=== PATIENT | female | born 1935 | race Caucasian/White ===

== ENCOUNTER → 2021-05-04 09:02 | Outpatient (BNVA) | payer MEDICARE, SELFPAY | PROVIDERS: PCP Family Medicine; Visit Provider Internal Medicine | DX: M47.817 Spondylosis without myelopathy or radiculopathy, lumbosacral region (principal); M47.812 Spondylosis without myelopathy or radiculopathy, cervical region; M81.0 Age-related osteoporosis without current pathological fracture; R51.9 Headache, unspecified; I10 Essential (primary) hypertension; Z88.8 Allergy status to other drugs, medicaments and biological substances; Z91.040 Latex allergy status; Z79.899 Other long term (current) drug therapy | CPT/HCPCS: 99202; Q3014 ==

== ENCOUNTER 2021-05-27 06:17 | Outpatient (REF) | payer MEDICARE, SELFPAY ==
--- NOTE | ~2021-05-27 | FL_ITS ---
EXAMINATION: XR FLUOROSCOPY WITH IMAGES CLINICAL INFORMATION: M47.812 - Spondylosis without myelopathy or radiculopathy COMPARISON: None. TECHNIQUE: Fluoroscopy performed by Dr. Dudley. Fluoroscopy time: 1.5 minutes DAP: 5.42 Gycm2 Images: 10 FINDINGS: The lateral views show spinal needles overlying the cervical neural foramen C2 through C5. There are also some spinal needles overlying upper cervical facets. There is some contrast seen in the paraspinal soft tissues, possibly nerve sheaths. No visible vascular communication. FL/FL guidance in treatment room IMPRESSION: Fluoroscopy for pain management procedures.
== END 2021-05-27 06:18 | disposition home or self-care (01) ==
LOC: HO.RADIR 06:17
PROVIDERS: Visit Provider Internal Medicine
DX: M47.812 Spondylosis without myelopathy or radiculopathy, cervical region (principal)
CPT/HCPCS: Q9967

== ENCOUNTER → 2021-05-27 08:22 | Outpatient (BNVA) | payer MEDICARE, SELFPAY | PROVIDERS: PCP Family Medicine; Visit Provider Internal Medicine | DX: M47.812 Spondylosis without myelopathy or radiculopathy, cervical region (principal); R51.9 Headache, unspecified; I10 Essential (primary) hypertension; Z88.8 Allergy status to other drugs, medicaments and biological substances; Z91.040 Latex allergy status | CPT/HCPCS: 64490; 64491; 64492; Q9967 ==

== ENCOUNTER → 2021-06-01 08:12 | Outpatient (BNVA) | payer MEDICARE, SELFPAY | PROVIDERS: PCP Family Medicine; Visit Provider Internal Medicine | DX: M47.812 Spondylosis without myelopathy or radiculopathy, cervical region (principal); R51.9 Headache, unspecified | CPT/HCPCS: 99212 ==

== ENCOUNTER 2021-07-01 05:44 | Outpatient (REF) | payer MEDICARE, SELFPAY ==
--- NOTE | ~2021-07-01 | FL_ITS ---
EXAMINATION: XR FLUOROSCOPY WITH IMAGES CLINICAL INFORMATION: Spondylosis without myelopathy or radiculopathy. COMPARISON: Previous exam May 2021. TECHNIQUE: Fluoroscopy performed by Aye Simmons NP. Fluoroscopy time: 1.2 minutes DAP: 2.3 Gy-cm2 Images: 6 FINDINGS: Images demonstrate needle placement and contrast injection adjacent to the bilateral C2-C3, C3-C4, and C4-C5 neural foramen/facet joints FL/FL guidance in treatment room IMPRESSION: Fluoroscopy guidance for cervical spine pain management procedure.
== END 2021-07-01 05:45 | disposition home or self-care (01) ==
LOC: HO.RADIR 05:44
PROVIDERS: Visit Provider Internal Medicine
DX: M47.812 Spondylosis without myelopathy or radiculopathy, cervical region (principal); R51.9 Headache, unspecified
CPT/HCPCS: 64490; 64491; 64492; J1100; Q9967

== ENCOUNTER → 2021-07-31 09:05 | Outpatient (BNVA) | payer MEDICARE, SELFPAY | PROVIDERS: PCP Family Medicine; Visit Provider Internal Medicine | DX: M47.812 Spondylosis without myelopathy or radiculopathy, cervical region (principal); R51.9 Headache, unspecified | CPT/HCPCS: 99212 ==

== ENCOUNTER 2021-09-02 06:07 | Outpatient (REF) | payer MEDICARE, SELFPAY ==
--- NOTE | ~2021-09-02 | FL_ITS ---
EXAMINATION: XR FLUOROSCOPY WITH IMAGES CLINICAL INFORMATION: Spondylosis without myelopathy or radiculopathy. COMPARISON: None. TECHNIQUE: Fluoroscopy performed by Aye Simmons NP. Fluoroscopy time: 0.8 minutes DAP: 2.40 Gy-cm2 Images: 4 FINDINGS: There are 4 digital images obtained with 2 needles positioned adjacent to the right C3 and C4 transverse processes for pain management. FL/FL guidance in treatment room IMPRESSION: Fluoroscopy was provided to Aye Simmons for pain management.
== END 2021-09-02 06:08 | disposition home or self-care (01) ==
LOC: HO.RADIR 06:07
PROVIDERS: Visit Provider Internal Medicine
DX: M47.812 Spondylosis without myelopathy or radiculopathy, cervical region (principal)
CPT/HCPCS: 64633; 64634

== ENCOUNTER → 2021-10-05 08:05 | Outpatient (BNVA) | payer MEDICARE, SELFPAY | PROVIDERS: PCP Family Medicine; Visit Provider Internal Medicine | DX: M47.812 Spondylosis without myelopathy or radiculopathy, cervical region (principal); M25.512 Pain in left shoulder | CPT/HCPCS: 99212 ==

== ENCOUNTER 2021-11-18 05:56 | Outpatient (REF) | payer MEDICARE, SELFPAY ==
--- NOTE | ~2021-11-18 | FL_ITS ---
EXAMINATION: XR FLUOROSCOPY WITH IMAGES CLINICAL INFORMATION: Left shoulder pain COMPARISON: Chest radiographs 07/08/2016 TECHNIQUE: Fluoroscopy performed by Dr. Ankur Dudley. Fluoroscopy time: under 1 minute. DAP: 0.102 Gycm2 Images: 1 FINDINGS: There is spinal needle overlying the superior medial aspect left humeral head. There is mild degenerative spurring at inferomedial humeral head. FL/FL guidance in treatment room IMPRESSION: Fluoroscopy for pain management procedure.
--- NOTE | ~2021-11-18 | FL_ITS ---
EXAMINATION: XR FLUOROSCOPY WITH IMAGES CLINICAL INFORMATION: M47.812 - Spondylosis without myelopathy or radiculopathy COMPARISON: Fluoroscopy with spot views 09/02/2021 TECHNIQUE: Fluoroscopy performed by Dr. Ankur Dudley. Fluoroscopy time: 0.7 minutes DAP: 1.37 Gycm2 Images: 5 FINDINGS: There are spinal needles overlying the right lateral masses cervical spine at 3 levels, approximately C2, C3, C4 on the lateral projection. FL/FL guidance in treatment room IMPRESSION: Fluoroscopy for pain management procedure.
== END 2021-11-18 05:57 | disposition home or self-care (01) ==
LOC: HO.RADIR 05:56
PROVIDERS: Visit Provider Internal Medicine
DX: M47.812 Spondylosis without myelopathy or radiculopathy, cervical region (principal); M25.512 Pain in left shoulder
CPT/HCPCS: 20610; 20611; 64491; 64633; 64634; J3300

== ENCOUNTER → 2021-12-18 08:55 | Outpatient (BNVA) | payer MEDICARE, SELFPAY | PROVIDERS: PCP Family Medicine; Visit Provider Internal Medicine | DX: Z13.89 Encounter for screening for other disorder (principal) | CPT/HCPCS: Q3014 ==

== ENCOUNTER 2024-04-26 11:49 | Outpatient (REF) | payer MEDICARE, SELFPAY ==
--- NOTE | ~2024-04-26 | XR_ITS ---
EXAMINATION: XR HIP, RIGHT, WITH AP PELVIS CLINICAL INFORMATION: Right leg, groin pain. COMPARISON: CT imaging from 12/07/2013 TECHNIQUE: Two views of the right hip. Pelvis, AP view. FINDINGS: The osseous pelvic ring is intact. Alignment is normal the pubic symphysis, hips and sacroiliac joints. Chronic severe hypertrophic facet arthropathy at L5-S1. Sacrum and sacroiliac joints are unremarkable. The old opacities at the inferior pelvis require clinical information since they could be from prior injection of a urethral bulking agent. The tibia is identified. The femoral head is well-positioned within the acetabulum. Small marginal osteophytes are noted. No femoral fracture or osteonecrosis. Atherosclerotic calcification of iliac and femoral arteries. XR/XR hip RT w PEL1V IMPRESSION: * Chronic hypertrophic facet arthropathy at L4-5 and L5-S1. * Mild osteoarthrosis of the right hip. * No acute process. No fracture or malalignment.
== END 2024-04-26 11:50 | disposition home or self-care (01) ==
LOC: HO.XRAY 11:49
PROVIDERS: PCP Family Medicine; Visit Provider Family Medicine
DX: M79.604 Pain in right leg (principal); R10.30 Lower abdominal pain, unspecified
CPT/HCPCS: 73502

== ENCOUNTER 2024-12-06 06:28 | Day surgery (SDC) | payer MEDICARE, SELFPAY ==
[2024-12-04 11:42] VITALS: BMI 31.5
--- NOTE | 2024-12-05 10:04 | P.CONAN_ITS ---
Documented by User: Lisa Marsh NP 12/05/24 10:11 HPI - Anesthesia Eval Consult details Narrative: 89yo F for Colonoscopy Afib - xarelto Follow [facility]. Optimized to proceed. Notes nml pharm nuc stress 11/2024 and echo 11/2024 showing mild to mod aortic stenosis (unchanged from 2021) PMFSH Active Problems Active Problems: All Active Problems Cervical spondylosis (Acute) Left shoulder pain (Acute) Headache, cervicogenic (Acute) Osteoporosis (Acute) Lumbar and sacral spondyloarthritis (Acute) Cervical spondyloarthritis (Acute) Osteoarthritis (Acute) Sciatica (Acute) COPD (chronic obstructive pulmonary disease) (Acute) Leg cramps (Acute) Insomnia (Acute) Sinusitis (Acute) GERD (gastroesophageal reflux disease) (Acute) Hypertension (Acute) Past Medical History Medical History Hammer toe Hx of lipoma Atrial fibrillation Asthma Hiatal hernia Left shoulder pain Headache, cervicogenic Osteoporosis 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 Osteoarthritis Sciatica Pneumonia Venous insufficiency Diverticulitis COPD (chronic obstructive pulmonary disease) Leg cramps Insomnia Sinusitis GERD (gastroesophageal reflux disease) Hypertension Surgical History Surgical History History of surgery on arm History of surgery on wrist History of bilateral cataract extraction Hx of shoulder surgery History of left knee replacement History of carpal tunnel release History of lobectomy of lung Hx of foot surgery Hx of section History of esophagogastroduodenoscopy (EGD) H/O colonoscopy Status post revision of total knee replacement History of total knee replacement (TKR) H/O total hysterectomy H/O vein stripping Social History Social History Are you a primary care provider to a significant other at home: No Do you presently have visiting nurse or other home services: No Alcohol intake: never Patient Tobacco Use Status: Never used Tobacco Use of substances other than those prescribed or required for medical reasons: No Have you been hit, kicked, punched, or otherwise hurt by someone within the past year? If so, by whom?: No Advance Directives: No Advance Directives Information Provided: Yes Recently lost weight without trying: No Nutrition Risks: No Nutritional Risk Meds Allergies Allergy/AdvReac Type Severity Reaction Status Date / Time prednisone AdvReac Severe mouth sores Verified 12/06/24 06:54 benzoin AdvReac Intermediate rash Verified 12/06/24 06:54 latex Allergy Intermediate Itching Uncoded 12/18/21 08:55 Home Medications ?Medication ?Instructions ?Recorded ?Confirmed ?Last Taken ?Type cholecalciferol (vitamin D3) 25 25 mcg PO BID 05/04/21 12/04/24 Unknown History mcg (1,000 unit) capsule gabapentin 300 mg capsule 300 mg PO BID 05/04/21 12/04/24 Unknown History magnesium 250 mg tablet 250 mg PO DAILY 05/04/21 12/04/24 Unknown History montelukast 10 mg tablet 10 mg PO BEDTIME 05/04/21 12/04/24 Unknown History tramadol 50 mg tablet 50 mg PO DAILY PRN Pain 05/04/21 12/04/24 Unknown History spironolactone 25 mg tablet 25 mg PO DAILY 07/31/21 12/06/24 12/03/24 History albuterol sulfate 90 mcg/actuation 1 puff inhalation QID PRN 12/04/24 12/04/24 Unknown History aerosol inhaler Shortness Of Breath Or Wheezing betamethasone dipropionate 0.05 % 1 appl topical BID PRN Skin 12/04/24 12/04/24 Unknown History topical ointment Irritation budesonide-formoterol HFA 160 inhalation BID 12/04/24 Unknown History mcg-4.5 mcg/actuation aerosol inhaler (Breyna) calcium carbonate (Calcium 600) 600 mg PO BIDAC 12/04/24 12/04/24 Unknown History fluticasone 250 mcg-salmeterol 50 1 inh inhalation BID 12/04/24 12/04/24 Unknown History mcg/dose blistr powdr for inhalation (Advair Diskus) furosemide 20 mg tablet 20 mg PO DAILY 12/04/24 12/04/24 Unknown History multivitamin with minerals-folic 1 tab PO DAILY 12/04/24 12/04/24 Unknown History acid 80 mcg chewable tablet (Centrum Adult 50 Plus) rivaroxaban 20 mg tablet (Xarelto) 20 mg DAILY 12/04/24 12/06/24 12/03/24 History losartan 100 mg tablet 100 mg DAILY 12/06/24 12/06/2412/06/25 History terazosin 5 mg capsule 5 mg BEDTIME 12/06/24 12/06/24 12/06/24 History Exam Height,Weight and Vital Signs: Height 4 ft 11 in Weight 70.76 kg Narrative Narrative: EKG 10/2024 NSR ?LAE ECHO 11/2023 LV function and size nml. Borderline LVH. EF in range of 60%. Moderate DD. RV size and function nml LA moderately dilated. RA nml. 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 Ascending aorta was measured at 3.5 and is now 3.8cm in diameter Pharm Nuc Stress 11/2024 Nml without chest pain or ischemic ECG changes Perfusion imaging revealed no areas of ischemia or infarct LVEF 68% Assessment and Plan Assessment Anesthesia Assessment: Chart Reviewed Documented by User: Neetu Hardy MD 12/06/24 08:01 [facility] Active Problems Active Problems: All Active Problems Cervical spondylosis (Acute) Left shoulder pain (Acute) Headache, cervicogenic (Acute) Osteoporosis (Acute) Lumbar and sacral spondyloarthritis (Acute) Cervical spondyloarthritis (Acute) Osteoarthritis (Acute) Sciatica (Acute) COPD (chronic obstructive pulmonary disease) (Acute) Leg cramps (Acute) Insomnia (Acute) Sinusitis (Acute) GERD (gastroesophageal reflux disease) (Acute) Hypertension (Acute) Paroxysmal afib Past Medical History Medical History Hammer toe Hx of lipoma Atrial fibrillation Asthma Hiatal hernia Left shoulder pain Headache, cervicogenic Osteoporosis 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 Osteoarthritis Sciatica Pneumonia Venous insufficiency Diverticulitis COPD (chronic obstructive pulmonary disease) Leg cramps Insomnia Sinusitis GERD (gastroesophageal reflux disease) Hypertension Family History Family history of problems with anesthesia: No Surgical History Surgical History History of surgery on arm History of surgery on wrist History of bilateral cataract extraction Hx of shoulder surgery History of left knee replacement History of carpal tunnel release History of lobectomy of lung Hx of foot surgery Hx of section History of esophagogastroduodenoscopy (EGD) H/O colonoscopy Status post revision of total knee replacement History of total knee replacement (TKR) H/O total hysterectomy H/O vein stripping History of Problems with Anesthesia: No Social History Social History Are you a primary care provider to a significant other at home: No Do you presently have visiting nurse or other home services: No Alcohol intake: never Patient Tobacco Use Status: Never used Tobacco Use of substances other than those prescribed or required for medical reasons: No Have you been hit, kicked, punched, or otherwise hurt by someone within the past year? If so, by whom?: No Advance Directives: No Advance Directives Information Provided: Yes Recently lost weight without trying: No Nutrition Risks: No Nutritional Risk Meds Allergies Allergy/AdvReac Type Severity Reaction Status Date / Time prednisone AdvReac Severe mouth sores Verified 12/06/24 06:54 benzoin AdvReac Intermediate rash Verified 12/06/24 06:54 latex Allergy Intermediate Itching Uncoded 12/18/21 08:55 Home Medications ?Medication ?Instructions ?Recorded ?Confirmed ?Last Taken ?Type cholecalciferol (vitamin D3) 25 25 mcg PO BID 05/04/21 12/04/24 Unknown History mcg (1,000 unit) capsule gabapentin 300 mg capsule 300 mg PO BID 05/04/21 12/04/24 Unknown History magnesium 250 mg tablet 250 mg PO DAILY 05/04/21 12/04/24 Unknown History montelukast 10 mg tablet 10 mg PO BEDTIME 05/04/21 12/04/24 Unknown History tramadol 50 mg tablet 50 mg PO DAILY PRN Pain 05/04/21 12/04/24 Unknown History spironolactone 25 mg tablet 25 mg PO DAILY 07/31/21 12/06/24 12/03/24 History albuterol sulfate 90 mcg/actuation 1 puff inhalation QID PRN 12/04/24 12/04/24 Unknown History aerosol inhaler Shortness Of Breath Or Wheezing betamethasone dipropionate 0.05 % 1 appl topical BID PRN Skin 12/04/24 12/04/24 Unknown History topical ointment Irritation budesonide-formoterol HFA 160 inhalation BID 12/04/24 Unknown History mcg-4.5 mcg/actuation aerosol inhaler (Breyna) calcium carbonate (Calcium 600) 600 mg PO BIDAC 12/04/24 12/04/24 Unknown History fluticasone 250 mcg-salmeterol 50 1 inh inhalation BID 12/04/24 12/04/24 Unknown History mcg/dose blistr powdr for inhalation (Advair Diskus) furosemide 20 mg tablet 20 mg PO DAILY 12/04/24 12/04/24 Unknown History multivitamin with minerals-folic 1 tab PO DAILY 12/04/24 12/04/24 Unknown History acid 80 mcg chewable tablet (Centrum Adult 50 Plus) rivaroxaban 20 mg tablet (Xarelto) 20 mg DAILY 12/04/24 12/06/24 12/03/24 History losartan 100 mg tablet 100 mg DAILY 12/06/24 12/06/24 12/06/24 History terazosin 5 mg capsule 5 mg BEDTIME 12/06/24 12/06/24 12/06/24 History Exam Height,Weight and Vital Signs: Height 4 ft 11 in Weight 70.76 kg Vital Signs Temp Pulse Resp BP Pulse Ox O2 Del Method 12/06/24 07:08 98.7 F 72 14 117/48 L 95 Room Air Airway Mallampati Class: II TM Dist: >3cm Neck ROM: Full Denture: Upper and Lower Loose/Missing/Broken Teeth: Yes Heart: RRR Lungs: CTAB Assessment and Plan Assessment Anesthesia Assessment: Anesthesia Plan Discussed and Chart Reviewed Final Anesthetic Review Family History of Problems with Anesthesia: No History of Problems with Anesthesia: No NPO: Yes ASA Class: III Final Preanesthetic Review: No Changes in Pt Med Stat, Meds/Allgs Chart Reviewed, Consent Obtained/Reviewed and Anes Risks/Benef Reviewed Patient Risk: Intermediate Procedure Risk: Low Assessment/Block/Sedation in SS: Assess/Block/Sedation-SS Anesthetic Plan Anesthetic Plan: TIVA Disposition: Standard PACU
[2024-12-06 07:08] VITALS: BP 117/48; PULSE 72; RESP 14; TEMP 37.1; O2SAT 95; BMI 31.2
[2024-12-06] MEDS: Lactated Ringers 1,000 ML 50 ML IVCONT (07:16)
[2024-12-06 08:32] VITALS: BP 99/39; PULSE 69; RESP 16; TEMP 36.8; O2SAT 98
[2024-12-06 08:39] VITALS: BP 93/42; PULSE 67; RESP 16; O2SAT 97
--- NOTE | 2024-12-06 08:40 | PM.OP ---
Brief Operative Note Date of Service: 12/06/24 Pre-op diagnosis: Rectal bleeding Post-op diagnosis: other (Distal rectal mass, Diverticulosis) Procedure: Colonoscopy to the cecum with biopsies Surgeon: Duke Whitley MD Anesthesia: MAC Was an Wet Crown Blocking Operator used for this Procedure?: No Estimated blood loss (mL): 2.0 Pathology: other (A. Distal rectal mass) Condition: stable Disposition: PACU
[2024-12-06 08:47] VITALS: BP 129/45; PULSE 70; RESP 16; O2SAT 97
[2024-12-06 08:48] VITALS: BP 126/43; PULSE 67; RESP 16; O2SAT 96
[2024-12-06 08:54] VITALS: BP 122/53; PULSE 70; RESP 16; TEMP 37.2; O2SAT 95
--- NOTE | 2024-12-06 09:52 | OP_ITS ---
DATE OF SERVICE: 12/06/2024 SURGEON: Duke Whitley MD INDICATIONS: Patient presents for evaluation of intermittent hematochezia and fecal soiling. Full consent has been obtained from her for this, including risks of bleeding and perforation. PREOPERATIVE DIAGNOSIS: POSTOPERATIVE DIAGNOSIS: PROCEDURE PERFORMED: Colonoscopy to cecum with biopsies. ESTIMATED BLOOD LOSS: COMPLICATIONS: ANESTHESIA: Medication used, monitored anesthesia care. ASSISTANTS: SPECIMENS: PREOPERATIVE DIAGNOSES: Hematochezia and fecal soiling. POSTOPERATIVE DIAGNOSES: Hematochezia and fecal soiling. Distal rectal mass, internal hemorrhoids, diverticulosis. DESCRIPTION OF PROCEDURE: Patient was placed in left lateral decubitus position. The digital rectal exam revealed some external hemorrhoidal tissue. The Olympus video pediatric colonoscope was entered into the rectum and advanced easily to the cecum. Once in the cecum, I did identify normal-appearing cecal pouch with appendiceal orifice and a normal-appearing ileocecal valve. The entire cecum and ileocecal valve appeared normal. Scope was slowly withdrawn assessing all mucosal surfaces carefully. Preparation was excellent. I did not visualize any sign of colitis nor angiodysplasia. There was a moderate amount of sigmoid diverticulosis. I did not visualize any polyps in the colon. Once in the rectum, I did retroflex and there was a mass seen in the distal most portion of the rectum abutting the dentate line in the area of some hemorrhoids. The lesion encompassed approximately 50% of the circumference of the lower rectum. It was not particularly ulcerated nor friable, but clearly was abnormal tissue and consistent with at least adenomatous or villous adenomatous tissue. It was quite flat with one edge that was particularly large and lobulated and then the remaining tissue was quite flat along the surface of the distal rectum. Multiple biopsies were obtained from it. I did not attempt to remove it given its location and appearance. The scope was straightened and withdrawn from the patient. She tolerated the procedure well and was returned to the recovery area in stable condition. IMPRESSION: 1. Distal rectal mass, status post biopsy. 2. Diverticulosis. PLAN: Results of the biopsies will be checked and then further plans regarding potential treatment options will be discussed with her. I did review the findings with her and her in detail today. If there is cancer in the biopsies, then she would need an Oncology and Surgical referral with consideration for something such as radiation treatment. On the other hand, if the biopsies all show only adenomatous or villous adenomatous tissue without malignancy, then another option could be attempted transanal endoscopic removal. However, its proximity to the dentate line and hemorrhoids could prove to make it difficult to remove in its entirety. I did advise her to resume her Xarelto on December 09. She was advised to stay off all aspirin and NSAIDs long-term. Again, this has all been reviewed with the patient and her and I shall follow up with them once we have the biopsy results. MD KEENA Rodas/KEIKO / [id number] MTDD
== END 2024-12-06 09:46 | disposition home or self-care (01) ==
PROVIDERS: PCP Family Medicine; Visit Provider Internal Medicine
PROC: 0DJD8ZZ Inspection of Lower Intestinal Tract, Via Natural or Artificial Opening Endoscopic (ICD-10-PCS; CPT 45378; principal; 2024-12-06 07:30)
DX: K62.5 Hemorrhage of anus and rectum (principal); R15.1 Fecal smearing; Z86.0101 Personal history of adenomatous and serrated colon polyps; D12.8 Benign neoplasm of rectum; K57.30 Diverticulosis of large intestine without perforation or abscess without bleeding; Z87.19 Personal history of other diseases of the digestive system; K64.8 Other hemorrhoids; K64.4 Residual hemorrhoidal skin tags; K21.9 Gastro-esophageal reflux disease without esophagitis; I10 Essential (primary) hypertension; I48.91 Unspecified atrial fibrillation; J45.909 Unspecified asthma, uncomplicated; M81.0 Age-related osteoporosis without current pathological fracture; Z79.01 Long term (current) use of anticoagulants; Z79.51 Long term (current) use of inhaled steroids; Z79.899 Other long term (current) drug therapy; Z91.040 Latex allergy status; Z88.8 Allergy status to other drugs, medicaments and biological substances; Z98.890 Other specified postprocedural states
CPT/HCPCS: 45380; 88305; J2003; J2704

== ENCOUNTER 2024-12-26 11:23 | Outpatient (AMB) | payer MEDICARE, SELFPAY ==
--- NOTE | 2024-12-26 11:22 | MHC.OFFVIS ---
Vital Signs 12/26/24 11:35 Height 4 ft 11 in Weight 162 lb 6 oz BMI 32.8 BP 157/69 H Blood Pressure Location Lt brachial Position Sitting Pulse 69 Intake Visit Reasons: hematochezia Intake Note: Patient is seen in office for evaluation of hematochezia. Pt c/o: onset few weeks, blood in toilet paper and bowl, denies n/v/d/c, no abdominal pain, or prior concerns with bowels [employer] Required: No Accompanied by: Daughter Allergies prednisone Adverse Reaction (Severe, Verified 12/26/24 11:30) mouth sores benzoin Adverse Reaction (Intermediate, Verified 12/26/24 11:30) rash latex Allergy (Intermediate, Uncoded 12/26/24 11:30) Itching HPI HPI hematochezia: Details: 89-year-old female referred for rectal lesion. She had undergone a colonoscopy with Dr. Whitley last 12/04/2024 because of this is of blood per rectum. She was noted to have what appeared to be an adenomatous looking lesion in the very distal rectum near the dentate line. Biopsy. This showed a tubulovillous adenoma. This was not resectable endoscopically because of the size. She was therefore referred to me. She describes occasional bleeding. She says that this started around November of 2024. She says that this would be bright blood per rectum. She still sees this occasionally. She is on Eliquis and has been on this for many years because of atrial fibrillation. She also has a history of a DVT and a PE more than 50 years ago. 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 Osteoarthritis Sciatica Pneumonia Venous insufficiency Diverticulitis COPD (chronic obstructive pulmonary disease) Leg cramps Insomnia Sinusitis GERD (gastroesophageal reflux disease) Hypertension Surgical History History of surgery on arm History of surgery on wrist History of bilateral cataract extraction Hx of shoulder surgery History of left knee replacement History of carpal tunnel release History of lobectomy of lung Hx of foot surgery Hx of section History of esophagogastroduodenoscopy (EGD) H/O colonoscopy Status post revision of total knee replacement History of total knee replacement (TKR) H/O total hysterectomy H/O vein stripping Social History Are you a primary career law clerk to a significant other at home: No Do you presently have visiting nurse or other home services: No Alcohol intake: never Patient Tobacco Use Status: Never used Tobacco Review of Systems Const Denies chills and Denies fever(s) Card Denies chest pain, Reports dyspnea (She has asthma) and Reports dyspnea on exertion Resp Denies cough, Reports dyspnea (She has asthma) and Reports dyspnea on exertion GI Reports hematochezia and Denies change in bowel habits Denies hematuria Musc Denies back pain, Reports arthralgias and Denies limited range of motion Neuro Denies focal weakness and Denies convulsions Psych Denies depression and Denies mood swings Physical Exam Vital Signs: Last Vital Signs Pulse 69 12/26/24 11:35 BP 157/69 H 12/26/24 11:35 BMI result Body Mass Index 32.8 Const General: comfortable and no acute distress Orientation/consciousness: patient oriented x3 Neck Neck: Yes no lymphadenopathy Resp Auscultation: clear to auscultation bilaterally Cardio Rhythm: regular rhythm GI Palpation (GI): Soft to palpation, nontender and no guarding Neuro General: patient oriented x3 Assessment & Plan Assessment & Plan (1) Rectal mass: Code(s): K62.89 - Other specified diseases of anus and rectum Category: Medical Plan: She has this flat, wide lesion in the rectum at the level of the dentate line. Photographic documentation has been reviewed. I explained to her the technique of exam under anesthesia, and excision of the rectal lesion under anesthesia. I reviewed the risks including but not limited to bleeding, infections, poor healing, postop pain, as well as benefits and alternatives. She understands that anesthesia itself has perioperative risks. I explained to her what to expect postoperatively. She wants to proceed. She is on Eliquis and this will be held for 3 days preoperatively. Coding Level of Care Code New Pt Level 3 (21757) Diagnoses Rectal mass K62.89
[2024-12-26 11:35] VITALS: BP 157/69; PULSE 69; BMI 32.8
== END 2024-12-26 11:42 | disposition home or self-care (01) ==
LOC: HO.HGS 11:23
PROVIDERS: PCP Family Medicine; Visit Provider Surgery
DX: K62.89 Other specified diseases of anus and rectum (principal)
CPT/HCPCS: 99203

== ENCOUNTER → 2024-12-26 11:23 | Outpatient (BNVA) | payer MEDICARE, SELFPAY | PROVIDERS: PCP Family Medicine; Visit Provider Surgery | DX: K62.89 Other specified diseases of anus and rectum (principal); Z79.01 Long term (current) use of anticoagulants | CPT/HCPCS: 99202 ==

== ENCOUNTER 2025-01-29 09:52 | Day surgery (SDC) | payer MEDICARE, SELFPAY ==
[2025-01-25 13:56] VITALS: BMI 31.7
--- NOTE | 2025-01-28 08:58 | P.CONAN_ITS ---
Documented by User: Lisa Marsh NP 01/28/25 12:32 HPI - Anesthesia Eval Consult details Narrative: 89yo F for Excision Rectal Lesion Follows [facility] for PAF (xarelto), htn, heart failure, aortic stenosis - optimized per 01/2025 office visit [facility] Active Problems Active Problems: All Active Problems Cervical spondylosis (Acute) Rectal mass (Acute) Left shoulder pain (Acute) Headache, cervicogenic (Acute) Osteoporosis (Acute) Lumbar and sacral spondyloarthritis (Acute) Cervical spondyloarthritis (Acute) Osteoarthritis (Acute) Sciatica (Acute) COPD (chronic obstructive pulmonary disease) (Acute) Leg cramps (Acute) Insomnia (Acute) Sinusitis (Acute) GERD (gastroesophageal reflux disease) (Acute) Hypertension (Acute) Past Medical History Medical History (Updated 01/25/25 @ 13:56 by Ingrid Daniels RN) Atrial septal aneurysm Chest pain Absence of lobe of lung Secondary hypercoagulable state Nonrheumatic aortic (valve) stenosis Dyspnea on exertion Diastolic heart failure Rectal mass Hammer toe Hx of lipoma Atrial fibrillation Asthma Hiatal hernia Left shoulder pain Headache, cervicogenic Osteoporosis 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 Osteoarthritis Sciatica Pneumonia Venous insufficiency Diverticulitis COPD (chronic obstructive pulmonary disease) Leg cramps Insomnia Sinusitis GERD (gastroesophageal reflux disease) Hypertension Family History Family history of problems with anesthesia: No Surgical History Surgical History (Updated 01/29/25 @ 10:42 by Veronika Mitchell RN) History of surgery on arm History of surgery on wrist History of bilateral cataract extraction Hx of shoulder surgery History of left knee replacement History of carpal tunnel release History of lobectomy of lung Hx of foot surgery Hx of section History of esophagogastroduodenoscopy (EGD) H/O colonoscopy Status post revision of total knee replacement History of total knee replacement (TKR) H/O total hysterectomy H/O vein stripping History of Problems with Anesthesia: No Social History Social History Are you a primary healthcare social worker to a significant other at home: No Do you presently have visiting nurse or other home services: No Alcohol intake: never Patient Tobacco Use Status: Never used Tobacco Use of substances other than those prescribed or required for medical reasons: No Are you DNR?: No Advance Directives: No Advance Directives Information Provided: Yes Patient : No : No Poor oral hygiene: No Meds Allergies Allergy/AdvReac Type Severity Reaction Status Date / Time prednisone AdvReac Severe mouth sores Verified 12/26/24 11:30 benzoin AdvReac Intermediate rash Verified 12/26/24 11:30 latex Allergy Intermediate Itching Uncoded 12/26/24 11:30 Home Medications ?Medication ?Instructions ?Recorded ?Confirmed ?Last Taken ?Type cholecalciferol (vitamin D3) 25 25 mcg PO BID 05/04/21 12/04/24 Unknown History mcg (1,000 unit) capsule gabapentin 300 mg capsule 300 mg PO BID 05/04/21 12/04/24 Unknown History magnesium 250 mg tablet 250 mg PO DAILY 05/04/21 12/04/24 Unknown History montelukast 10 mg tablet 10 mg PO BEDTIME 05/04/21 12/04/24 Unknown History tramadol 50 mg tablet 50 mg PO DAILY PRN Pain 05/04/21 12/04/24 Unknown History spironolactone 25 mg tablet 25 mg PO DAILY 07/31/21 12/06/24 12/03/24 History albuterol sulfate 90 mcg/actuation 1 puff inhalation QID PRN 12/04/24 12/04/24 01/29/25 08:00 History aerosol inhaler Shortness Of Breath Or Wheezing betamethasone dipropionate 0.05 % 1 appl topical BID PRN Skin 12/04/24 12/04/24 Unknown History topical ointment Irritation budesonide-formoterol HFA 160 inhalation BID 12/04/24 01/29/25 08:00 History mcg-4.5 mcg/actuation aerosol inhaler (Breyna) calcium carbonate (Calcium 600) 600 mg PO BIDAC 12/04/24 12/04/24 Unknown History fluticasone 250 mcg-salmeterol 50 1 inh inhalation BID 12/04/24 12/04/24 Unknown History mcg/dose blistr powdr for inhalation (Advair Diskus) furosemide 20 mg tablet 20 mg PO DAILY 12/04/24 12/04/24 Unknown History multivitamin with minerals-folic 1 tab PO DAILY 12/04/24 12/04/24 Unknown History acid 80 mcg chewable tablet (Centrum Adult 50 Plus) rivaroxaban 20 mg tablet (Xarelto) 20 mg DAILY 12/04/24 12/06/24 01/25/25 History losartan 100 mg tablet 100 mg DAILY 12/06/24 12/06/24 12/06/24 History terazosin 5 mg capsule 5 mg BEDTIME 12/06/24 12/06/24 12/06/24 History Exam Height,Weight and Vital Signs: Height 4 ft 11 in Weight 71.214 kg Narrative Narrative: EKG 10/2024 NSR @ 67, ? LAE Nuc stress 11/2024 nml, no areas of ischemia or infarction noted ECHO 11/2024 nml LV chamber size with mild concentric LVH EF 60-65% Grade 2 DD No regional WMA Moderately dilated LA with an atrial septal aneurysm that is highly mobile nml RA Nml RV size and function Mild aortic valve regurg with a centrally directed jet Mild to moderate with mean gradient 17-18 Moderate TR without stenosis, molderately elevated RV sys pressure. Ascending aorta just above upper limits of nml at 3.8cm No significant change from 09/2022 Assessment and Plan Assessment Anesthesia Assessment: Chart Reviewed Final Anesthetic Review Family History of Problems with Anesthesia: No History of Problems with Anesthesia: No Documented by User: Stephany Mendoza MD 01/29/25 10:59 [facility] Past Medical History Medical History (Updated 01/25/25 @ 13:56 by Ingrid Daniels RN) Atrial septal aneurysm Chest pain Absence of lobe of lung Secondary hypercoagulable state Nonrheumatic aortic (valve) stenosis Dyspnea on exertion Diastolic heart failure Rectal mass Hammer toe Hx of lipoma Atrial fibrillation Asthma Hiatal hernia Left shoulder pain Headache, cervicogenic Osteoporosis 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 Osteoarthritis Sciatica Pneumonia Venous insufficiency Diverticulitis COPD (chronic obstructive pulmonary disease) Leg cramps Insomnia Sinusitis GERD (gastroesophageal reflux disease) Hypertension Surgical History Surgical History (Updated 01/29/25 @ 10:42 by Veronika Mitchell RN) History of surgery on arm History of surgery on wrist History of bilateral cataract extraction Hx of shoulder surgery History of left knee replacement History of carpal tunnel release History of lobectomy of lung Hx of foot surgery Hx of section History of esophagogastroduodenoscopy (EGD) H/O colonoscopy Status post revision of total knee replacement History of total knee replacement (TKR) H/O total hysterectomy H/O vein stripping Social History Social History Are you a primary healthcare social worker to a significant other at home: No Do you presently have visiting nurse or other home services: No Alcohol intake: never Patient Tobacco Use Status: Never used Tobacco Use of substances other than those prescribed or required for medical reasons: No Are you DNR?: No Advance Directives: No Advance Directives Information Provided: Yes Patient : No : No Poor oral hygiene: No Meds Allergies Allergy/AdvReac Type Severity Reaction Status Date / Time prednisone AdvReac Severe mouth sores Verified 12/26/24 11:30 benzoin AdvReac Intermediate rash Verified 12/26/24 11:30 latex Allergy Intermediate Itching Uncoded 12/26/24 11:30 Home Medications ?Medication ?Instructions ?Recorded ?Confirmed ?Last Taken ?Type cholecalciferol (vitamin D3) 25 25 mcg PO BID 05/04/21 12/04/24 Unknown History mcg (1,000 unit) capsule gabapentin 300 mg capsule 300 mg PO BID 05/04/21 12/04/24 Unknown History magnesium 250 mg tablet 250 mg PO DAILY 05/04/21 12/04/24 Unknown History montelukast 10 mg tablet 10 mg PO BEDTIME 05/04/21 12/04/24 Unknown History tramadol 50 mg tablet 50 mg PO DAILY PRN Pain 05/04/21 12/04/24 Unknown History spironolactone 25 mg tablet 25 mg PO DAILY 07/31/21 12/06/24 12/03/24 History albuterol sulfate 90 mcg/actuation 1 puff inhalation QID PRN 12/04/24 12/04/24 01/29/25 08:00 History aerosol inhaler Shortness Of Breath Or Wheezing betamethasone dipropionate 0.05 % 1 appl topical BID PRN Skin 12/04/24 12/04/24 Unknown History topical ointment Irritation budesonide-formoterol HFA 160 inhalation BID 12/04/24 01/29/25 08:00 History mcg-4.5 mcg/actuation aerosol inhaler (Breyna) calcium carbonate (Calcium 600) 600 mg PO BIDAC 12/04/24 12/04/24 Unknown Hi story fluticasone 250 mcg-salmeterol 50 1 inh inhalation BID 12/04/24 12/04/24 Unknown History mcg/dose blistr powdr for inhalation (Advair Diskus) furosemide 20 mg tablet 20 mg PO DAILY 12/04/24 12/04/24 Unknown History multivitamin with minerals-folic 1 tab PO DAILY 12/04/24 12/04/24 Unknown History acid 80 mcg chewable tablet (Centrum Adult 50 Plus) rivaroxaban 20 mg tablet (Xarelto) 20 mg DAILY 12/04/24 12/06/24 01/25/25 History losartan 100 mg tablet 100 mg DAILY 12/06/24 12/06/24 12/06/24 History terazosin 5 mg capsule 5 mg BEDTIME 12/06/24 12/06/24 12/06/24 History Exam Narrative Narrative: kEKG 10/2024 NSR @ 67, ? LAE Nuc stress 11/2024 nml, no areas of ischemia or infarction noted ECHO 11/2024 nml LV chamber size with mild concentric LVH EF 60-65% Grade 2 DD No regional WMA Moderately dilated LA with an atrial septal aneurysm that is highly mobile nml RA Nml RV size and function Mild aortic valve regurg with a centrally directed jet Mild to moderate with mean gradient 17-18 Moderate TR without stenosis, molderately elevated RV sys pressure. Ascending aorta just above upper limits of nml at 3.8cm No significant change from 09/2022 Airway Mallampati Class: II TM Dist: >3cm Neck ROM: Full Denture: Upper and Lower Assessment and Plan Assessment Anesthesia Assessment: Anesthesia Plan Discussed Final Anesthetic Review NPO: Yes ASA Class: III Final Preanesthetic Review: No Changes in Pt Med Stat, Meds/Allgs Chart Reviewed, Consent Obtained/Reviewed and Anes Risks/Benef Reviewed Patient Risk: Intermediate Procedure Risk: Low Anesthetic Plan Anesthetic Plan: TIVA Disposition: Standard PACU
[2025-01-29] VITALS (8 sets, daily range): BP systolic 119–175; BP diastolic 53–145; PULSE 58–62; RESP 17–18; TEMP 36.4–36.9; O2SAT 95–98
[2025-01-29] MEDS: Lactated Ringers 1,000 ML 100 ML IVCONT (11:24)
--- NOTE | 2025-01-29 12:09 | MHC.SHP ---
Pre-Procedural Eval Section A - 24 Hr Update-Section A only Date of Service: 01/29/25 The patient is an INPATIENT: No The patient has been examined within 24 hours of the surgical procedure. The History & Physical has been completed within 30 days and I have reviewed it.: Yes Section B - Complete if H&P > 30 days Chief Complaint: Other specified diseases of anus and rectum Allergies: Allergies Allergy/AdvReac Type Severity Reaction Status Date / Time prednisone AdvReac Severe mouth sores Verified 12/26/24 11:30 benzoin AdvReac Intermediate rash Verified 12/26/24 11:30 latex Allergy Intermediate Itching Uncoded 12/26/24 11:30 Plan I have reviewed the history and physical and performed a pertinent physical examination on my patient. No changes have occurred unless specified. Time Spent With Patient Time: Total time managing care of this patient today ____ minutes.
[2025-01-29] MEDS: cefoTEtan disodium 2 GM VIAL IVPUSH (12:35)
--- NOTE | 2025-01-29 12:56 | W.PM.OPN ---
Operative Note Operative Note Date of Service: 01/29/25 Narrative: Preop diagnosis: Tubulovillous polyp in the rectum Postop diagnosis: The same Procedure: Exam under anesthesia, transanal excision of tubulovillous polyp in the rectum Surgeon: Jorge L Arias MD [employer] Eligibility Assistant: NIDIA Ruano The patient was an 89 year old female who had a colonoscopy last month with Dr. Whitley because of passage of blood per rectum. She was noted to have a flat lesion in the rectum near the dentate line. This was wide as well under path report had shown a tubulovillous adenoma.She was therefore referred to me for transanal excision. She understood the technique of the planned procedure as well as the risks, benefits, and alternatives. She was brought to the operating room. She was placed in prone sanket-knife position under general anesthesia via endotracheal tube. The buttocks were retracted with wide tape laterally. The perianal area was prepped and draped usual sterile fashion. A surgical time-out was done. The patient received Cefotan 2 g IV preoperatively. I infiltrated the perianal area with lidocaine 1%. Examination of the anal verge revealed a small external hemorrhoid in the posterior midline. I inserted the Екатерина Dumont retractor and examined the anal canal circumferentially. I could see this polypoid mass in the posterior area of the distal rectum at the level of the dentate line and extending more proximally. This was about at least a 3.5 cm in dimension. The margins were difficult to discern There were no other obvious lesions seen on examination with the Dumont retractor in place. There was no fissure or ulceration. I applied a Bosch grasper on this polypoid mass. I used electrocautery to excise the polypoid mass with full-thickness of the mucosa and submucosa. This was sent as a specimen. Cauterized the margins in case there were residual non obvious lesions adjacent to the excision site I closed the incision with a running chromic 3-0 stitch with additional hemostatic [id number] sutures placed for oozing areas Once hemostasis was confirmed, the procedure was completed. I infiltrated the perianal area with Marcaine 0.5% for postop analgesia.
[2025-01-29] MEDS: Acetaminophen 325 MG TABLET 650 MG PO (13:11)
[2025-01-29] MEDS: Ketorolac Tromethamine 15 MG/ML VIAL IVPUSH (13:11)
[2025-01-29] MEDS: oxyCODONE HCl Immed Release 5 MG TABLET PO (13:13)
[2025-01-29] MEDS: ondansetron HCL 4 MG/2 ML VIAL IVPUSH (13:21)
== END 2025-01-29 14:31 | disposition home or self-care (01) ==
PROVIDERS: PCP Family Medicine; Visit Provider Surgery
PROC: (CPT 45172; principal; 2025-01-29 12:00)
DX: K62.89 Other specified diseases of anus and rectum (principal); D12.8 Benign neoplasm of rectum; K92.1 Melena; K64.4 Residual hemorrhoidal skin tags; K21.9 Gastro-esophageal reflux disease without esophagitis; Z87.19 Personal history of other diseases of the digestive system; I10 Essential (primary) hypertension; I48.91 Unspecified atrial fibrillation; J44.9 Chronic obstructive pulmonary disease, unspecified; J45.909 Unspecified asthma, uncomplicated; Z86.718 Personal history of other venous thrombosis and embolism; Z79.01 Long term (current) use of anticoagulants; Z91.040 Latex allergy status; Z88.8 Allergy status to other drugs, medicaments and biological substances; Z98.890 Other specified postprocedural states
CPT/HCPCS: 45172; 88305; J1100; J1885; J2003; J2405; J2704; J2795; J3010

== ENCOUNTER → 2025-01-29 09:52 | Outpatient (BNV) | payer MEDICARE, SELFPAY | PROVIDERS: PCP Family Medicine; Visit Provider Surgery | DX: D12.8 Benign neoplasm of rectum (principal) | CPT/HCPCS: 45172 ==

== ENCOUNTER 2025-02-05 22:17 | Inpatient (IN) | payer MEDICARE, SELFPAY ==
--- NOTE | ~2025-02-05 | CT_ITS ---
CLINICAL HISTORY: 4 29 rectal polypectomy by anus,low abd pain,bleed CT abdomen and pelvis with contrast Comparison: None Findings: Trace right pleural effusion. Moderate cardiomegaly. There is asymmetric elevation of the right hemidiaphragm. Dome of the liver is not included on this study. Right adrenal gland, spleen, pancreas and gallbladder are unremarkable. Fat containing left adrenal mass measuring 3 cm, likely a myelolipoma. Kidneys enhance symmetrically and there is no hydronephrosis. No bowel obstruction, pneumoperitoneum, or pneumatosis. There are extensive colonic diverticula, however no evidence of diverticulitis. No bowel wall thickening. Bilateral inguinal hernias containing small amounts of ascites. Trace ascites present. Pelvic contents unremarkable. Appendix not visualized. The bones are intact. IMPRESSION: No acute findings. Left adrenal myelolipoma incidentally noted. This document has been electronically signed by: Shailesh Morse MD on 02/06/2025 01:45:06
[2025-02-05 22:26] VITALS: BP 128/59; PULSE 72; RESP 16; TEMP 36.7; O2SAT 98; BMI 33.1
[2025-02-05 22:49] LABS: MANUAL DIFF FLAG NO
[2025-02-05 22:50] LABS: Basophils Percent Auto 0.4 % (0-2); Eosinophils Absolute Auto 0.1 X10*3/uL (0.0-0.4); Eosinophils Percent Auto 0.9 % (0-4); Hematocrit 28.4 % (37.0-47.0); Hemoglobin 9.7 g/dl (12.0-16.0); Imm Gran Abs Auto 0.06 X10*3/uL (0.00-0.03); Imm Gran Pct Auto 0.8 % (0.0-0.4); Lymphocytes Absolute Auto 0.9 X10*3/uL (1.2-4.9); Lymphocytes Percent Auto 11.9 % (20-40); Mean Corpuscular HGB Conc 34.2 g/dl (31.0-35.0); Mean Corpuscular Hemoglobin 32.1 pg (27.0-33.0); Mean Platelet Volume 9.3 fL (9.4-12.3); Monocytes Absolute Auto 0.6 X10*3/uL (0.1-1.2); Monocytes Percent Auto 7.9 % (2-11); Neutrophils Absolute Auto 5.9 x10*3/uL (2.0-8.3); Neutrophils Percent Auto 78.1 % (45-73); Platelet Count 210 X10*3/uL (160-400); Red Blood Count 3.02 X10*6/uL (4.20-5.50); Red Cell Distribution Width 13.7 % (11.0-16.0); White Blood Count 7.5 X10*3/uL (4.8-10.8)
[2025-02-05 22:58] LABS: Prothrombin Time 23.7 SEC (10.9-12.4)
[2025-02-05 23:05] LABS: Alanine Aminotransferase 27 U/L (0-31); Alkaline Phosphatase 62 U/L (39-117); Anion Gap 12 (12-20); Aspartate Amino Transferase 22 U/L (5-31); Bilirubin Total 0.3 mg/dL (0.0-1.0); Blood Urea Nitrogen 27 mg/dL (9-16); Carbon Dioxide 29 mmol/L (22-29); Chloride 102 mmol/L (96-108); Creatinine Clr Calc Pharmacy 54.4; Estimated Glomerular Filt Rate > 60; Glucose Random 104 mg/dL (60-115); Potassium 4.6 mmol/L (3.3-5.1); Sodium 138 mmol/L (135-145); Total Protein 6.9 g/dL (6.5-8.0)
[2025-02-05 23:54] VITALS: BP 154/58; PULSE 65; RESP 18; TEMP 36.8; O2SAT 98
[2025-02-06] VITALS (12 sets, daily range): BP systolic 110–172; BP diastolic 52–82; PULSE 53–71; RESP 16–20; TEMP 36.1–37.3; O2SAT 93–98
--- NOTE | 2025-02-06 00:08 | ED_ITS ---
HPI - General Adult General Chief complaint: General Medical Stated complaint: bleeding Time Seen by Provider: 02/06/25 00:08 History of Present Illness ED Provider: Javier FERNANDO narrative: The patient is an 89-year-old woman with a history of atrial fibrillation on rivaroxaban. She was recently found had colonoscopy to have a rectal mass by Dr. Whitley on December 06. The rectal mass was near the dentate line of the anus and was fairly large and so the patient was referred to Dr. Arias of General surgery. One week ago on January 29 she had an outpatient procedure under anesthesia in which she had excision of a tubulovillous polyp of the rectum near the dentate line of the anus. The patient had held her rivaroxaban for the procedure but has subsequently resumed it. The patient felt that she is recovering well from the procedure but this evening at around 05:00 started to have some blood per rectum and also some pain in the lower abdomen. She came to the emergency department. No fever, sweats, chills. Related Data Home Medications ?Medication ?Instructions ?Recorded ?Confirmed cholecalciferol (vitamin D3) 25 25 mcg PO BID 05/04/21 12/04/24 mcg (1,000 unit) capsule magnesium 250 mg tablet 250 mg PO DAILY 05/04/21 12/04/24 montelukast 10 mg tablet 10 mg PO BEDTIME 05/04/21 12/04/24 tramadol 50 mg tablet 50 mg PO DAILY PRN Pain 05/04/21 12/04/24 spironolactone 25 mg tablet 25 mg PO DAILY 07/31/21 12/06/24 albuterol sulfate 90 mcg/actuation 1 puff inhalation QID PRN 12/04/24 12/04/24 aerosol inhaler Shortness Of Breath Or Wheezing betamethasone dipropionate 0.05 % 1 appl topical BID PRN Skin 12/04/24 12/04/24 topical ointment Irritation budesonide-formoterol HFA 160 inhalation BID 12/04/24 mcg-4.5 mcg/actuation aerosol inhaler (Breyna) calcium carbonate (Calcium 600) 600 mg PO BIDAC 12/04/24 12/04/24 fluticasone 250 mcg-salmeterol 50 1 inh inhalation BID 12/04/24 12/04/24 mcg/dose blistr powdr for inhalation (Advair Diskus) furosemide 20 mg tablet 20 mg PO DAILY 12/04/24 12/04/24 multivitamin with minerals-folic 1 tab PO DAILY 12/04/24 12/04/24 acid 80 mcg chewable tablet (Centrum Adult 50 Plus) rivaroxaban 20 mg tablet (Xarelto) 20 mg DAILY 12/04/24 12/06/24 losartan 100 mg tablet 100 mg DAILY 12/06/24 12/06/24 terazosin 5 mg capsule 5 mg BEDTIME 12/06/24 12/06/24 xttsccxtpy-npligrnaihyep-ouyiyhcx 1 cap PO Q12H PRN Migraine Headache 02/06/25 02/06/25 50 mg-300 mg-40 mg capsule furosemide 20 mg tablet 20 mg PO DAILY PRN lower extremity 02/06/25 swelling gabapentin 300 mg capsule 300 mg PO BEDTIME 02/06/25 Previous Rx's ?Medication ?Instructions ?Recorded docusate sodium 100 mg capsule 100 mg PO BID #60 caps 01/29/25 (Colace) oxycodone-acetaminophen 5 mg-325 1 tab PO Q6H PRN pain #25 tabs 01/29/25 mg tablet Allergies Allergy/AdvReac Type Severity Reaction Status Date / Time prednisone AdvReac Severe mouth sores Verified 02/05/25 22:29 benzoin AdvReac Intermediate rash Verified 02/05/25 22:29 latex Allergy Intermediate Itching Uncoded 12/26/24 11:30 Review of Systems 2 Review of Systems: Yes all other systems are reviewed and are negative PMFSH Past Medical History Medical History Atrial septal aneurysm Chest pain Absence of lobe of lung Secondary hypercoagulable state Nonrheumatic aortic (valve) stenosis Dyspnea on exertion Diastolic heart failure Rectal mass Hammer toe Hx of lipoma Atrial fibrillation Asthma Hiatal hernia Left shoulder pain Headache, cervicogenic Osteoporosis 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 Osteoarthritis Sciatica Pneumonia Venous insufficiency Diverticulitis COPD (chronic obstructive pulmonary disease) Leg cramps Insomnia Sinusitis GERD (gastroesophageal reflux disease) Hypertension Surgical History History of surgery on arm History of surgery on wrist History of bilateral cataract extraction Hx of shoulder surgery History of left knee replacement History of carpal tunnel release History of lobectomy of lung Hx of foot surgery Hx of section History of esophagogastroduodenoscopy (EGD) H/O colonoscopy Status post revision of total knee replacement History of total knee replacement (TKR) H/O total hysterectomy H/O vein stripping Social History Social History Are you a primary vocational childcare teacher to a significant other at home: No Do you presently have visiting nurse or other home services: No Alcohol intake: current Alcohol intake frequency: holidays/special occasions only Patient Tobacco Use Status: Never used Tobacco Smoked in Last 30 Days: No Use of substances other than those prescribed or required for medical reasons: No Advance Directives: No Advance Directives Information Provided: Yes Do you have a plan to hurt others: No Plan Physical Exam ED Vital Signs: Vital Signs - 24 hr 02/05/25 22:26 02/05/25 23:54 02/06/25 03:50 Temperature 98.1 F 98.3 F 98.2 F Pulse Rate 72 65 64 Respiratory Rate 16 18 20 Blood Pressure 128/59 L 154/58 H 110/76 Pulse Oximetry 98 98 96 Oxygen Delivery Method Room Air Room Air Room Air 02/06/25 06:51 02/06/25 08:06 Temperature 98.4 F 97.9 F Pulse Rate 60 71 Respiratory Rate 18 18 Blood Pressure 142/52 H 163/61 H Pulse Oximetry 95 96 Oxygen Delivery Method Room Air Room Air BMI result Body Mass Index 33.1 Const Other: The patient is a frail elderly woman who was awake and alert. She is pleasant and cooperative. HENMT Other: Face is symmetrical, mucous membranes moist. Eyes Other: Pupils are round equal, conjunctivae clear, extraocular movements intact Neck Neck: Yes full ROM, Yes no lymphadenopathy and Yes no JVD Resp Effort & Inspection: normal respiratory effort Auscultation: clear to auscultation bilaterally Cardio Rate: regular rate Rhythm: regular rhythm Heart sounds: S1 normal heart sound present and S2 normal heart sound present GI Other: There is some mild lower abdominal tenderness, primarily in the right lower quadrant. Digital rectal exam revealed some bright red blood. Skin Other: Skin is pale and dry Neuro Other: The patient is awake and alert with a pleasant demeanor. Cranial nerves are grossly intact. She moves her extremities symmetrically. No focal deficits. Extrem Other: No peripheral edema Medications Administered Discontinued Medications Generic Name Dose Route Start Last Admin Trade Name Audrey PRN Reason Stop Dose Admin Tranexamic Acid 1,000 mg/ 60 mls @ 360 mls/hr 02/06/25 00:38 02/06/25 01:30 Sodium Chloride IV 02/06/25 00:47 Infused ONCE ONE Infusion Iohexol 85 ml 02/06/25 01:09 02/06/25 01:10 Iohexol 350 Mg/Ml 100 Ml Infus..Btl IV 02/06/25 01:10 85 ml ONCE ONE Administration Medical Decision Making Medical Decision Making [facility] Narrative: The patient is a very pleasant 89-year-old woman on rivaroxaban who had a rectal polypectomy 1 week ago. She now presents with bright red blood per rectum that started this evening. She is also complaining of some right lower abdominal pain. She does not look overtly toxic. Rectal exam reveals some bright red blood per rectum but not a copious amount. Her initial hemoglobin was 9.7. This was repeated a few hours later and it was 9.8. This morning it was repeated a 2nd time and it was 9.7. I consulted with Dr. Arias, the surgeon who cared for the patient last week. He came to the emergency room this morning to see the patient and will be admitting the patient for observation. Lab Data 02/06/25 06:06 02/05/25 22:44 Labs: Lab Results 02/05/25 02/06/25 02/06/25 Range/Units 22:44 00:48 06:06 WBC 7.5 7.7 7.4 (4.8-10.8) X10*3/uL RBC 3.02 L 3.04 L 2.99 L (4.20-5.50) X10*6/uL Hgb 9.7 L 9.8 L 9.7 L (12.0-16.0) g/dl Hct 28.4 L 28.5 L 28.0 L (37.0-47.0) % MCV 94.0 93.8 93.6 (80.0-98.0) fL MCH 32.1 32.2 32.4 (27.0-33.0) pg MCHC 34.2 34.4 34.6 (31.0-35.0) g/dl RDW 13.7 13.7 13.8 (11.0-16.0) % Plt Count 210 206 209 (160-400) X10*3/uL MPV 9.3 L 9.4 9.0 L (9.4-12.3) fL Immature Gran % (Auto) 0.8 H (0.0-0.4) % Neut % (Auto) 78.1 H (45-73) % Lymph % (Auto) 11.9 L (20-40) % [place] % (Auto) 7.9 (2-11) % Eos % (Auto) 0.9 (0-4) % Baso % (Auto) 0.4 (0-2) % Lymph # (Auto) 0.9 L (1.2-4.9) X10*3/uL [place] # (Auto) 0.6 (0.1-1.2) X10*3/uL Eos # (Auto) 0.1 (0.0-0.4) X10*3/uL Baso # (Auto) 0.0 (0.0-0.2) X10*3/uL Abs Immat Gran (auto) 0.06 H (0.00-0.03) X10*3/uL Absolute Neuts (auto) 5.9 (2.0-8.3) x10*3/uL Absolute Nucleated RBC 0.000 0.000 0.000 (0.0-0.012) X10*3/uL Nucleated RBC % (auto) 0.0 0.0 0.0 (0.0-0.2) /100WBC PT 23.7 H (10.9-12.4) SEC INR 2.0 H (0.9-1.1) Sodium 138 (135-145) mmol/L Potassium 4.6 (3.3-5.1) mmol/L Chloride 102 (96-108) mmol/L Carbon Dioxide 29 (22-29) mmol/L Anion Gap 12 (12-20) BUN 27 H (9-16) mg/dL Creatinine 0.64 (0.5-1.4) mg/dL Estim Creat Clear Calc 54.4 Estimated GFR > 60 Random Glucose 104 (60-115) mg/dL Calcium 9.0 (8.4-10.2) mg/dL Total Bilirubin 0.3 (0.0-1.0) mg/dL AST 22 (5-31) U/L ALT 27 (0-31) U/L Alkaline Phosphatase 62 (39-117) U/L Total Protein 6.9 (6.5-8.0) g/dL Albumin 4.0 (3.5-5.0) g/dL Blood Type A Positive Antibody Screen NEGATIVE Discharge Plan Discharge Clinical Impression: Bleeding per rectum Patient Disposition: Admitted As Inpatient Print Language: Prydeinig
[2025-02-06 00:57] LABS: Hematocrit 28.5 % (37.0-47.0); Hemoglobin 9.8 g/dl (12.0-16.0); Mean Corpuscular HGB Conc 34.4 g/dl (31.0-35.0); Mean Corpuscular Hemoglobin 32.2 pg (27.0-33.0); Mean Corpuscular Volume 93.8 fL (80.0-98.0); Mean Platelet Volume 9.4 fL (9.4-12.3); Platelet Count 206 X10*3/uL (160-400); Red Blood Count 3.04 X10*6/uL (4.20-5.50); Red Cell Distribution Width 13.7 % (11.0-16.0); White Blood Count 7.7 X10*3/uL (4.8-10.8)
[2025-02-06] MEDS: iohexoL 350 MG/ML 100 ML INFUS..BTL 85 ML IV (01:10)
[2025-02-06] MEDS: Tranexamic Acid 1,000 MG in 0.9 % Sodium Chloride 50 ML 360 MG IV (01:12)
--- NOTE | 2025-02-06 03:45 | PC.NURSE ---
pt using commode at bedside, blood in commode on previous bathroom assists, however this time there were larger clots. MD Lee made aware.
[2025-02-06 06:11] LABS: Hemoglobin 9.7 g/dl (12.0-16.0); Mean Corpuscular HGB Conc 34.6 g/dl (31.0-35.0); Mean Corpuscular Hemoglobin 32.4 pg (27.0-33.0); Mean Corpuscular Volume 93.6 fL (80.0-98.0); Platelet Count 209 X10*3/uL (160-400); Red Blood Count 2.99 X10*6/uL (4.20-5.50); Red Cell Distribution Width 13.8 % (11.0-16.0); White Blood Count 7.4 X10*3/uL (4.8-10.8)
--- NOTE | 2025-02-06 08:04 | PM.HPGS ---
History of Present Illness History of Present Illness Date of Service: 02/08/25 Chief complaint: blood per rectum, status post transanal excision o Narrative: Natalia Beverly is an 89-year-old female here in the ER for passage of blood clots per rectum. She had undergone transanal excision of the large distal rectal flat polyp last 01/29/2025. She had been on anticoagulation with Eliquis which was on hold at that time. This was restarted on 02/01/2025. She says she had been doing well since that time. However, yesterday, around 05:00 in the afternoon, she noticed passage of blood clots per rectum. She says that happen again that around 09:00 last night enlarged amounts so she went to the ER. Her last episode was about 03:00 this morning and this was much less in volume. She had undergone a colonoscopy with Dr. Whitley last 12/04/2024 because of this is of blood per rectum and that was when the rectal polyp near the dentate line had been found. She describes occasional bleeding prior to the polypectomy. She says that this started around November of 2024. She says that this would be bright blood per rectum. She is on Eliquis and has been on this for many years because of atrial fibrillation. She also has a history of a DVT and a PE more than 50 years ago. Currently she is comfortable although states that she does have asthma and gets short of breath periodically. Again, she states that the last time she would notice blood was at 03:00 in the morning and this has only seen on wiping. Review of Systems Constitutional: Constitutional: Denies chills and Denies fever(s) Cardiovascular: Cardiovascular: Denies chest pain, Reports dyspnea (Has known asthma) and Reports dyspnea on exertion Respiratory: Respiratory: Denies cough, Reports dyspnea (Has known asthma) and Reports dyspnea on exertion Gastrointestinal: Gastrointestinal: Denies change in bowel habits Comments: Blood clots per rectum Genitourinary: Genitourinary: Denies hematuria Musculoskeletal: Musculoskeletal: Denies back pain and Denies limited range of motion Neurologic: Denies focal weakness and Denies convulsions Psychiatric: Psychiatric: Denies depression and Denies mood swings PMFSH Past Medical History Medical History Atrial septal aneurysm Chest pain Absence of lobe of lung Secondary hypercoagulable state Nonrheumatic aortic (valve) stenosis Dyspnea on exertion Diastolic heart failure Rectal mass Hammer toe Hx of lipoma Atrial fibrillation Asthma Hiatal hernia Left shoulder pain Headache, cervicogenic Osteoporosis 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 Osteoarthritis Sciatica Pneumonia Venous insufficiency Diverticulitis COPD (chronic obstructive pulmonary disease) Leg cramps Insomnia Sinusitis GERD (gastroesophageal reflux disease) Hypertension Surgical History Surgical History History of surgery on arm History of surgery on wrist History of bilateral cataract extraction Hx of shoulder surgery History of left knee replacement History of carpal tunnel release History of lobectomy of lung Hx of foot surgery Hx of section History of esophagogastroduodenoscopy (EGD) H/O colonoscopy Status post revision of total knee replacement History of total knee replacement (TKR) H/O total hysterectomy H/O vein stripping Social History Social History Household Members: Spouse Housing: House Are you a primary intensive care ambulance paramedic to a significant other at home: No Do you presently have visiting nurse or other home services: No Alcohol intake: current Alcohol intake frequency: holidays/special occasions only Patient Tobacco Use Status: Never used Tobacco service: No Meds Allergies Allergy/AdvReac Type Severity Reaction Status Date / Time latex Allergy Intermediate Itching Verified 02/06/25 11:18 prednisone AdvReac Severe mouth sores Verified 02/05/25 22:29 benzoin AdvReac Intermediate rash Verified 02/05/25 22:29 Home Medications ?Medication ?Instructions ?Recorded ?Confirmed ?Last Taken ?Type cholecalciferol (vitamin D3) 25 25 mcg PO DAILY 05/04/21 02/06/25 02/05/25 History mcg (1,000 unit) capsule magnesium 250 mg tablet 250 mg PO DAILY 05/04/21 02/06/25 02/05/25 History montelukast 10 mg tablet 10 mg PO BEDTIME 05/04/21 02/06/25 02/05/25 History tramadol 50 mg tablet 50 mg PO DAILY PRN Pain 05/04/21 02/06/25 Unknown History spironolactone 25 mg tablet 25 mg PO DAILY 07/31/21 02/06/25 02/05/25 History albuterol sulfate 90 mcg/actuation 1 puff inhalation QID PRN 12/04/24 02/06/25 01/29/25 08:00 History aerosol inhaler Shortness Of Breath Or Wheezing betamethasone dipropionate 0.05 % 1 appl topical BID PRN Skin 12/04/24 02/06/25 Unknown History topical ointment Irritation budesonide-formoterol HFA 160 2 inh inhalation BID 12/04/24 02/06/25 02/05/25 History mcg-4.5 mcg/actuation aerosol inhaler (Breyna) calcium carbonate (Calcium 600) 1,200 mg PO DAILY 12/04/24 02/06/25 02/05/25 History furosemide 20 mg tablet 20 mg PO DAILY 12/04/24 02/06/25 02/05/25 History multivitamin with minerals-folic 1 tab PO DAILY 12/04/24 02/06/25 02/05/25 History acid 80 mcg chewable tablet (Centrum Adult 50 Plus) rivaroxaban 20 mg tablet (Xarelto) 20 mg DAILY 12/04/24 02/06/25 02/05/25 History losartan 100 mg tablet 100 mg DAILY 12/06/24 02/06/25 02/05/25 History terazosin 5 mg capsule 5 mg BEDTIME 12/06/24 02/06/25 02/05/25 History qdhyvbaesw-bplytdwpuhlje-jfgpalap 1 cap PO Q12H PRN Migraine Headache 02/06/25 02/06/25 Unknown History 50 mg-300 mg-40 mg capsule furosemide 20 mg tablet 20 mg PO DAILY PRN lower extremity 02/06/25 02/06/25 Unknown History swelling gabapentin 300 mg capsule 300 mg PO BEDTIME 02/06/25 02/06/25 02/05/25 History ipratropium 0.5 mg-albuterol 3 mg 3 ml inhalation QID 02/06/25 02/06/25 02/05/25 History (2.5 mg base)/3 mL nebulization soln Physical Exam Vital Signs: Vital Signs: Last Vital Signs Temp 98.4 F 02/06/25 06:51 Pulse 60 02/06/25 06:51 Resp 18 02/06/25 06:51 BP 142/52 H 02/06/25 06:51 Pulse Ox 95 02/06/25 06:51 O2 Del Method Room Air 02/06/25 06:51 BMI result Body Mass Index 33.1 Const: Other: Mildly short of breath and states that she is due for her asthma inhalers General: comfortable and no acute distress Orientation/consciousness: patient oriented x3 Neck: Neck: Yes no lymphadenopathy Resp: Other: Mildly short of breath Auscultation: clear to auscultation bilaterally Cardio: Rhythm: regular rhythm GI: Other: Rectal exam shows no blood in the anal opening, no induration, no redness; digital exam deferred Palpation (GI): Soft to palpation, nontender and no guarding Neuro: General: patient oriented x3 Results Results Labs: Short CBC 02/05/25 02/06/25 02/06/25 Range/Units 22:44 00:48 06:06 WBC 7.5 7.7 7.4 (4.8-10.8) X10*3/uL Hgb 9.7 L 9.8 L 9.7 L (12.0-16.0) g/dl Hct 28.4 L 28.5 L 28.0 L (37.0-47.0) % Plt Count 210 206 209 (160-400) X10*3/uL BMP 02/05/25 22:44 Sodium 138 Potassium 4.6 Chloride 102 Carbon Dioxide 29 BUN 27 H Creatinine 0.64 Calcium 9.0 Liver Function 02/05/25 Range/Units 22:44 Total Bilirubin 0.3 (0.0-1.0) mg/dL AST 22 (5-31) U/L ALT 27 (0-31) U/L Alkaline Phosphatase 62 (39-117) U/L Albumin 4.0 (3.5-5.0) g/dL Assessment and Plan (1) Bleeding per rectum: Status: Acute 89-year-old female who had passed large amounts of clots per rectum last night. This seems to have slowed down. She did have a transanal excision of a flat rectal polyp last visit 2024 and is currently on anticoagulation Her bleeding is likely from her surgical site with anticoagulation. She does have diverticulosis on colonoscopy so this may be a differential as well We will hold her anticoagulation for now. I will consult the hospitalist service She looks well overall. Her H&H had been stable last night We will hold off on NSAIDs and subQ heparin. I have updated her daughter by phone. Quality Stroke Does the patient have a stroke diagnosis?: No VTE Prior VTE?: No VTE Risk Level:: Medical - moderate - high VTE Device Contraindication: N/A - Device Ordered VTE Drug Contraindication: Treatment Not Indicated Procedures Date of Service Date of Service: 02/08/25
--- NOTE | 2025-02-06 09:48 | PHA.MEDREC ---
Addendum entered by Krys Ryder RPh 02/06/25 10:14: Reviewed by [facility]. Original Note: Pharmacy Consult ? Medication Reconciliation Pharmacy has completed the medication reconciliation. Spoke to patient to confirm med list. Patient had a list of medications with her. Utilized claims and patients list to confirm med rec.
[2025-02-06] MEDS: Acetaminophen 325 MG TABLET 650 MG PO (12:41)
--- NOTE | 2025-02-06 15:02 | PM.EVENT ---
Event Note Date of Service: 02/06/25 Event Note: Seen on afternoon rounds She says she is comfortable She does he had she had 1 episode of passage of clots per rectum at around 11:00 this morning She looks well overall Stable vital signs Abdomen is soft Tolerating diet Follow-up CBC for tomorrow Hold anticoagulation, hold heparin Appreciate hospitalist input Daughter at bedside Time Spent With Patient Time: Total time managing care of this patient today ____ minutes.
--- NOTE | 2025-02-06 15:22 | P.CONHOSP_ITS ---
History of Present Illness Data of Consult Service Date: 02/06/25 Primary Care Provider: Beck Reyna MD [facility] Reason for consult: Medical management Pt is an 89-year-old female with a PMH significant for hx of DVT/PE on Xarelto, HTN, migraines, arthritis, and chronic lower extremity edema who presented to the ED for passing blood clots per rectum. Pt was admitted to the hospital under general surgery services with hospitalist consult for medical management. Pt apparently underwent transanal excision of large distal rectal flat polyp on 01/29/[address] Arias. Patient's Xarelto was held prior to surgery and resumed on 02/01/2025 with last dose yesterday. pt reports she 1st noticed blood in her stool at 17:00 yesterday evening which increased by 21:00. pt reports she had so much blood in her stool with a very large amount of dark clots. Prior to polypectomy pt had occasional small amounts of BRBPR mostly noticeable on toilet paper with wiping. Overall pt states feels comfortable, though complains of mild right-sided abdominal pain wrapping around to her back. Last episode of hematochezia was at 04:00 this afternoon. Denies lightheadedness or dizziness. No significant fatigue. Denies shortness or breath or difficulty breathing. No chest pain/ pressure, palpitations. 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 Osteoarthritis Sciatica Pneumonia Venous insufficiency Diverticulitis COPD (chronic obstructive pulmonary disease) Leg cramps Insomnia Sinusitis GERD (gastroesophageal reflux disease) Hypertension Surgical History History of surgery on arm History of surgery on wrist History of bilateral cataract extraction Hx of shoulder surgery History of left knee replacement History of carpal tunnel release History of lobectomy of lung Hx of foot surgery Hx of section History of esophagogastroduodenoscopy (EGD) H/O colonoscopy Status post revision of total knee replacement History of total knee replacement (TKR) H/O total hysterectomy H/O vein stripping Social History Household Members: Spouse Housing: House Are you a primary resident care director to a significant other at home: No Do you presently have visiting nurse or other home services: No Alcohol intake: current Alcohol intake frequency: holidays/special occasions only Patient Tobacco Use Status: Never used Tobacco Smoked in Last 30 Days: No Use of substances other than those prescribed or required for medical reasons: No Currently Displaying Signs/Symptoms of Drug Intoxication Withdrawal: No Have you been hit, kicked, punched, or otherwise hurt by someone within the past year? If so, by whom?: No Do you feel safe in your current relationship?: Yes Is there a partner from a previous relationship who is making you feel unsafe now?: No Are you made to feel afraid or neglected: No Advance Directives: No Advance Directives Information Provided: Yes Do you have a plan to hurt others: No Plan Recently lost weight without trying: No Nutrition Risks: No Nutritional Risk Patient : No : No Poor oral hygiene: No Meds Allergies Allergy/AdvReac Type Severity Reaction Status Date / Time latex Allergy Intermediate Itching Verified 02/06/25 11:18 prednisone AdvReac Severe mouth sores Verified 02/05/25 22:29 benzoin AdvReac Intermediate rash Verified 02/05/25 22:29 Active Medications: Current Medications Acetaminophen (Acetaminophen 325 Mg Tablet) 650 mg PO Q6H PRN PRN Reason: Pain, Mild 1-3,fever,headache Last Admin: 02/06/25 12:41 Dose: 650 mg Acetaminophen/Butalbital/Caffeine (Butalb/Acetamin/Caff 50/325/40 Tablet) 1 tab PO Q12H PRN PRN Reason: Migraine Headache Albuterol Sulfate (Albuterol Sulfate 90 Mcg 8 Gm Inhaler) 1 puff INHALE QID PRN PRN Reason: Shortness Of Breath Or Wheezing Albuterol/Ipratropium (Albuterol/Iprat 2.5/0.5mg 3 Ml Ampul.Neb) 3 ml INHALE QID [facility] Calcium Carbonate (Calcium Carbonate 750 Mg Tab.Chew) 750 mg PO Q4H PRN PRN Reason: Heartburn Docusate Sodium (Docusate Sodium 100 Mg Capsule) 100 mg PO BID [facility] Furosemide (Furosemide 20 Mg Tablet) 20 mg PO DAILY PRN; Protocol PRN Reason: lower extremity swelling Furosemide (Furosemide 20 Mg Tablet) 20 mg PO DAILY [facility]; Protocol Gabapentin (Gabapentin 300 Mg Capsule) 300 mg PO BEDTIME [facility] Losartan Potassium (Losartan Potassium 50 Mg Tablet) 100 mg PO DAILY [facility]; Protocol Melatonin (Melatonin 3 Mg Tablet) 6 mg PO BEDTIME PRN PRN Reason: Insomnia Montelukast Sodium (Montelukast Sodium 10 Mg Tablet) 10 mg PO BEDTIME [facility] Multivitamins/Vitamin C (Multivitamin Tablet) 1 tab PO DAILY [facility] Non-Formulary Medication (Betamethasone Dipropionate) 1 appl TOPICAL BID PRN PRN Reason: Skin Irritation Non-Formulary Medication (Budesonide-Formoterol [Breyna]) 2 inhalation INHALE BID [facility] Non-Formulary Medication (Calcium Carbonate [Calcium 600]) 1,200 mg PO DAILY [facility] Non-Formulary Medication (Magnesium) 250 mg PO DAILY [facility] Sodium Chloride (0.9 % Sodium Chloride Flush 3 Ml Syringe) [facility] Spironolactone (Spironolactone 25 Mg Tablet) 25 mg PO DAILY [facility]; Protocol Vitamin D (Cholecalciferol (Vitamin D3) 25 Mcg Tablet) 25 mcg PO DAILY [facility] Home Medications ?Medication ?Instructions ?Recorded ?Confirmed ?Last Taken ?Type cholecalciferol (vitamin D3) 25 25 mcg PO DAILY 05/04/21 02/06/25 02/05/25 History mcg (1,000 unit) capsule magnesium 250 mg tablet 250 mg PO DAILY 05/04/21 02/06/25 02/05/25 History montelukast 10 mg tablet 10 mg PO BEDTIME 05/04/21 02/06/25 02/05/25 History tramadol 50 mg tablet 50 mg PO DAILY PRN Pain 05/04/21 02/06/25 Unknown History spironolactone 25 mg tablet 25 mg PO DAILY 07/31/21 02/06/25 02/05/25 History albuterol sulfate 90 mcg/actuation 1 puff inhalation QID PRN 12/04/24 02/06/25 01/29/25 08:00 History aerosol inhaler Shortness Of Breath Or Wheezing betamethasone dipropionate 0.05 % 1 appl topical BID PRN Skin 12/04/24 02/06/25 Unknown History topical ointment Irritation budesonide-formoterol HFA 160 2 inh inhalation BID 12/04/24 02/06/25 02/05/25 History mcg-4.5 mcg/actuation aerosol inhaler (Breyna) calcium carbonate (Calcium 600) 1,200 mg PO DAILY 12/04/24 02/06/25 02/05/25 History furosemide 20 mg tablet 20 mg PO DAILY 12/04/24 02/06/25 02/05/25 History multivitamin with minerals-folic 1 tab PO DAILY 12/04/24 02/06/25 02/05/25 History acid 80 mcg chewable tablet (Centrum Adult 50 Plus) rivaroxaban 20 mg tablet (Xarelto) 20 mg DAILY 12/04/24 02/06/25 02/05/25 History losartan 100 mg tablet 100 mg DAILY 12/06/24 02/06/25 02/05/25 History terazosin 5 mg capsule 5 mg BEDTIME 12/06/24 02/06/25 02/05/25 History [id number]-ojvqiqmraokrf-hlrgzcsd 1 cap PO Q12H PRN Migraine Headache 02/06/25 02/06/25 Unknown History 50 mg-300 mg-40 mg capsule furosemide 20 mg tablet 20 mg PO DAILY PRN lower extremity 02/06/25 02/06/25 Unknown History swelling gabapentin 300 mg capsule 300 mg PO BEDTIME 02/06/25 02/06/25 02/05/25 History ipratropium 0.5 mg-albuterol 3 mg 3 ml inhalation QID 02/06/25 02/06/25 02/05/25 History (2.5 mg base)/3 mL nebulization soln Physical Exam 2 Vital Signs and Narrative: Vital Signs: Last Vital Signs Temp 97.0 F 02/06/25 15:16 Pulse 53 02/06/25 15:16 Resp 16 02/06/25 15:16 BP 158/68 H 02/06/25 15:16 Pulse Ox 95 02/06/25 15:16 O2 Del Method Room Air 02/06/25 15:16 BMI result Body Mass Index 33.1 General: AOx3, no acute distress Resp: CTA bilaterally CVS: S1, S2, RRR, +murmur GI: +BS, no distention, RLQ tenderness Skin: Warm, dry Neuro: Cranial nerves II-XII grossly intact bilaterally. Motor grossly intact bilaterally Extremities: No edema Psych: Appropriate affect Results Labs 02/06/25 06:06 02/05/25 22:44 Labs: Laboratory Results - last 24 hr 02/05/25 02/06/25 02/06/25 22:44 00:48 06:06 MCV 94.0 93.8 93.6 MCH 32.1 32.2 32.4 MCHC 34.2 34.4 34.6 RDW 13.7 13.7 13.8 Plt Count 210 206 209 MPV 9.3 L 9.4 9.0 L Immature Gran % (Auto) 0.8 H Neut % (Auto) 78.1 H Lymph % (Auto) 11.9 L [place] % (Auto) 7.9 Eos % (Auto) 0.9 Baso % (Auto) 0.4 Lymph # (Auto) 0.9 L [place] # (Auto) 0.6 Eos # (Auto) 0.1 Baso # (Auto) 0.0 Abs Immat Gran (auto) 0.06 H Absolute Neuts (auto) 5.9 Absolute Nucleated RBC 0.000 0.000 0.000 Nucleated RBC % (auto) 0.0 0.0 0.0 PT 23.7 H INR 2.0 H Anion Gap 12 Estim Creat Clear Calc 54.4 Estimated GFR > 60 Random Glucose 104 Calcium 9.0 Total Bilirubin 0.3 AST 22 ALT 27 Alkaline Phosphatase 62 Total Protein 6.9 Albumin 4.0 Blood Type A Positive Antibody Screen NEGATIVE Assessment and Plan (1) Bleeding per rectum: Status: Acute Plan Pt is an 89-year-old female with a PMH significant for hx of DVT/PE of Xarelto, HTN, migraines, arthritis, asthma, chronic lower extremity edema who presented to the ED for passing blood clots per rectum. Pt was admitted to the hospital under general surgery services with hospitalist consult for medical management. Hematochezia Reports multiple episodes of blood per rectum with clots, last at 1600 H&H stable while in the hospital Plan as per general surgery Hx of DVT/PE Hold Xarelto due to concern for GIB Asthma Not in acute exacerbation Chronic lower extremity edema/lymphedema Continue home furosemide, spironolactone Migraines Continue Fiorcet HTN Continue losartan Thank you for allowing us to participate in the care of this pt. We will continue to follow along with you.
[2025-02-06] MEDS: Albuterol/Iprat 2.5/0.5MG 3 ML AMPUL.NEB INHALE ×2 (15:59→20:47)
[2025-02-06] MEDS: 0.9 % Sodium Chloride Flush 3 ML SYRINGE IVFLUSH ×2 (17:41→20:10)
[2025-02-06] MEDS: Gabapentin 300 MG CAPSULE PO (20:07)
[2025-02-06] MEDS: Docusate Sodium 100 MG CAPSULE PO (20:07)
[2025-02-06] MEDS: Montelukast Sodium 10 MG TABLET PO (20:07)
[2025-02-07] VITALS (11 sets, daily range): BP systolic 138–174; BP diastolic 62–80; PULSE 51–94; RESP 16–18; TEMP 36.3–36.8; O2SAT 94–97
--- NOTE | 2025-02-07 | ECG_ITS ---
Test Reason : ?rhythm Blood Pressure : */* mmHG Vent. Rate : 67 BPM Atrial Rate : 67 BPM P-R Int : 150 ms QRS Dur : 94 ms QT Int : 396 ms P-R-T Axes : 33 -36 44 degrees QTcB Int : 418 ms Normal sinus rhythm Left axis deviation Abnormal ECG No previous ECGs available Referred By: Eyad Balderas Electronically Signed By: CHOCO KAUFMAN
[2025-02-07] MEDS: Albuterol/Iprat 2.5/0.5MG 3 ML AMPUL.NEB INHALE ×3 (07:48→19:35)
--- NOTE | 2025-02-07 07:57 | P.PNGS_ITS ---
Subjective Subjective Date of Service: 02/07/25 Interval history: No bleeding overnight Says her last episode was small amounts of blood clots at around 5 BMs yesterday Feels well Denies abdominal pain Physical Exam 2 Vital Signs: Vital Signs: Last Vital Signs Temp 97.6 F 02/07/25 07:14 Pulse 57 02/07/25 07:48 Resp 16 02/07/25 07:48 BP 174/72 H 02/07/25 07:14 Pulse Ox 95 02/07/25 07:14 O2 Del Method Room Air 02/07/25 07:14 BMI result Body Mass Index 33.1 Const: General: comfortable and no acute distress Resp: Effort & Inspection: normal respiratory effort Cardio: Rate: regular rate GI: Palpation (GI): Soft to palpation, not firm, nontender and no guarding Objective Data Active Medications Acetaminophen (Acetaminophen 325 Mg Tablet) 650 mg PO Q6H PRN PRN Reason: Pain, Mild 1-3,fever,headache Last Admin: 02/06/25 12:41 Dose: 650 mg Documented By: FABIOLA Acetaminophen/Butalbital/Caffeine (Butalb/Acetamin/Caff 50/325/40 Tablet) 1 tab PO Q12H PRN PRN Reason: Migraine Headache Albuterol Sulfate (Albuterol Sulfate 90 Mcg 8 Gm Inhaler) 1 puff INHALE QID PRN PRN Reason: Shortness Of Breath Or Wheezing Albuterol/Ipratropium (Albuterol/Iprat 2.5/0.5mg 3 Ml Ampul.Neb) 3 ml INHALE QID [facility] Last Admin: 02/07/25 07:48 Dose: 3 ml Documented By: JULITO Calcium Carbonate (Calcium Carbonate 750 Mg Tab.Chew) 750 mg PO Q4H PRN PRN Reason: Heartburn Docusate Sodium (Docusate Sodium 100 Mg Capsule) 100 mg PO BID [facility] Last Admin: 02/06/25 20:07 Dose: 100 mg Documented By: CODY Fluticasone/Vilanterol (Fluticasone/Vilanterol 200/25 Blst.W.Dev) 1 puff INHALE RDAILY [facility] Furosemide (Furosemide 20 Mg Tablet) 20 mg PO DAILY PRN; Protocol PRN Reason: lower extremity swelling Furosemide (Furosemide 20 Mg Tablet) 20 mg PO DAILY [facility]; Protocol Gabapentin (Gabapentin 300 Mg Capsule) 300 mg PO BEDTIME [facility] Last Admin: 02/06/25 20:07 Dose: 300 mg Documented By: CODY Losartan Potassium (Losartan Potassium 50 Mg Tablet) 100 mg PO DAILY [facility]; Protocol Magnesium Oxide (Magnesium Oxide 400 Mg Tablet) 400 mg PO DAILY [facility] Melatonin (Melatonin 3 Mg Tablet) 6 mg PO BEDTIME PRN PRN Reason: Insomnia Montelukast Sodium (Montelukast Sodium 10 Mg Tablet) 10 mg PO BEDTIME [facility] Last Admin: 02/06/25 20:07 Dose: 10 mg Documented By: CODY Multivitamins/Vitamin C (Multivitamin Tablet) 1 tab PO DAILY [facility] Sodium Chloride (0.9 % Sodium Chloride Flush 3 Ml Syringe) 3 ml IVFLUSH QSHIFT [facility] Last Admin: 02/06/25 20:10 Dose: 3 ml Documented By: CODY Spironolactone (Spironolactone 25 Mg Tablet) 25 mg PO DAILY [facility]; Protocol Tramadol HCl (Tramadol Hcl 50 Mg Tablet) 50 mg PO DAILY PRN PRN Reason: Pain, Moderate(Pain Scale 4-6) Triamcinolone Acetonide (Triamcinolone Acet 0.5 % Oint 15 Gm Tube) 1 appl TOPICAL BID PRN PRN Reason: Skin Irritation Vitamin D (Cholecalciferol (Vitamin D3) 25 Mcg Tablet) 25 mcg PO DAILY [facility] Labs 02/06/25 06:06 02/05/25 22:44 Procedures Date of Service Date of Service: 02/07/25 Progress Note: A&P Assessment and plan (1) Bleeding per rectum: Status: Acute Assessment and Plan: Status post transanal excision of rectal polyp Xarelto on hold No further bleeding overnight Follow up CBC pending She looks well overall On regular diet Appreciate hospitalist input Time Spent With Patient Time: Total time managing care of this patient today ____ minutes. Quality Stroke Does the patient have a stroke diagnosis?: No VTE Prior VTE?: No VTE Risk Level:: Medical - moderate - high VTE Device Contraindication: N/A - Device Ordered VTE Drug Contraindication: Treatment Not Indicated
[2025-02-07] MEDS: Multivitamin TABLET 1 TAB PO (08:33)
[2025-02-07] MEDS: Spironolactone 25 MG TABLET PO (08:33)
[2025-02-07] MEDS: Magnesium Oxide 400 MG TABLET PO (08:34)
[2025-02-07] MEDS: Losartan Potassium 50 MG TABLET 100 MG PO (08:34)
[2025-02-07] MEDS: Cholecalciferol (Vitamin D3) 25 MCG TABLET PO (08:34)
[2025-02-07] MEDS: Docusate Sodium 100 MG CAPSULE PO ×2 (08:34→21:13)
[2025-02-07 08:37] LABS: Hematocrit 28.4 % (37.0-47.0); Hemoglobin 9.8 g/dl (12.0-16.0); Mean Corpuscular HGB Conc 34.5 g/dl (31.0-35.0); Mean Corpuscular Hemoglobin 32.6 pg (27.0-33.0); Mean Corpuscular Volume 94.4 fL (80.0-98.0); Mean Platelet Volume 8.7 fL (9.4-12.3); Platelet Count 229 X10*3/uL (160-400); Red Blood Count 3.01 X10*6/uL (4.20-5.50); Red Cell Distribution Width 13.9 % (11.0-16.0); White Blood Count 5.9 X10*3/uL (4.8-10.8)
[2025-02-07] MEDS: Furosemide 20 MG TABLET PO (08:38)
[2025-02-07] MEDS: Acetaminophen 325 MG TABLET 650 MG PO (08:47)
[2025-02-07] MEDS: 0.9 % Sodium Chloride Flush 3 ML SYRINGE IVFLUSH ×3 (08:49→21:15)
--- NOTE | 2025-02-07 08:58 | P.PNIM_ITS ---
Subjective Subjective Date of Service: 02/07/25 Interval History: No acute events overnight Pt reports feeling much better than yesterday No bleeding overnight Last reported episode of bleeding per rectum at around 16:00 yesterday Reports mild headache, not a migraine No nausea, vomiting, or abdominal pain Denies SOB or difficulty breathing No lightheadedness or dizziness Denies chest pain or palpitations Review of Systems Review of Systems: Yes all other systems are reviewed and are negative Physical Exam 2 Vital Signs: Vital Signs: Last Vital Signs Temp 97.6 F 02/07/25 07:14 Pulse 94 02/07/25 08:33 Resp 16 02/07/25 07:48 BP 141/63 H 02/07/25 08:33 Pulse Ox 95 02/07/25 07:14 O2 Del Method Room Air 02/07/25 07:14 BMI result Body Mass Index 33.1 General: AOx3, no acute distress Resp: CTA bilaterally CVS: Irregularly irregular rhythm GI: +BS, NT, no distention Skin: Warm, dry Neuro: Cranial nerves II-XII grossly intact bilaterally. Motor grossly intact bilaterally Extremities: 1+ pitting lower leg edema bilaterally with chronic venous stasis dermatitis changes Psych: Appropriate affect Objective Data Active Medications Acetaminophen (Acetaminophen 325 Mg Tablet) 650 mg PO Q6H PRN PRN Reason: Pain, Mild 1-3,fever,headache Last Admin: 02/07/25 08:47 Dose: 650 mg Documented By: DENISE Acetaminophen/Butalbital/Caffeine (Butalb/Acetamin/Caff 50/325/40 Tablet) 1 tab PO Q12H PRN PRN Reason: Migraine Headache Albuterol Sulfate (Albuterol Sulfate 90 Mcg 8 Gm Inhaler) 1 puff INHALE QID PRN PRN Reason: Shortness Of Breath Or Wheezing Albuterol/Ipratropium (Albuterol/Iprat 2.5/0.5mg 3 Ml Ampul.Neb) 3 ml INHALE QID [facility] Last Admin: 02/07/25 07:48 Dose: 3 ml Documented By: JULITO Calcium Carbonate (Calcium Carbonate 750 Mg Tab.Chew) 750 mg PO Q4H PRN PRN Reason: Heartburn Docusate Sodium (Docusate Sodium 100 Mg Capsule) 100 mg PO BID [facility] Last Admin: 02/07/25 08:34 Dose: 100 mg Documented By: DENISE Fluticasone/Vilanterol (Fluticasone/Vilanterol 200/25 Blst.W.Dev) 1 puff INHALE RDAILY [facility] Furosemide (Furosemide 20 Mg Tablet) 20 mg PO DAILY PRN; Protocol PRN Reason: lower extremity swelling Furosemide (Furosemide 20 Mg Tablet) 20 mg PO DAILY [facility]; Protocol Last Admin: 02/07/25 08:38 Dose: 20 mg Documented By: DENISE Gabapentin (Gabapentin 300 Mg Capsule) 300 mg PO BEDTIME [facility] Last Admin: 02/06/25 20:07 Dose: 300 mg Documented By: CODY Losartan Potassium (Losartan Potassium 50 Mg Tablet) 100 mg PO DAILY [facility]; Protocol Last Admin: 02/07/25 08:34 Dose: 100 mg Documented By: DENISE Magnesium Oxide (Magnesium Oxide 400 Mg Tablet) 400 mg PO DAILY [facility] Last Admin: 02/07/25 08:34 Dose: 400 mg Documented By: DENISE Melatonin (Melatonin 3 Mg Tablet) 6 mg PO BEDTIME PRN PRN Reason: Insomnia Montelukast Sodium (Montelukast Sodium 10 Mg Tablet) 10 mg PO BEDTIME [facility] Last Admin: 02/06/25 20:07 Dose: 10 mg Documented By: CODY Multivitamins/Vitamin C (Multivitamin Tablet) 1 tab PO DAILY [facility] Last Admin: 02/07/25 08:33 Dose: 1 tab Documented By: DENISE Sodium Chloride (0.9 % Sodium Chloride Flush 3 Ml Syringe) [facility] Last Admin: 02/07/25 08:49 Dose: 3 ml Documented By: DENISE Spironolactone (Spironolactone 25 Mg Tablet) 25 mg PO DAILY [facility]; Protocol Last Admin: 02/07/25 08:33 Dose: 25 mg Documented By: DENISE Tramadol HCl (Tramadol Hcl 50 Mg Tablet) 50 mg PO DAILY PRN PRN Reason: Pain, Moderate(Pain Scale 4-6) Triamcinolone Acetonide (Triamcinolone Acet 0.5 % Oint 15 Gm Tube) 1 appl TOPICAL BID PRN PRN Reason: Skin Irritation Vitamin D (Cholecalciferol (Vitamin D3) 25 Mcg Tablet) 25 mcg PO DAILY [facility] Last Admin: 02/07/25 08:34 Dose: 25 mcg Documented By: DENISE Labs 02/07/25 08:22 02/05/25 22:44 Labs: Laboratory Results - last 24 hr 02/07/25 08:22 MCV 94.4 MCH 32.6 MCHC 34.5 RDW 13.9 Plt Count 229 MPV 8.7 L Absolute Nucleated RBC 0.000 Nucleated RBC % (auto) 0.0 Assessment and Plan (1) Bleeding per rectum: Status: Acute Assessment and Plan: Pt is an 89-year-old female with a PMH significant for paroxysmal AFib on Xarelto, hx of DVT/PE, HTN, migraines, arthritis, asthma, chronic lower extremity edema who presented to the ED for passing blood clots per rectum. Pt was admitted to the hospital under general surgery services with hospitalist consult for medical management. Hematochezia No overnight bleeding; last reported bleeding with clots at 16:00 yesterday H&H stable while in the hospital, today 9.8/28.4 Plan as per general surgery Hx of paroxysmal AFib, hx of DVT/PE Hold Xarelto due to concern for GIB Pt appears to have irregularly irregular rhythm, was regular yesterday Reports known to be in AFib twice before Currently asymptomatic Pt not on rhythm or rate control Will check EKG Asthma Not in acute exacerbation Chronic lower extremity edema/lymphedema Continue home furosemide, spironolactone Migraines Continue Fiorcet HTN Continue losartan Thank you for allowing us to participate in the care of this pt. We will continue to follow along with you. Quality Stroke Does the patient have a stroke diagnosis?: No VTE Prior VTE?: No VTE Risk Level:: Medical - moderate - high VTE Device Contraindication: N/A - Device Ordered VTE Drug Contraindication: Treatment Not Indicated
--- NOTE | 2025-02-07 09:48 | MHC.CM.PN ---
IMM DELIVERED. PT LIVES WITH SPOUSE. PT USES [facility] FOR MOBILITY. NO SERVICES. +HCP AT HOME, PER DAUGHTER, IT WILL BE PROVIDED ONLY IF NEEDED. PCP DR. HERRERA. PT WILL BE TRANSITIONING TO A [facility] [place] HERRERA WILL RETIRE SOON. DP: HOME , NO SERVICES IS THE GOAL. PT'S SPOUSE WILL TRANSPORT. CM WILL CONTINUE TO FOLLOW FOR ANY CHANGE TO DC PLAN.
[2025-02-07] MEDS: Fluticasone/Vilanterol 200/25 BLST.W.DEV 1 PUFF INHALE (11:38)
[2025-02-07] MEDS: Butalb/Acetamin/Caff 50/325/40 TABLET 1 TAB PO (13:11)
--- NOTE | 2025-02-07 14:10 | P.CDIM_ITS ---
PROVIDER RESPONSE TEXT: To clarify, the appropriate diagnosis supported by the clinical indicators: adverse effect of anticoagulant use QUERY TEXT: PHYSICIAN'S DOCUMENTATION REQUEST Date of Query: 02/07/2025 08:39 AM EDT Patient Name: Natalia Beverly Admit Date: 02/06/2025 Dear Jorge L Arias MD, A review of the medical record indicates additional documentation may be needed. Please review below and update the documentation accordingly. Clinical Indicators: rectal bleed, abdominal pain s/p 01/29 exc tubulovillous polyp rectum HH 9.7/28.4 on Xarelto The following diagnoses or signs and symptoms were noted in the patient record: Per General Surgery H&P: Her bleeding is likely from her surgical site with anticoagulation anticoagulation on hold Based on the above, could you clarify the appropriate diagnosis, if significant, that supports the ab ove abnormalities and additional evaluation, monitoring, and/or treatment rendered: bleeding due to anticoagulation use adverse effect of anticoagulant use Other (explain) Clinically unable to determine (explain) Thank you, Cynthia Miranda RN Use of terms such as suspected, likely, concern for, or probable (associated with a specific diagnosi s that is being evaluated, monitored, or treated as if it exists) are acceptable and can be coded in the inpatient se tting, when documented at the time of discharge. Please use your independent medical judgment in providing your response. THIS QUERY IS PART OF THE PERMANENT MEDICAL RECORD
--- NOTE | 2025-02-07 14:15 | PM.EVENT ---
Event Note Date of Service: 02/07/25 Event Note: Seen on afternoon rounds No further episodes of passage of clots per rectum or blood Looks comfortable Abdomen is soft Stable vital signs Follow up hemoglobin stable at 9.8 If no further bleeding, plan to discharge tomorrow We will discuss option of not restarting Xarelto Daughter at bedside Time Spent With Patient Time: Total time managing care of this patient today ____ minutes.
[2025-02-07] MEDS: Triamcinolone Acet 0.5 % Oint 15 GM TUBE 1 APPL TOPICAL (14:19)
[2025-02-07] MEDS: Gabapentin 300 MG CAPSULE PO (21:13)
[2025-02-07] MEDS: Montelukast Sodium 10 MG TABLET PO (21:14)
[2025-02-08 03:40] VITALS: BP 126/72; PULSE 80; RESP 18; TEMP 36.2; O2SAT 92
[2025-02-08] MEDS: Butalb/Acetamin/Caff 50/325/40 TABLET 1 TAB PO (05:49)
[2025-02-08 07:45] VITALS: BP 164/90; PULSE 89; RESP 18; TEMP 36.6; O2SAT 95
[2025-02-08] MEDS: Fluticasone/Vilanterol 200/25 BLST.W.DEV 1 PUFF INHALE (07:53)
--- NOTE | 2025-02-08 07:53 | P.PNGS_ITS ---
Subjective Subjective Date of Service: 02/08/25 Interval history: Feels well No further bleeding episodes Tolerating diet well Physical Exam 2 Vital Signs: Vital Signs: Last Vital Signs Temp 97.8 F 02/08/25 07:45 Pulse 89 02/08/25 07:45 Resp 18 02/08/25 07:45 BP 164/90 H 02/08/25 07:45 Pulse Ox 95 02/08/25 07:45 O2 Del Method Room Air 02/08/25 07:45 BMI result Body Mass Index 33.1 Const: General: comfortable and no acute distress Resp: Effort & Inspection: normal respiratory effort Cardio: Rate: regular rate GI: Palpation (GI): Soft to palpation, not firm and nontender Objective Data Active Medications Acetaminophen (Acetaminophen 325 Mg Tablet) 650 mg PO Q6H PRN PRN Reason: Pain, Mild 1-3,fever,headache Last Admin: 02/07/25 08:47 Dose: 650 mg Documented By: DENISE Acetaminophen/Butalbital/Caffeine (Butalb/Acetamin/Caff 50/325/40 Tablet) 1 tab PO Q12H PRN PRN Reason: Migraine Headache Last Admin: 02/08/25 05:49 Dose: 1 tab Documented By: CODY Albuterol Sulfate (Albuterol Sulfate 90 Mcg 8 Gm Inhaler) 1 puff INHALE QID PRN PRN Reason: Shortness Of Breath Or Wheezing Albuterol/Ipratropium (Albuterol/Iprat 2.5/0.5mg 3 Ml Ampul.Neb) 3 ml INHALE QID [facility] Last Admin: 02/07/25 19:35 Dose: 3 ml Documented By: MUMTAZ Calcium Carbonate (Calcium Carbonate 750 Mg Tab.Chew) 750 mg PO Q4H PRN PRN Reason: Heartburn Docusate Sodium (Docusate Sodium 100 Mg Capsule) 100 mg PO BID [facility] Last Admin: 02/07/25 21:13 Dose: 100 mg Documented By: CODY Fluticasone/Vilanterol (Fluticasone/Vilanterol 200/25 Blst.W.Dev) 1 puff INHALE RDAILY [facility] Last Admin: 02/07/25 11:38 Dose: 1 puff Documented By: JULITO Furosemide (Furosemide 20 Mg Tablet) 20 mg PO DAILY PRN; Protocol PRN Reason: lower extremity swelling Furosemide (Furosemide 20 Mg Tablet) 20 mg PO DAILY [facility]; Protocol Last Admin: 02/07/25 08:38 Dose: 20 mg Documented By: DENISE Gabapentin (Gabapentin 300 Mg Capsule) 300 mg PO BEDTIME [facility] Last Admin: 02/07/25 21:13 Dose: 300 mg Documented By: CODY Losartan Potassium (Losartan Potassium 50 Mg Tablet) 100 mg PO DAILY [facility]; Protocol Last Admin: 02/07/25 08:34 Dose: 100 mg Documented By: DENISE Magnesium Oxide (Magnesium Oxide 400 Mg Tablet) 400 mg PO DAILY [facility] Last Admin: 02/07/25 08:34 Dose: 400 mg Documented By: DENISE Melatonin (Melatonin 3 Mg Tablet) 6 mg PO BEDTIME PRN PRN Reason: Insomnia Montelukast Sodium (Montelukast Sodium 10 Mg Tablet) 10 mg PO BEDTIME [facility] Last Admin: 02/07/25 21:14 Dose: 10 mg Documented By: CODY Multivitamins/Vitamin C (Multivitamin Tablet) 1 tab PO DAILY [facility] Last Admin: 02/07/25 08:33 Dose: 1 tab Documented By: DENISE Sodium Chloride (0.9 % Sodium Chloride Flush 3 Ml Syringe) 3 ml IVFLUSH [facility] Last Admin: 02/07/25 21:15 Dose: 3 ml Documented By: CODY Spironolactone (Spironolactone 25 Mg Tablet) 25 mg PO DAILY [facility]; Protocol Last Admin: 02/07/25 08:33 Dose: 25 mg Documented By: DENISE Tramadol HCl (Tramadol Hcl 50 Mg Tablet) 50 mg PO DAILY PRN PRN Reason: Pain, Moderate(Pain Scale 4-6) Triamcinolone Acetonide (Triamcinolone Acet 0.5 % Oint 15 Gm Tube) 1 appl TOPICAL BID PRN PRN Reason: Skin Irritation Last Admin: 02/07/25 14:19 Dose: 1 appl Documented By: DENISE Vitamin D (Cholecalciferol (Vitamin D3) 25 Mcg Tablet) 25 mcg PO DAILY [facility] Last Admin: 02/07/25 08:34 Dose: 25 mcg Documented By: DENISE Labs 02/07/25 08:22 02/05/25 22:44 Labs: Laboratory Results - last 24 hr 02/07/25 08:22 MCV 94.4 MCH 32.6 MCHC 34.5 RDW 13.9 Plt Count 229 MPV 8.7 L Absolute Nucleated RBC 0.000 Nucleated RBC % (auto) 0.0 Procedures Date of Service Date of Service: 02/08/25 Progress Note: A&P Assessment and plan (1) Bleeding per rectum: Status: Acute Assessment and Plan: No further bleeding episodes for more than 36 hours Bleeding likely from excision site in the rectum with anticoagulation Discussed at length with the hospitalist service - I would hold off on anticoagulation for now I will see her on Tuesday in the office and if she has no further bleeding, plan to restart Xarelto She looks well overall Path report shows tubulovillous adenoma Time Spent With Patient Time: Total time managing care of this patient today ____ minutes. Quality Stroke Does the patient have a stroke diagnosis?: No VTE Prior VTE?: No VTE Risk Level:: Medical - moderate - high VTE Device Contraindication: N/A - Device Ordered VTE Drug Contraindication: Treatment Not Indicated
[2025-02-08 07:55] VITALS: PULSE 87; RESP 18; O2SAT 93
[2025-02-08] MEDS: Albuterol/Iprat 2.5/0.5MG 3 ML AMPUL.NEB INHALE (07:55)
[2025-02-08 08:19] VITALS: BP 155/78; PULSE 97; RESP 18
[2025-02-08] MEDS: Spironolactone 25 MG TABLET PO (08:19)
[2025-02-08] MEDS: Cholecalciferol (Vitamin D3) 25 MCG TABLET PO (08:19)
[2025-02-08] MEDS: Multivitamin TABLET 1 TAB PO (08:20)
[2025-02-08] MEDS: Furosemide 20 MG TABLET PO (08:20)
[2025-02-08] MEDS: Magnesium Oxide 400 MG TABLET PO (08:20)
[2025-02-08] MEDS: Docusate Sodium 100 MG CAPSULE PO (08:20)
[2025-02-08] MEDS: Losartan Potassium 50 MG TABLET 100 MG PO (08:20)
[2025-02-08] MEDS: 0.9 % Sodium Chloride Flush 3 ML SYRINGE IVFLUSH (08:21)
--- NOTE | 2025-02-08 09:31 | P.PNIM_ITS ---
Subjective Subjective Date of Service: 02/08/25 Interval History: No acute events overnight No recurrence of rectal bleeding, has had nonbloody bowel movements for the past 2 days Complains of migraine for which she took a Fioricet Feels a little weak, but overall well Has been tolerating regular diet No lightheadedness, dizziness, nausea, or vomiting Review of Systems Negative except for that which is stated in the HPI Review of Systems: Yes all other systems are reviewed and are negative Physical Exam 2 Vital Signs: Vital Signs: Last Vital Signs Temp 97.8 F 02/08/25 07:45 Pulse 97 02/08/25 08:19 Resp 18 02/08/25 08:19 BP 155/78 H 02/08/25 08:19 Pulse Ox 95 02/08/25 07:45 O2 Del Method Room Air 02/08/25 07:45 BMI result Body Mass Index 33.1 General: AOx3, no acute distress Resp: CTA bilaterally CVS: S1, S2, RRR, +murmur GI: +BS, NT, no distention Skin: Warm, dry Neuro: Cranial nerves II-XII grossly intact bilaterally. Motor grossly intact bilaterally Extremities: 1+ pitting lower leg edema bilaterally with chronic venous stasis dermatitis changes Psych: Appropriate affect Objective Data Active Medications Acetaminophen (Acetaminophen 325 Mg Tablet) 650 mg PO Q6H PRN PRN Reason: Pain, Mild 1-3,fever,headache Last Admin: 02/07/25 08:47 Dose: 650 mg Documented By: DENISE Acetaminophen/Butalbital/Caffeine (Butalb/Acetamin/Caff 50/325/40 Tablet) 1 tab PO Q12H PRN PRN Reason: Migraine Headache Last Admin: 02/08/25 05:49 Dose: 1 tab Documented By: CODY Albuterol Sulfate (Albuterol Sulfate 90 Mcg 8 Gm Inhaler) 1 puff INHALE QID PRN PRN Reason: Shortness Of Breath Or Wheezing Albuterol/Ipratropium (Albuterol/Iprat 2.5/0.5mg 3 Ml Ampul.Neb) 3 ml INHALE QID [facility] Last Admin: 02/08/25 07:55 Dose: 3 ml Documented By: JULITO Calcium Carbonate (Calcium Carbonate 750 Mg Tab.Chew) 750 mg PO Q4H PRN PRN Reason: Heartburn Docusate Sodium (Docusate Sodium 100 Mg Capsule) 100 mg PO BID [facility] Last Admin: 02/08/25 08:20 Dose: 100 mg Documented By: DENISE Fluticasone/Vilanterol (Fluticasone/Vilanterol 200/25 Blst.W.Dev) 1 puff INHALE RDAILY [facility] Last Admin: 02/08/25 07:53 Dose: 1 puff Documented By: JULITO Furosemide (Furosemide 20 Mg Tablet) 20 mg PO DAILY PRN; Protocol PRN Reason: lower extremity swelling Furosemide (Furosemide 20 Mg Tablet) 20 mg PO DAILY [facility]; Protocol Last Admin: 02/08/25 08:20 Dose: 20 mg Documented By: DENISE Gabapentin (Gabapentin 300 Mg Capsule) 300 mg PO BEDTIME [facility] Last Admin: 02/07/25 21:13 Dose: 300 mg Documented By: CODY Losartan Potassium (Losartan Potassium 50 Mg Tablet) 100 mg PO DAILY [facility]; Protocol Last Admin: 02/08/25 08:20 Dose: 100 mg Documented By: DENISE Magnesium Oxide (Magnesium Oxide 400 Mg Tablet) 400 mg PO DAILY [facility] Last Admin: 02/08/25 08:20 Dose: 400 mg Documented By: DENISE Melatonin (Melatonin 3 Mg Tablet) 6 mg PO BEDTIME PRN PRN Reason: Insomnia Montelukast Sodium (Montelukast Sodium 10 Mg Tablet) 10 mg PO BEDTIME [facility] Last Admin: 02/07/25 21:14 Dose: 10 mg Documented By: CODY Multivitamins/Vitamin C (Multivitamin Tablet) 1 tab PO DAILY [facility] Last Admin: 02/08/25 08:20 Dose: 1 tab Documented By: DENISE Sodium Chloride (0.9 % Sodium Chloride Flush 3 Ml Syringe) 3 ml IVFLUSH QSHIFT [facility] Last Admin: 02/08/25 08:21 Dose: 3 ml Documented By: DENISE Spironolactone (Spironolactone 25 Mg Tablet) 25 mg PO DAILY [facility]; Protocol Last Admin: 02/08/25 08:19 Dose: 25 mg Documented By: DENISE Tramadol HCl (Tramadol Hcl 50 Mg Tablet) 50 mg PO DAILY PRN PRN Reason: Pain, Moderate(Pain Scale 4-6) Triamcinolone Acetonide (Triamcinolone Acet 0.5 % Oint 15 Gm Tube) 1 appl TOPICAL BID PRN PRN Reason: Skin Irritation Last Admin: 02/07/25 14:19 Dose: 1 appl Documented By: DENISE Vitamin D (Cholecalciferol (Vitamin D3) 25 Mcg Tablet) 25 mcg PO DAILY [facility] Last Admin: 02/08/25 08:19 Dose: 25 mcg Documented By: DENISE Labs 02/07/25 08:22 02/05/25 22:44 Assessment and Plan (1) Bleeding per rectum: Status: Acute Plan Pt is an 89-year-old female with a PMH significant for paroxysmal AFib on Xarelto, hx of DVT/PE, HTN, migraines, arthritis, asthma, chronic lower extremity edema who presented to the ED for passing blood clots per rectum. Pt was admitted to the hospital under general surgery services with hospitalist consult for medical management. Hematochezia No overnight bleeding; last reported rectal bleeding two days ago H&H stable while in the hospital Plan as per general surgery Hx of paroxysmal AFib, hx of DVT/PE Continue to hold Xarelto due to concern for GIB, resume per pt's roping machine tender Asthma Not in acute exacerbation Chronic lower extremity edema/lymphedema Continue home furosemide, spironolactone Migraines Continue Fiorcet HTN Continue losartan Thank you for allowing us to participate in the care of this pt. Will sign off for now. Please reconsult if any acute issue or need arises. Quality Stroke Does the patient have a stroke diagnosis?: No VTE Prior VTE?: No VTE Risk Level:: Medical - moderate - high VTE Device Contraindication: N/A - Device Ordered VTE Drug Contraindication: Treatment Not Indicated
--- NOTE | 2025-02-08 10:34 | PM.EVENT ---
Event Note Date of Service: 02/08/25 Event Note: Seen on follow up rounds She continues to do well Good GI functions No further episodes of bleeding She looks well overall I have reviewed her case with the hospitalist service Okay to DC home today, okay to hold off on Xarelto I will see her in the office on Tuesday Discussed above with the patient and she is comfortable with the plan Time Spent With Patient Time: Total time managing care of this patient today ____ minutes.
--- NOTE | 2025-02-08 10:47 | MHC.CM.PN ---
pt medically cleared for dc home self-care, pt's spouse will transport
--- NOTE | 2025-02-08 15:06 | P.DS_ITS ---
DS: Providers Provider Date of Service: 02/08/25 Date of admission: 02/06/25 08:10 Date of discharge: 02/08/25 Primary care physician: Beck Reyna MD Attending physician on admission: Jorge L Arias Consults: 02/06/25 08:12 Consult to Hospitalist Routine Comment: Consulting Provider[place] [facility] [facility] Reason For Exam: COPD, asthma, on anticoagulation for AFib Attending physician on discharge: Jorge L Arias DS: Diagnosis Discharge Diagnosis (1) Bleeding per rectum: Status: Acute DS: Summary Hospital Course Hospital Course: HPI AT ADMISSION: Natalia Beverly is an 89-year-old female here in the ER for passage of blood clots per rectum. She had undergone transanal excision of the large distal rectal flat polyp last 01/29/2025. She had been on anticoagulation with Eliquis which was on hold at that time. This was restarted on 02/01/2025. She says she had been doing well since that time. However, yesterday, around 05:00 in the afternoon, she noticed passage of blood clots per rectum. She says that happen again that around 09:00 last night enlarged amounts so she went to the ER. Her last episode was about 03:00 this morning and this was much less in volume. She had undergone a colonoscopy with Dr. Whitley last 12/04/2024 because of this is of blood per rectum and that was when the rectal polyp near the dentate line had been found. She describes occasional bleeding prior to the polypectomy. She says that this started around November of 2024. She says that this would be bright blood per rectum. She is on Eliquis and has been on this for many years because of atrial fibrillation. She also has a history of a DVT and a PE more than 50 years ago. Currently she is comfortable although states that she does have asthma and gets short of breath periodically. Again, she states that the last time she would notice blood was at 03:00 in the morning and this has only seen on wiping. HOSPITAL COURSE: She was admitted to the surgical service for the BRBPR. She seemed to have improved at the time of admission, her H/H was stable. Bleeding likely from her surgical site with anticoagulation, noted to have diverticulosis on colonoscopy so this was included in differential as well. Her anticoagulation was held, hospitalist service was consulted for management of her medical comorbidities. She had no further bleeding episodes. Her diet was advanced. She began to have nonbloody BMs. Her H/H remained stable. She was hemodynamically stable. She felt well and was discharged to home on 02/08/25 in stable condition. She was instructed to hold her eliquis until she was seen in follow up in the office that Tuesday with Dr. Arias. Status at Discharge Overall status at discharge: patient is progressing back to baseline Time Attestation Discharge Coordination Time (in mins): 30 Quality: Safe Use of Opioids Does Pt have an Active Cancer Diagnosis on the Problem List?: No Quality: Stroke Does the patient have a stroke diagnosis?: No Physical Exam Vital Signs: Vital Signs: Last Vital Signs Temp 97.8 F 02/08/25 07:45 Pulse 97 02/08/25 08:19 Resp 18 02/08/25 08:19 BP 155/78 H 02/08/25 08:19 Pulse Ox 95 02/08/25 07:45 O2 Del Method Room Air 02/08/25 07:45 BMI result Body Mass Index 33.1 Const: General: comfortable and no acute distress Resp: Effort & Inspection: normal respiratory effort GI: Palpation (GI): Soft to palpation and nontender Discharge Plan Discharge Anticipated Discharge Date/Time: 02/07/25 11:46 Patient Disposition: Home, Self-Care Discharge Diagnosis: BRBPR Referrals: Jorge L Arias MD [Physician] - 1 Week Beck Reyna MD [Primary Care Provider] - 1 Week Discharge Medications: Continued docusate sodium [Colace] 100 mg capsule 100 mg PO BID Qty: 60 2RF gabapentin 300 mg capsule 300 mg PO BEDTIME Rx Instructions: TAKE 1 CAPSULE AT BEDTIME -DOSE DECREASE. DISCONTINUE PRESCRIPTION FOR 600MG furosemide 20 mg tablet 20 mg PO DAILY PRN (Reason: lower extremity swelling) Rx Instructions: TAKE 1 TABLET ONCE DAILY, TAKE AN EXTRA TABLET ONCE DAILY NEEDED FOR INCREASED LOWER EXTREMITY SWELLING-NOTIFY OFFICE FIRST iuktrwgpym-tneuzkwvhiabh-seap 50-300-40 mg capsule 1 cap PO Q12H PRN (Reason: Migraine Headache) ipratropium-albuterol 0.5 mg-3 mg(2.5 mg base)/3 mL solution for nebulization 3 ml INHALATION QID calcium carbonate [Calcium 600] 600 mg calcium (1,500 mg) Tablet 1,200 mg PO DAILY furosemide 20 mg tablet 20 mg PO DAILY albuterol sulfate 90 mcg/actuation Hfa Aerosol Inhaler 1 puff INHALATION QID PRN (Reason: Shortness Of Breath Or Wheezing) betamethasone dipropionate 0.05 % Ointment 1 appl TOPICAL BID PRN (Reason: Skin Irritation) budesonide-formoterol [Breyna] 160-4.5 mcg/actuation HFA aerosol inhaler 2 inh INHALATION BID Centrum Adult 50 Plus 80 mcg Tablet,Chewable 1 tab PO DAILY terazosin 5 mg capsule 5 mg BEDTIME losartan 100 mg tablet 100 mg DAILY tramadol 50 mg tablet 50 mg PO DAILY PRN (Reason: Pain) montelukast 10 mg tablet 10 mg PO BEDTIME cholecalciferol (vitamin D3) 25 mcg (1,000 unit) capsule 25 mcg PO DAILY magnesium 250 mg tablet 250 mg PO DAILY spironolactone 25 mg tablet 25 mg PO DAILY Held Xarelto 20 mg tablet 20 mg DAILY Hold Instructions: Resume on 02/11/25. Discharge Orders: Discharge Order (Routine); Ordered 02/08/25 Ordered By: Jorge L Arias Diet: Advance to usual diet Activity on Discharge: As tolerated Stand Alone Forms: Patient Portal Discharge page Print Language: Malagasy Activity Restrictions/Additional Instructions: Follow up in office in a week. ([phone]) DO NOT RESTART XARELTO UNTIL INSTRUCTED OTHERWISE Call Your Doctor If: ? ? -Your temperature exceeds 101? F? ? ? -You experience excessive pain or swelling ? ? -You have an unexpected reaction to medication ? ? -You experience continued vomiting/nausea -You have persistent bleeding per rectum Care Plan Goals: Healing at excision site. Return to baseline health and resume normal activities. Health Concerns: s/p transanal excision of tubulovillous polyp in the rectum on anticoagulation Plan of Treatment: Observation Hold xarelto Assessment: Improved Discharge Date/Time: 02/08/25 11:35
== END 2025-02-08 11:35 | disposition home or self-care (01) | DRG 919 ==
LOC: HO.ED 02-06 07:33 → HO.EDOVER 02-06 08:14 → HO.S3 02-06 13:33
PROVIDERS: Admitting Provider Surgery; Emergency Provider Emergency Medicine; PCP Family Medicine; Visit Provider Surgery
DX: K91.840 Postprocedural hemorrhage of a digestive system organ or structure following a digestive system procedure (principal); K57.31 Diverticulosis of large intestine without perforation or abscess with bleeding; K62.5 Hemorrhage of anus and rectum; D68.32 Hemorrhagic disorder due to extrinsic circulating anticoagulants; Y84.8 Other medical procedures as the cause of abnormal reaction of the patient, or of later complication, without mention of misadventure at the time of the procedure; T45.515A Adverse effect of anticoagulants, initial encounter; I10 Essential (primary) hypertension; G43.909 Migraine, unspecified, not intractable, without status migrainosus; I48.0 Paroxysmal atrial fibrillation; J45.909 Unspecified asthma, uncomplicated; I89.0 Lymphedema, not elsewhere classified; Z86.711 Personal history of pulmonary embolism; Z86.718 Personal history of other venous thrombosis and embolism; Z79.01 Long term (current) use of anticoagulants; Z79.899 Other long term (current) drug therapy
CPT/HCPCS: 36415; 74177; 80053; 85025; 85027; 85610; 86850; 86900; 86901; 93005; 94640; 99285; Q9967

== ENCOUNTER → 2025-02-06 00:35 | Outpatient (BNV) | payer MEDICARE, SELFPAY | PROVIDERS: Emergency Provider Emergency Medicine; PCP Family Medicine; Visit Provider Radiology Diagnostic Radiology | DX: R10.9 Unspecified abdominal pain (principal) | CPT/HCPCS: 74177 ==

== ENCOUNTER 2025-02-06 08:10 | Outpatient (BNV) | payer MEDICARE, SELFPAY | END 2025-02-07 09:44 | PROVIDERS: Admitting Provider Surgery; Emergency Provider Emergency Medicine; PCP Family Medicine; Visit Provider Internal Medicine | DX: R94.31 Abnormal electrocardiogram [ECG] [EKG] (principal); Z13.6 Encounter for screening for cardiovascular disorders | CPT/HCPCS: 93010 ==

== ENCOUNTER → 2025-02-06 08:10 | Outpatient (BNV) | payer MEDICARE, SELFPAY | PROVIDERS: Admitting Provider Surgery; Emergency Provider Emergency Medicine; PCP Family Medicine; Visit Provider Student in an Organized Health Care Education/Training Program | DX: K62.5 Hemorrhage of anus and rectum (principal) | CPT/HCPCS: 99223; 99232 ==

== ENCOUNTER → 2025-02-06 08:10 | Outpatient (BNV) | payer MEDICARE, SELFPAY | PROVIDERS: Admitting Provider Surgery; Emergency Provider Emergency Medicine; PCP Family Medicine; Visit Provider Surgery | DX: K62.5 Hemorrhage of anus and rectum (principal) | CPT/HCPCS: 99024; 99499 ==

== ENCOUNTER 2025-02-11 09:53 | Outpatient (AMB) | payer MEDICARE, SELFPAY ==
--- NOTE | 2025-02-11 09:54 | MHC.OFFVIS ---
Vital Signs 02/11/25 10:02 Weight 156 lb BP 103/49 L Blood Pressure Location Rt brachial Position Sitting Pulse 75 Intake Visit Reasons: S/P EUA, exc. rectal lesion Intake Note: Patient here s/p transanal excision of tubulovillous polyp in the rectum. Reports incision Patient c/o: reports no pain, no bleeding. Hard stool for the past couple of days. Taking Colace. Surgery: 01-29-2025 Director Of Global Marketing Required: No Accompanied by: daughter Giana Allergies latex Allergy (Intermediate, Verified 02/11/25 10:00) Itching prednisone Adverse Reaction (Severe, Verified 02/11/25 10:00) mouth sores benzoin Adverse Reaction (Intermediate, Verified 02/11/25 10:00) rash Medication List - Last Reconciled 02/11/25 by Jorge L Arias MD albuterol sulfate 90 mcg/actuation 1 puff inhalation QID PRN betamethasone dipropionate 0.05% 1 appl topical BID PRN budesonide-formoterol 160-4.5 mcg/actuation (Breyna) 2 inhalations inhalation BID rsextodajp-snhiudelautiv-rrdr 50-300-40 mg 1 cap PO Q12H PRN calcium carbonate (Calcium 600) 1,200 mg PO DAILY cholecalciferol (vitamin D3) 25 mcg PO DAILY docusate sodium (Colace) 100 mg PO BID furosemide 20 mg PO DAILY furosemide 20 mg PO DAILY PRN gabapentin 300 mg PO BEDTIME ipratropium-albuterol 0.5 mg-3 mg(2.5 mg base)/3 mL 3 mL inhalation QID losartan 100 mg DAILY magnesium 250 mg PO DAILY montelukast 10 mg PO BEDTIME multivit with min-folic acid 80 mcg (Centrum Adult 50 Plus) 1 tab PO DAILY rivaroxaban (Xarelto) 20 mg DAILY spironolactone 25 mg PO DAILY terazosin 5 mg BEDTIME tramadol 50 mg PO DAILY PRN HPI HPI S/P EUA, exc. rectal lesion: Details: She had undergone transanal excision of rectal polyp last 01/29/2025. She tolerated procedure well. She had been on anticoagulation for atrial fibrillation and a remote history of DVT. This was stopped prior to the procedure. She had restarted this last February 01, 2025. She started to have some blood per rectum on February 04 so she was admitted to the hospital on February 06. She was kept for 2 days and her hemoglobin had remained stable. She did not require any blood transfusion I had instructed her to hold her Xarelto until I see her again today. She has had no further episodes. She has had good bowel movements. She feels well overall denies pain. 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 Osteoarthritis Sciatica Pneumonia Venous insufficiency Diverticulitis COPD (chronic obstructive pulmonary disease) Leg cramps Insomnia Sinusitis GERD (gastroesophageal reflux disease) Hypertension Surgical History History of surgery on arm History of surgery on wrist History of bilateral cataract extraction Hx of shoulder surgery History of left knee replacement History of carpal tunnel release History of lobectomy of lung Hx of foot surgery Hx of section History of esophagogastroduodenoscopy (EGD) H/O colonoscopy Status post revision of total knee replacement History of total knee replacement (TKR) H/O total hysterectomy H/O vein stripping Social History Household Members: Spouse Housing: House Are you a primary personal care aid to a significant other at home: No Do you presently have visiting nurse or other home services: No Alcohol intake: current Alcohol intake frequency: holidays/special occasions only Patient Tobacco Use Status: Never used Tobacco service: No Review of Systems Const Denies chills and Denies fever(s) Card Denies chest pain Resp Denies cough GI Denies abdominal pain Physical Exam Const General: comfortable and no acute distress Resp Effort & Inspection: normal respiratory effort Cardio Rate: regular rate GI Other: Rectal exam does not show any evidence of bleeding or infection Palpation (GI): Soft to palpation, not firm and nontender Assessment & Plan Assessment & Plan (1) Rectal polyp: Code(s): K62.1 - Rectal polyp Category: Medical Plan: Status post transanal excision. Her path report shows a tubulovillous adenoma without signs of any malignancy She had some bleeding postop after she was restarted on Xarelto. She has had no bleeding for about 5 days now now so I am going to restart her on Xarelto. She looks well overall. Her recent colonoscopy with Dr. Whitley also showed diverticulosis aside from the rectal polyp. I will see her again in the office in about 2-3 months. I will plan on repeating her anoscopy. I also recommended to her to discuss with her primary care physician the option of not being restarted on anticoagulation anymore in consideration of the risk- benefits ratio. Coding Level of Care Code Global (52393) Diagnoses Rectal polyp K62.1
[2025-02-11 10:02] VITALS: BP 103/49; PULSE 75
--- OUTSIDE RECORDS SUMMARY | 2025-02-11 10:14 | XMS_ITS ---
Author Organization [facility] Address [address] [place] [address] Care Team Providers Care Certified Alcohol Counselor Name Role Phone Beck Reyna MD Primary Care Provider [facility] [phone] REASON FOR VISIT Needs appt. with Dr. Arias Encounters Encounter Location Date Provider Diagnosis [facility] [address] [place] [address] 12/09/2024 [facility] Plan Of Treatment No Information Progress Notes * JAN NAVARRETEDOB:[birth year] (89 yo F)Acc No.[id number]:12/09/2024 Patient:?JAN NAVARRETE :1935???Age:89 Y???Sex:Female Address:[address] [place], [place] [address] [address] * true * Date:? Generated for Adam lux/Gregorio/eTransmitting on:?02/11/2025 10:14 AM EDT
--- OUTSIDE RECORDS SUMMARY | 2025-02-11 10:14 | XMS_ITS ---
Author Organization [facility] Address [address] [place] [address] Care Team Providers Care Poultry Raiser Name Role Phone Beck Reyna MD Primary Care Provider Unavailab Bon Meza Unavailable [phone] Allergies Allergen (clinical drug ingredient) Drug/Non Drug Allergy documented on EMR Reaction Allergy Type Onset Date Status Benzoin Unknown Drug Allergy Active Latex Latex Unknown Allergy Active prednisone Prednisone Unknown Drug Allergy Activ e REASON FOR VISIT Wart(s) Medications Medication SIG (Take, Route, Frequency, Duration) Notes Start Date End Date Status Symbicort 160-4.5 MCG/ACT 2 puffs Inhala tion Twice a day Not-Taking Ciclopirox Olamine 0.77 % 1 application Externally Twice a day for 30 days Active Xarelto 20 MG 1 tablet with food Orally Once a day for 30 day(s) Active Vitamin D Active traMADol HCl 50 MG 1 tablet as needed Orally Once a day prn Active Nebulizer Active Terazosin HCl 5 MG 1 capsule at bedtime Orally Once a day for 30 day(s) Active Spironolactone 25 MG 1 tablet Orally for 30 day(s) Active ProAir HFA Active Montelukast Sodium A ctive Magnesium Active Losartan Potassium 100 MG 1 tablet Orall y Once a day for 30 day(s) Active Gabapentin 300 MG 1 capsule Orally 3 times a day for 30 days Active Centrum Silver Activ e Furosemide 20 MG 1 tablet Orally Once a day for 30 day(s) Active Fioricet prn Active Calcium + D Active Betamethasone Active Breyna 160-4.5 MCG/ACT as directed Inhalation Active Social History Tobacco Use: Social History Observation Description Date Details (start date - stop date) Never Smoker NA - NA Tobacco use other than smoking: Question Answer Notes Are you an other tobacco user? No Tobacco Control (Standard) Question Answer Notes Tobacco use: Nonsmoker Additional Findings: Tobacco non-user Current no nsmoker Vital Signs Height 4ft 11in in 01/23/2025 Weight 153 lbs 01/23/2025 BMI 30.9 kg/m2 01/23/2025 Blood pressure systolic 129 mm Hg 01/24/20 25 Blood pressure diastolic 70 mm Hg 025 Procedures Procedure Date Ordered Date Performed Result Body Sit e 53901-Dmex Destruction, 1-14 01/23/2025 N/A Encounters Encounter Location Date Provider Diagnosis [facility] [address] [address] 01/23/2025 Bon Martinez Plantar wart B07.0 and Right foot pain M79.671 Assessments Encounter Date Diagnosis (ICD Code) Assessment Notes Treatment Notes Treatment Clinical Notes Section Notes 01/23/2025 Plantar wart (ICD-10 - B07.0) 01/23/2025 Right foot pain (ICD-10 - M79.671) Plan Of Treatment Pending Test Test Name Order Date [id number]-Cnvh Destruction, -01/23/2025 Next Appt Details Follow Up: prn, Reason: Provider Name:Bon Martinez , 02/28/2025 02:00:00 PM, [address] [place] [address], [phone], Provider Name:Bon Martinez , 04/18/2025 03:45:00 PM, [address] [place] [address], [id number], Procedure Notes * Category Sub-Category Detail Notes Wart Treatment Procedure Verruca, as desc ribed in exam, were debrided to pin- point bleeding margins with sterile 15 surgical blade, silver nitrate chemocautery applied, recomm. immune-boosting meds such as zinc, recomm. follow up with topical chemosurgical agents, recomm. Wartstick 40 percent Salicylic acid application under occlusion as directed, Pt defers any other forms of tx - 58042 Progress Notes * Claribel CESAR:1934 (89 yo F)Acc No.[id number]:01/23/2025 Progress Notes Patient:?Natalia CESAR Provider:?Bon Martinez DPM :1935???Age:89 Y???Sex:Female D ate:01/23/2025 Address:[address] [place], [place] [id number] Pcp:Beck Reyna MD Subjective: * Chief Complaints: * ???Wart(s) * HPI: ???Wart:?Pt States Last PCP Visit:?Date:?12/14/2024 ?Misc:?Pt accompanied by ,RAMONA, who is physically present in exam room at time of visit.? * ROS:?General/Constitutional:?Nausea?admits.?Vomiting?denies.?Hunger Thirst?denies.?Loss appetite?denies.?Chills?admits.?Fatigue?admits.?Fever?denies.?Night Sweats?admits.?Unexplained weight loss?denies.?Unexplained weight gain?denies.?HEENTM:?Dentures?admits.?Dizziness?admits.?Glasses/contacts?denies.?Retinopathy?de nies.?Blurred/double vision?denies.?TMJ?denies.?Discharge/drainage?denies.?Implants?denies.?Sore throat?denies.?Dental implants?denies.?Hard of hearing ?denies.?Difficulty chewing/swallowing/speaking?denies.?Nose bleeds?denies.?Sore mouth?denies.?Respiratory:?On Oxygen?denies.?Pneumonia/pleurisy?admits.?Bronchitis?admits.?Emphysema?denies.?C oughing?denies.?Cough blood?denies.?Shortness of breath?admits.?Wheezing?admits.?Cardiovascular:?Pacemaker?denies.?MVP?denies.?WPW?denies.?CHF?denies.?Heart attack?denies.?Septal defect?denies.?Rapid beat?denies.?Chest pain ?denies.?Atrial Fib.?admits.?Murmur/Palpitations?admits.?Gastrointestinal:?Hemorrhoids?admits.?Stomach/Abdominal pain?denies.?Dark blood stool?denies.?Irritable bowel ?denies.?Constipation?denies.?Diarrhea?admits.?Hematology:?Swelling?admits.?Clots?Admits.?Varicose Veins?admits.?Bruising?admits.?Bleeding problem?denies.?Genitourinary:?Blood urine?denies.?Frequent/Painfu/urination/bladder control?denies.?Kidney stones?denies.?Infection (UTI)?denies.?Nephropathy?denies.?sex trans dis (STD)?denies.?Prostate?denies.?Musculoskeletal:?Hammertoes?admits.?Bunions?admits.?Back Pain?admits.?Muscle Cramps/ Resting?admits.?Muscle cramps / walking?admits.?Generalized aches and pains?admits.?Weakness?denies.?Integ.:?Hale?denies.?Scars?admits.?Corns/calluses?admits.?Ingrown nails?admits.?Painful nails?admits.?Open Sores?denies.?Rashes?denies.?Neurologic:?Difficulty sleeping?admits.?Brain disorder?denies.?Numbness?admits.?Balance trouble?admits.?Confusion?denies.?Fainting/blackouts?denies.?Tingling?admits.?Tr emors?denies.? * Medical History:? * Surgical History:? 1971lung surgery, blood clot, partial removal 1973hysterectomy 1979varicose veins 1986right knee replacement 1997bunionectomy 2002, 2003left knee replacement 2003, 2004carpal tunnel surgery 2005shoulder surgery 2006Lipoma 2009hammer toe 2010cataract surgery 2012, 2016knee surgery, right 2014vascular surgery 2015wrist surgery 2014Hand Surgery 2017arm 2018laser surgery, vascular 2020tooth implant, 2 11/2023 * Hospitalization/Major Diagno stic Procedure:?[facility]- missed step, fell, stitches on elbow 04/10/24 * Family History:?Mother: dece ased, diagnosed with Unspecified essential hypertension, Unspecified heart disease, Family history of arthritis.?Father: , diagnosed with Unspecified cerebral artery occlusion with cerebral infarction, Family history of arthritis, Other malignant neoplasm of unspecified site.? * Social History:?Tobacco Use:?Tobacco use other than smoking?Are you an other tobacco user??No ?Tobacco Control (Standard)?Tobacco use:?Nonsmoker ?Additional Findings: Tobacco non-user?Current nonsmoker ???Drugs/Alcohol:?Drugs?Have you used drugs other than those for medical reasons in the past 12 months??No ???Miscellaneous:?Caffeine: yes, 1-2 cups per day. ?Children: yes, 1. ?Marital status: . ?Occupation: Retired. * Medications:?TakingBreyna 16 0-4.5 MCG/ACT Aerosol as directed Inhalation Betamethasone Calcium + D Fioricet , Notes to Pharmacist: prnFurosemide 20 MG Tablet 1 tablet Orally Once a day Centrum Silver Gabapentin 300 MG Capsule 1 capsule Orally 3 times a day Losartan Potassium 100 MG Tablet 1 tablet Orally Once a day Magnesium Nebulizer Montelukast Sodium ProAir HFA Spironolactone 25 MG Tablet 1 tablet Orally Terazosin HCl 5 MG Capsule 1 capsule at bedtime Orally Once a day traMADol HCl 50 MG Tablet 1 tablet as needed Orally Once a day , Notes to Pharmacist: prnVitamin D Xarelto 20 MG Tablet 1 tablet with food Orally Once a day Ciclopirox Olamine 0.77 % Cream 1 application Externally Twice a day Taking Breyna 160-4.5 MCG/ACT Aerosol as directed Inhalation Taking Betamethasone Taking Calcium + D Taking Fioricet , Notes to Pharmacist: prnTaking Furosemide 20 MG Tablet 1 tablet Orally Once a day Taking Centrum Silver Taking Gabapentin 300 MG Capsule 1 capsule Orally 3 times a day Taking Losartan Potassium 100 MG Tablet 1 tablet Orally Once a day Taking Magnesium Taking Nebulizer Taking Montelukast Sodium Taking ProAir HFA Taking Spironolactone 25 MG Tablet 1 tablet Orally Taking Terazosin HCl 5 MG Capsule 1 capsule at bedtime Orally Once a day Taking traMADol HCl 50 MG Tablet 1 tablet as needed Orally Once a day , Notes to Pharmacist: prnTaking Vitamin D Taking Xarelto 20 MG Tablet 1 tablet with food Orally Once a day Taking Ciclopirox Olamine 0.77 % Cream 1 application Externally Twice a day Not-Taking/PRNSymbicort 160-4.5 MCG/ACT Aerosol 2 puffs Inhalation Twice a day Medication List reviewed and reconciled with the patientNot-Taking/PRN Symbicort 160-4.5 MCG/ACT Aerosol 2 puffs Inhalation Twice a day Medication List reviewed and reconciled with the patient * Allergies:?LatexPrednisoneBe nzoinyes[Allergies Verified] Objective: * Vitals:?Ht: 4ft 11in, Wt: 15 3, BMI: 30.9, Shoe size: 7W, BP: 129/70 mm Hg, Wt- k.4 kg. * Examination: ???Dermatologic: ?VERRUCA:?Reveals a Single , multi-loculated , mosaic-patterned, round, raised, flat-topped, petechial bleeding papule(s), with cauliflower appearance and interruption of skin lines, pain to lateral compression, and size estimated at 4mm diameter, plantar Forefoot , RIGHT.? Assessment: * Assessment: 1.?Plantar wart - B07.0 (Jayleen heller)???Specify :RIGHT???2.?Right foot pain - M79.671??? Plan: * Treatment: * Procedures:?Wart Treatment:?Procedure?Verruca, as described in exam, were debrided to pin-point bleeding margins with sterile 15 surgical blade, silver nitrate chemocautery applied, recomm. immune-boosting meds such as zinc, recomm. follow up with topical chemosurgical agents, recomm. Wartstick 40 percent Salicylic acid application under occlusion as directed, Pt defers any other forms of tx - 66217.? * Procedure Codes:?51936 Wart Destruction, 1-14 * Follow Up:?prn * Images: * Sign off status: Completed true * Provider:?Bon Martinez DPM Date:?2024 Generated for Adam lux/Gregorio/Molly on:?02/11/2025 10:14 AM EDT History and Physical Notes * HPI (History of Present Illness) Category Sub-Category Detail Notes Category Not es Wart Misc: Pt accompanied b y , RAMONA, who is physically present in exam room at time of visit Pt States Last PCP Visit: Date:: 12/14/2024 Examination Category Sub-Category Detail Notes Category Not es Dermatologic VERRUCA: Reveals a Single , multi-loculated , mosaic-patterned, round, raised, flat-topped, petechial bleeding papule(s), with cauliflower appearance and interruption of skin lines, pain to lateral compression, and size estimated at 4mm diameter, plantar Forefoot , RIGHT
--- OUTSIDE RECORDS SUMMARY | 2025-02-11 10:15 | XMS_ITS ---
Author Organization [facility] sabina Columbus Address [address] [place] [address] Care Team Providers Care Vice President Business & Corporate Development Name Role Phone Beck Reyna MD Primary Care Provider Unavailab Bon Meza Unavailable [phone] Allergies Allergen (clinical drug ingredient) Drug/Non Drug Allergy documented on EMR Reaction Allergy Type Onset Date Status Benzoin Unknown Drug Allergy Active Latex Latex Unknown Allergy Active prednisone Prednisone Unknown Drug Allergy Activ e REASON FOR VISIT At Risk Footcare, Painful Nail(s) aggrevated by shoes and causing difficulty standing/walking., Wart(s) Medications Medication SIG (Take, Route, Frequency, Duration) Notes Start Date End Date Status Terazosin HCl 5 MG 1 capsule at bedtime Orally Once a day for 30 day(s) Active Spironolactone 25 MG 1 tablet Orally for 30 day(s) Active ProAir HFA Active Montelukast Sodium A ctive Nebulizer Active Furosemide 20 MG 1 tablet Orally Once a day for 30 day(s) Active Magnesium Active Losartan Potassium 100 MG 1 tablet Orall y Once a day for 30 day(s) Active Gabapentin 300 MG 1 capsule Orally 3 times a day for 30 days Active Centrum Silver Activ e Fioricet prn Active Calcium + D Active Betamethasone Active Breyna 160-4.5 MCG/ACT as directed Inhalation Active Symbicort 160-4.5 MCG/ACT 2 puffs Inhala tion Twice a day Not-Taking traMADol HCl 50 MG 1 tablet as needed Orally Once a day prn Active Ciclopirox Olamine 0.77 % 1 application Externally Twice a day for 30 days Active Xarelto 20 MG 1 tablet with food Orally Once a day for 30 day(s) Active Vitamin D Active Social History Tobacco Use: Social History Observation Description Date Details (start date - stop date) Never Smoker NA - NA Tobacco use other than smoking: Question Answer Notes Are you an other tobacco user? No Tobacco Control (Standard) Question Answer Notes Tobacco use: Nonsmoker Additional Findings: Tobacco non-user Current no nsmoker AUDIT-C (Standard) Question Answer Notes Did you have a drink contain ing alcohol in the past year? Yes How often did you have a dri nk containing alcohol in the past year? Monthly or less (1 point) How many drinks did you have on a typical day when you were drinking in the past year? Declined to specify (0 point) How often did you have six o r more drinks on one occasion in the past year? Declined to specify (0 point) Points 1 Interpretation Negative Vital Signs Height 4ft 11in in 12/17/2024 Weight 153 lbs 12/17/2024 BMI 30.9 kg/m2 12/17/2024 Blood pressure systolic 130 mm Hg 12/18/19 25 Blood pressure diastolic 66 mm Hg 025 Procedures Procedure Date Ordered Date Performed Result Body Sit e 55559-LFEDWLJ NAIL, 6 OR MORE 12/17/2024 N/A 14952-Ecsn Destruction, 1-14 12/17/2024 N/A 13309-CDLP SKIN LESIONS, OVER 4 12/17/2024 N/A Encounters Encounter Location Date Provider Diagnosis [facility] [address] [address] 12/17/2024 Bon Martinez Atherosclerosis of [place] artery of both lower extremities, with unspecified presence of clinical manifestation I70.203 ; Plantar wart B07.0 ; Tinea unguium B35.1 ; Pain in right toe(s) M79.674 ; Pain in left toe(s) M79.675 and Right foot pain M79.671 Assessments Encounter Date Diagnosis (ICD Code) Assessment Notes Treatment Notes Treatment Clinical Notes Section Notes 12/17/2024 Atherosclerosis [place] artery of both lower extremities, with unspecified presence of clinical manifestation (ICD-10 - I70.203) 12/17/2024 Plantar wart (ICD-10 - B07.0) 12/17/2024 Tinea unguium (ICD-10 - B35.1) 12/17/2024 Pain in right toe(s) (ICD-10 - M79.674) 12/17/2024 Pain in left toe(s) (ICD-10 - M79.675) 12/17/2024 Right foot pain (ICD-10 - M79.671) Plan Of Treatment Pending Test Test Name Order Date 06798-TNPBSXD NAIL, 6 OR MORE 12/17/2024 10365-Enqe Destruction, 1-14 12/17/2024 96464-XTOZ SKIN LESIONS, OVER 4 12/18/19 25 Next Appt Details Follow Up: prn, Reason: Provider Name:Bon Martinez , 02/28/2025 02:00:00 PM, [address] [facility], [place] [address], [place], [address], Provider Name:Bon Martinez , 04/18/2025 03:45:00 PM, [address] [facility], [place] [address], [place], [address], Procedure Notes * Category Sub-Category Detail Notes Wart Treatment Procedure Verruca, as desc ribed in exam, were debrided to pin-point bleeding margins with sterile 15 surgical blade, silver nitrate chemocautery applied, recomm. immune-boosting meds such as zinc, recomm. follow up with topical chemosurgical agents, Pt defers any other forms of tx - 85250 Debride Nail 6-10 Nail debridement Due to the cl inical pathology outlined in the exam findings, performance of this nail treatment is medically necessary as its management by an unskilled/untrained nonprofessional would put this patients foot and overall health at risk. Therefore, debridement to affected nail(s), as described in exam ( TA, T1, T2, T3, T4, T5, T6, T7, T8, T9 ), was performed exclusively by the physician of record to reduce/remove overall nail length, girth, thickness, subungual debris, and necrotic tissue, by manual and/or electrical means through the use of a nail nipper and/or dremel-type bone grinder, to a more viable healthy nail plate or bed tissue 6-10 nails in total. Silver nitrate was used for any petechial bleeding as necessary. Definitive antifungal treatment options, both pharmaceutical and surgical, have been reviewed and discussed with the patient. The patient solely prefers the use of intermittent/as needed professional debridement services for their nail condition and understands the need for additional periodic treatments to maintain effectiveness in symptomatic relief - 48258 Keratoma Treatment Parring or Cutting o f Benign Hyperkeratotic Lesion(s) (-57) More than 4 Lesions - Due to the at risk nature of the patients medical condition as documented in the exam findings, performance of this keratoderma treatment is medically necessary as its management by an unskilled/untrained nonprofessional would put this patients foot and overall health at risk. Therefore, the benign hyperkeratotic lesions, ( 8 ) in total, locations as stated and described in the exam ( SUB MTH (s) , 1 , B/L , SUB MTH (s) , 2 , B/L , SUB MTH (s) , 3 , B/L , Plantar, Heel(s) , B/L ), were pared, and/or cut utilizing a sterile 15 blade, tissue nippers, and/or power dremel instrumentation by the physician of record - 23439, Q8 Progress Notes * Natalia CESARDOB:1934 (89 yo F)Acc No.[id number]:12/17/2024 Progress Note Patient:?Natalia CESAR Provider:?Bon Martinez DPM :1935???Age:89 Y???Sex:Female D ate:12/17/2024 Address:[address] [place], [place] [id number] Pcp:Beck Reyna MD Subjective: * Chief Complaints: * ???At Risk FootcarePainful N ail(s) aggrevated by shoes and causing difficulty standing/walking.Wart(s) * HPI: ???At Risk footcare:?Pt States Last PCP Visit:?Date?10/29/2024 * ROS:?General/Constitutional:?Nausea?admits.?Vomiting?denies.?Hunger Thirst?denies.?Loss appetite?denies.?Chills?admits.?Fatigue?admits.?Fever?denies.?Night Sweats?admits.?Unexplained weight loss?denies.?Unexplained [...] 1973hysterectomy 1979varicose veins 1986right knee replacement 1997bunionectomy 2001, 2003left knee replacement 2002, 2004carpal tunnel surgery 2005shoulder surgery 2006Lipoma 2009hammer toe 2010cataract surgery 2012, 2016knee surgery, right 2014vascular surgery 2015wrist surgery 2014Hand Surgery 2017arm 2018laser surgery, vascular 2020tooth implant, 2 11/2023 * Hospitalization/Major Diagno stic Procedure:?[facility]- missed step, fell, stitches on elbow 04/10/24 * Family History:?Mother: dece ased, diagnosed with Unspecified essential hypertension, Unspecified heart disease, Family history of arthritis.?Father: , diagnosed with Other malignant neoplasm of unspecified site, Unspecified cerebral artery occlusion with cerebral infarction, Family history of arthritis.? * Social History:?Tobacco Use:?Tobacco use other than smoking?Are you an other tobacco user??No ?Tobacco Control (Standard)?Tobacco use:?Nonsmoker ?Additional Findings: Tobacco non-user?Current nonsmoker ???Drugs/Alcohol:?Drugs?Have you used drugs other than those for medical reasons in the past 12 months??No ???Miscellaneous:?Caffeine: yes, 1-2 cups per day. ?Children: yes, 1. ?Marital status: . ?Occupation: Retired. ???Drug/Alcohol:?AUDIT-C (Standard)?Did you have a drink containing alcohol in the past year??Yes ?How often did you have a drink containing alcohol in the past year??Monthly or less (1 point) ?How many drinks did you have on a typical day when you were drinking in the past year??Declined to specify (0 point) ?How often did you have six or more drinks on one occasion in the past year??Declined to specify (0 point) ?Points?1 ?Interpretation?Negative * Medications:?TakingBreyna 16 0-4.5 MCG/ACT Aerosol as [...] 3, BMI: 30.9, Shoe size: 7W, BP: 130/66 mm Hg, Wt- k.4 kg. * Examination: ???Vascular: ?DP PULSES (B):?0/4 , RIGHT , 1/4 , LEFT.?PT PULSES (B):? 0/4, B/L.?CAPILLARY FILL TIME:? delayed, all digits, B/L.?TROPHIC CONDITION-TEXTURE/ELASTICITY/TURGOR/HAIR GROWTH (B):? decreased, B/L.?TEMPERTURE GRADIENT (C):? decreased, cool to cool, proximal to distal, B/L.?PIGMENTATION:?rubrous, B/L.?EDEMA (C):?4/4 , pitting , without aching pain , Leg(s) , Ankle(s) , Foot , B/L - Pt states normally wears compression stockings but refrained today due to appt.?CLAUDICATION (C):?denies, B/L.?REST PAIN:?denies, B/L.?Nails: ?NAILS are:? Elongated, overgrown, dystrophic, lytic, greater than 3mm thick, discolored and friable with crumbly malodorous subungual debris, with pain on palpation,?TA, T1, T2, T3, T4, T5, T6, T7, T8, T9.?Dermatologic: ?SKIN FINDINGS:?Skin exam reveals Keratotic lesion(s) located at , SUB MTH (s) , 1 , B/L , SUB MTH (s) , 2 , B/L , SUB MTH (s) , 3 , B/L , Plantar, Heel(s) , B/L.?VERRUCA:?Reveals a Single , multi-loculated , mosaic-patterned, round, raised, flat-topped, petechial bleeding papule(s), with cauliflower appearance and interruption of skin lines, pain to lateral compression, and size estimated at 4mm diameter, plantar Forefoot , RIGHT.? Assessment: * Assessment: 1.?Plantar wart - B07.0 (Jayleen arron)???Specify :RIGHT???2.?Atherosclerosis [place] artery of both lower extremities, with unspecified presence of clinical manifestation - I70.203???3.?Tinea unguium - B35.1???4.?Pain in right toe(s) - M79.674???5.?Pain in left toe(s) - M79.675???6.?Right foot pain - M79.671??? Plan: * Treatment: 2.?Atherosclerosis [place] artery of both lower extremities, with unspecified presence of clinical manifestation?Procedure: 81178-TXMU SKIN LESIONS, OVER 4 3.?Tinea unguium?Procedure: 54879-CBYHFZJ NAIL, 6 OR MORE * Procedures:?Debride Nail 6-10:?Nail debridement?Due to the clinical pathology outlined in the exam findings, performance of this nail treatment is medically necessary as its management by an unskilled/untrained nonprofessional would put this patients foot and overall health at risk. Therefore, debridement to affected nail(s), as described in exam (?TA, T1, T2, T3, T4, T5, T6, T7, T8, T9?), was performed exclusively by the physician of record to reduce/remove overall nail length, girth, thickness, subungual debris, and necrotic tissue, by manual and/or electrical means through the use of a nail nipper and/or dremel-type bone grinder, to a more viable healthy nail plate or bed tissue 6- 10 nails in total. Silver nitrate was used for any petechial bleeding as necessary. Definitive antifungal treatment options, both pharmaceutical and surgical, have been reviewed and discussed with the patient. The patient solely prefers the use of intermittent/as needed professional debridement services for their nail condition and understands the need for additional periodic treatments to maintain effectiveness in symptomatic relief - 29931.?Keratoma Treatment:?Parring or Cutting of Benign Hyperkeratotic Lesion(s)?(-57) More than 4 Lesions - Due to the at risk nature of the patients medical condition as documented in the exam findings, performance of this keratoderma treatment is medically necessary as its management by an unskilled/untrained nonprofessional would put this patients foot and overall health at risk. Therefore, the benign hyperkeratotic lesions, ( 8 ) in total, locations as stated and described in the exam (?SUB MTH (s)?,?1?,?B/L?,?SUB MTH (s)?,?2?,?B/L?,?SUB MTH (s)?,?3?,?B/L?,?Plantar,?Heel(s)?,?B/L?), were pared, and/or cut utilizing a sterile 15 blade, tissue nippers, and/or power dremel instrumentation by the physician of record - 99107, Q8.?Wart Treatment:?Procedure?Verruca, as described in exam, were debrided to pin-point bleeding margins with sterile 15 surgical blade, silver nitrate chemocautery applied, recomm. immune-boosting meds such as zinc, recomm. follow up with topical chemosurgical agents, Pt defers any other forms of tx - 61052.? * Procedure Codes:?51889 DEBRI DE NAIL, 6 OR MORE, Modifiers: XS 01272 Wart Destruction, 1-14, Modifiers: XS 33194 TRIM SKIN LESIONS, OVER 4, Modifiers: XS , Q8 * Follow Up:?prn * Images: * Sign off status: Completed true * Provider:?Bon Martinez DPM Date:?2024 Generated for Adam lux/Gregorio/eTransmlianet on:?02/11/2025 10:15 AM EDT History and Physical Notes * HPI (History of Present Illness) Category Sub-Category Detail Notes Category Not es At Risk footcare Pt States Last PCP Visit: Date: 5 Examination Category Sub-Category Detail Notes Category Not es Dermatologic SKIN FINDINGS: Skin exam reveal s Keratotic lesion(s) located at , SUB MTH (s) , 1 , B/L , SUB MTH (s) , 2 , B/L , SUB MTH (s) , 3 , B/L , Plantar, Heel(s) , B/L VERRUCA: Reveals a Single , m ulti-loculated , mosaic-patterned, round, raised, flat-topped, petechial bleeding papule(s), with cauliflower appearance and interruption of skin lines, pain to lateral compression, and size estimated at 4mm diameter, plantar Forefoot , RIGHT Vascular DP PULSES (B): 0/4 , RIGHT , 1/4 , LEFT PT PULSES (B): 0/4, B/L CAPILLARY FILL TIME: delayed, all digits , B/L TEMPERTURE GRADIENT (C): decreased, cool to cool, proximal to distal, B/L TROPHIC CONDITION-TEXTURE/ELASTICITY/TURGOR/HAIR GROWTH (B): decreased, B/L EDEMA (C): 4/4 , pitting , with out aching pain , Leg(s) , Ankle(s) , Foot , B/L - Pt states normally wears compression stockings but refrained today due to appt CLAUDICATION (C): denies, B/L REST PAIN: denies, B/L PIGMENTATION: rubrous, B/L Nails NAILS are: Elongated, overg rown, dystrophic, lytic, greater than 3mm thick, discolored and friable with crumbly malodorous subungual debris, with pain on palpation, TA, T1, T2, T3, T4, T5, T6, T7, T8, T9
--- OUTSIDE RECORDS SUMMARY | 2025-02-11 10:15 | XMS_ITS ---
Author Organization [facility] Address [address] [place] [address] Care Team Providers Care Home Economics Extension Worker Name Role Phone Axel JACOBO, Beck Primary Care Provider Unavailab Duke Cortez Unavailable [phone] REASON FOR VISIT rectal bleeding,fecal soiling Encounters Encounter Location Date Provider Diagnosis [facility] [address] [place], [place] [id number] 12/06/2024 Duke Whitley Rectal mass K62.9 and [...] Notes * JAN NAVARRETEDOB:[birth year] (89 yo F)Acc No.[id number]:12/06/2024 COLON WITH MAC Patient:?JAN NAVARRETE Provider:?Duke Whitley MD :1935???Age:89 Y???Sex:Female D ate:12/06/2024 Address:[address] [place], [place] [id number] Pcp:Beck Reyna MD Subjective: * Chief Complaints: * ???1. Rectal bleeding,fecal soiling. * Medical History:? Objective: * Vitals:? Assessment: * Assessment: 1.?Rectal mass - K62.9 (Prim osmany)???2.?Diverticulosis of large intestine without perforation or abscess without bleeding - K57.30??? Plan: * Treatment: * Procedure Codes:?96006 COLON OSCOPY AND BIOPSY, 0529F INTRVL 3+YRS PTS CLNSCP DOCD, 0528F RCMND FLW-UP 10 YRS DOCD, Modifiers: 1P * * The named appointment provid er may or may not be the originator of this progress note, and it is not deemed complete until electronically signed by the appointment provider. Sign off status: Pending * Provider:?Duke Whitley MD Date:? 025 Generated for Adam lux/Gregorio/eTransmitting on:?02/11/2025 10:14 AM EDT
--- OUTSIDE RECORDS SUMMARY | 2025-02-11 10:15 | XMS_ITS | Patient Health Record ---
Author Organization [facility] Address [address] [place] [address] Care Team Providers Care Director College Name Role Phone Axel JACOBO, Beck Primary Care Provider Unavailab Bon Meza Unavailable [phone] Allergies Allergen (clinical drug ingredient) Drug/Non Drug Allergy documented on EMR Reaction Allergy Type Onset Date Status Benzoin Unknown Drug Allergy Active Latex Latex Unknown Allergy Active prednisone Prednisone Unknown Drug Allergy Activ e Reason For Referral No Information Medications Medication SIG (Take, Route, Frequency, Duration) Notes Start Date End Date Status Nebulizer Active Magnesium Active Losartan Potassium 100 MG 1 tablet Orall y Once a day for 30 day(s) Active Symbicort 160-4.5 MCG/ACT 2 puffs Inhala tion Twice a day Not-Taking Gabapentin 300 MG 1 capsule Orally 3 times a day for 30 days Active Ciclopirox Olamine 0.77 % 1 application Externally Twice a day for 30 days Active Xarelto 20 MG 1 tablet with food Orally Once a day for 30 day(s) Active Centrum Silver Activ e Furosemide 20 MG 1 tablet Orally Once a day for 30 day(s) Active Vitamin D Active Fioricet prn Active traMADol HCl 50 MG 1 tablet as needed Orally Once a day prn Active Calcium + D Active Terazosin HCl 5 MG 1 capsule at bedtime Orally Once a day for 30 day(s) Active Betamethasone Active Spironolactone 25 MG 1 tablet Orally for 30 day(s) Active Breyna 160-4.5 MCG/ACT as directed Inhalation Active ProAir HFA Active Montelukast Sodium A ctive Social History Tobacco Use: Social History Observation [...] specify (0 point) Points 1 Interpretation Negative Problems Problem Type SNOMED Code ICD Code Onset Dates Problem Status W/U Status Risk Notes Problem Plantar wart (68902592) Plantar wart (B07.0) Active confirmed Problem Atherosclerosis of [place] arteries of the extremities (769261328409041) Atherosclerosis of [place] artery of both lower extremities, with unspecified presence of clinical manifestation (I70.203) Active confirmed Vital Signs Blood pressure diastolic 70 mm Hg 01/23/2025 Height 4ft 11in in 01/23/2025 Blood pressure systolic 129 mm Hg 01/23/2025 Weight 153 lbs 01/23/2025 BMI 30.9 kg/m2 01/23/2025 Procedures Procedure Date Ordered Date Performed Result Body Sit e 67594-XNHCMUE NAIL, 6 OR MORE 04/11/2024 N/A 26686-Cijo Destruction, 1-04/11/2024 N/A 03228-DMJP SKIN LESIONS, OVER 4 04/11/2024 N/A 74883-Ggsa Destruction, 1-14 05/23/2024 N/A 21214-IGZOHMZ NAIL, 6 OR MORE 07/23/2024 N/A 76367-Eiey Destruction, 1-14 07/23/2024 N/A 82499-KQVH SKIN LESIONS, OVER 4 07/23/2024 N/A 93685-Fqbk Destruction, -14 08/29/2024 N/A 70364-MZFTXFW NAIL, 6 OR MORE 10/08/2024 N/A 26896-Smje Destruction, 1-14 10/08/2024 N/A 18033-YWJX SKIN LESIONS, OVER 4 10/08/2024 N/A 18954-Ohlo Destruction, 1-14 11/12/2024 N/A 68980-MSUYCSI NAIL, 6 OR MORE 12/17/2024 N/A 74333-Aufw Destruction, 1-12/17/2024 N/A 91811-JTUT SKIN LESIONS, OVER 4 12/17/2024 N/A 75449-Eqjr Destruction, 1-01/23/2025 N/A Encounters Encounter Location Date Provider Diagnosis [address] [address] 04/11/2024 Bon Martinez Atherosclerosis of [place] artery of both lower extremities, with unspecified presence of clinical manifestation I70.203 ; Plantar wart B07.0 ; Tinea unguium B35.1 ; Pain in right toe(s) M79.674 ; Pain in left toe(s) M79.675 ; Right foot pain M79.671 and Tinea pedis of both feet B35.[address] [address] 05/23/2024 Bonterrence Sheltonier Plantar wart B07.0 ; Right foot pain M79.671 and Tinea pedis of both feet B35.[address] [address] 07/23/2024 Bon Martinez Atherosclerosis of [place] artery of both lower extremities, with unspecified presence of clinical manifestation I70.203 ; Plantar wart B07.0 ; Tinea unguium B35.1 ; Pain in right toe(s) M79.674 ; Pain in left toe(s) M79.675 and Right foot pain M79.[address] [address] 08/29/2024 Bon Michelle Plantar wart B07.0 a nd Right foot pain M79.[address] [address] 10/08/2024 Bon Martinez Atherosclerosis of [place] artery of both lower extremities, with unspecified presence of clinical manifestation I70.203 ; Plantar wart B07.0 ; Tinea unguium B35.1 ; Pain in right toe(s) M79.674 ; Pain in left toe(s) M79.675 and Right foot pain M79.671 [facility] [address] [address] 11/12/2024 Bon Martinez Plantar wart B07.0 a nd Right foot pain M79.671 [facility] [address] [address] 12/17/2024 Bon Martinez Atherosclerosis of [place] artery of both lower extremities, with unspecified presence of clinical manifestation I70.203 ; Plantar wart B07.0 ; Tinea unguium B35.1 ; Pain in right toe(s) M79.674 ; Pain in left toe(s) M79.675 and Right foot pain M79.[address] [address] 01/23/2025 Bon Martinez Plantar wart B07.0 a nd Right foot pain M79.[address] [address] 11/12/2024 Bon Martinez [address] [address] 12/17/2024 Bon Martinez Assessments Encounter Date Diagnosis (ICD Code) Assessment Notes Treatment Notes Treatment Clinical Notes Section Notes 04/11/2024 Plantar wart (ICD-10 - B07.0) 04/11/2024 Atherosclerosis of [place] artery of both lower extremities, with unspecified presence of clinical manifestation (ICD-10 - I70.203) 05/23/2024 Plantar wart (ICD-10 - B07.0) 05/23/2024 Right foot pain (ICD-10 - M79.671) 07/23/2024 Plantar wart (ICD-10 - B07.0) 07/23/2024 Atherosclerosis of [place] artery of both lower extremities, with unspecified presence of clinical manifestation (ICD-10 - I70.203) 08/29/2024 Plantar wart (ICD-10 - B07.0) 08/29/2024 Right foot pain (ICD-10 - M79.671) 10/08/2024 Plantar wart (ICD-10 - B07.0) 10/08/2024 Atherosclerosis of [place] artery of both lower extremities, with unspecified presence of clinical manifestation (ICD-10 - I70.203) 11/12/2024 Plantar wart (ICD-10 - B07.0) 11/12/2024 Right foot pain (ICD-10 - M79.671) 12/17/2024 Plantar wart (ICD-10 - B07.0) 12/17/2024 Atherosclerosis of [place] artery of both lower extremities, with unspecified presence of clinical manifestation (ICD-10 - I70.203) 01/23/2025 Plantar wart (ICD-10 - B07.0) 01/23/2025 Right foot pain (ICD-10 - M79.671) 12/17/2024 Tinea unguium (ICD-10 - B35.1) 10/08/2024 Tinea unguium (ICD-10 - B35.1) 07/23/2024 Tinea unguium (ICD-10 - B35.1) 05/23/2024 Tinea pedis of both feet (ICD-10 - B35.3) 04/11/2024 Tinea unguium (ICD-10 - B35.1) 04/11/2024 Pain in right toe(s) (ICD-10 - M79.674) 07/23/2024 Pain in right toe(s) (ICD-10 - M79.674) 10/08/2024 Pain in right toe(s) (ICD-10 - M79.674) 12/17/2024 Pain in right toe(s) (ICD-10 - M79.674) 10/08/2024 Pain in left toe(s) (ICD-10 - M79.675) 12/17/2024 Pain in left toe(s) (ICD-10 - M79.675) 07/23/2024 Pain in left toe(s) (ICD-10 - M79.675) 04/11/2024 Pain in left toe(s) (ICD-10 - M79.675) 04/11/2024 Right foot pain (ICD-10 - M79.671) 07/23/2024 Right foot pain (ICD-10 - M79.671) 12/17/2024 Right foot pain (ICD-10 - M79.671) 10/08/2024 Right foot pain (ICD-10 - M79.671) 04/11/2024 Tinea pedis of both feet (ICD-10 - B35.3) Plan Of Treatment Pending Test Test Name Order Date 11303-NJBVYWE NAIL, 6 OR MORE 10/20/2023 36947-NJUYCWN NAIL, 6 OR MORE 01/11/2024 73863-JXOULLC NAIL, 6 OR MORE 04/11/2024 91909-VVIXUIK NAIL, 6 OR MORE 07/23/2024 96842-QGHHMXI NAIL, 6 OR MORE 10/08/2024 19763-MYPKORB NAIL, 6 OR MORE 12/17/2024 23357-Gulb Destruction, 1-14 12/17/2024 22321-Hslo Destruction, 1-14 08/29/2024 44015-Jcbv Destruction, 1-14 11/12/2024 28135-Nzzq Destruction, 1-14 10/08/2024 91077-Qqnv Destruction, 1-14 07/23/2024 52212-Rfkc Destruction, 1-14 04/11/2024 95111-Ihiq Destruction, -14 11/30/2023 12126-Gdhp Destruction, -14 05/23/2024 04434-Pskg Destruction, -14 01/11/2024 45937-Dezx Destruction, 1-14 10/20/2023 23268-Jdbe Destruction, 1-14 01/23/2025 82568-DWCH SKIN LESIONS, OVER 4 10/20/19 24 72725-HKER SKIN LESIONS, OVER 4 01/11/20 24 78942-EEFK SKIN LESIONS, OVER 4 04/11/20 24 12457-LBXB SKIN LESIONS, OVER 4 07/23/20 24 89928-NMIT SKIN LESIONS, OVER 4 10/08/19 95179-XNFU SKIN LESIONS, OVER 4 12/18/19 Next Appt Details Provider Name:Bon Martinez , 02/28/2025 02:00:00 PM, [address], [address], [place], [address], Provider Name:Bon Martinez , 04/18/2025 03:45:00 PM, [address], [place], [address], Insurance Providers Payer Name Payer Address Payer Phone Subscriber Number Group Number Insured Name Patient Relationship to Insured Coverage Start Date Coverage End Date Medicare [employer] [address] [place] [id number] [id number] [place] s, Natalia Self - patient is the insured [employer] [address] [place] [address] [id number] [place] s, Natalia Self - patient is the insured Medical (General) History Medical History History ICD Code Arthritis asthma Anemia Back,Hip,and Knee pain Broken bones Cataracts Diverticulitis Headaches/Migraines High blood pressure Numbness Osteoporosis Sciatica Vascular phlebitis (clots) Measles Joint implants/screws Bone implants/screws Transfusions Surgical History Surgery Date(Month/Year) 1971 lung surgery, blood clot, partial remova l 1973 hysterectomy 1979 varicose veins 1986 right knee replacement 1997 bunionectomy 2001, 2003 left knee replacement 2002, 2004 carpal tunnel surgery 2005 shoulder surgery 2006 Lipoma 2009 hammer toe 2010 cataract surgery 2012, 2016 knee surgery, right 2014 vascular surgery 2015 wrist surgery 2014 Hand Surgery 2017 arm 2018 laser surgery, vascular 2020 tooth implant, 2 11/2023 Hospitalization History Reason Date(Month/Year) Christyy- missed step, fell, stitches on el bow 04/10/24
--- OUTSIDE RECORDS SUMMARY | 2025-02-11 10:15 | XMS_ITS ---
Author Organization [facility] Address [address] [place] [address] [place] [address] Care Team Providers Care Vp Rheumatology Name Role Phone Beck Reyna MD Primary Care Provider Unavailab Bon Meza Unavailable [phone] REASON FOR VISIT [employer] OTs size A Encounters Encounter [facility] Date [facility] [address] [facility]/17/[facility] Bon Martinez Plan Of Treatment Next Appt Details Provider Name:Bon Martinez , 02/28/2025 02:00:00 PM, [address] [place] [address], [phone], Provider Name:Bon Martinez , 04/18/2025 03:45:00 PM, [address] [place] [address], [phone], Progress Notes * Natalia CESARDOB:1934 (89 yo F)Acc No.[id number]:12/17/2024 Patient:?Natalia CESAR :1935???Age:89 Y???Sex:Female Address:[address] [place] [address], [address] * true * Date:? Generated for Printi ng/Fatjg/eTransmitting on:?02/11/2025 10:15 AM EDT
--- OUTSIDE RECORDS SUMMARY | 2025-02-11 10:15 | XMS_ITS | Patient Health Record ---
Author Organization [facility] Address [address] [place] [address] Care Team Providers Care Beader Name Role Phone Axel JACOBO, Beck Primary Care Provider Unavailab [facility] [phone] Allergies Allergen (clinical drug ingredient) Drug/Non Drug Allergy documented on EMR Reaction Allergy Type Onset Date Status Latex Gloves Unknown Drug Allergy Acti ve PredniSONE Unknown Drug Allergy Active cats (uncoded) Unknown Allergy Activ e bees (uncoded) Unknown Allergy Activ e Results Component Value Reference Range Notes Pathology (Not yet reviewed by provider) Interpretation: Performing Lab:[facility], [address] [place] [address] Notes/Report: Name: Alesia Beverly Age/Sex: 89/F : 1935 Unit#: [id number] Attend Dr: Duke Whitley MD Re12/06/24 Status : [facility] Location: [facility] Disch: SPEC : [id number] RECD : 12/06/24 STATUS: JV CAMARGO NUM: [id number] SILVANA: 12/06/[address] [facility] [address]: Duke Whitley MD ENTERED: 12/06/24 49 SP TYPE: Surgical OTHR DR: Beck Reyna MD ORDERED: HE Stain/3, Gross Micro L4 Diagnosis Rectum, distal mass, biopsy: Fragments of tubulovillous adenoma; negative for high-grade dysplasia or carcinoma. Comment: These resul ts may not be entirely contracts representative of the mass; a more worrisome unsampled lesion can not be ruled out. Clinical History Pre-Op Dx: Hemorrhag e of anus and rectum, fecal smearing Post-Op Dx: Divertic ulosis, rectal mass Microscopic Description Microscopic sections reviewed. Material Received Bx's distal rectal mass Gross Description Received in formalin labeled ?bx's distal rectal mass? are multiple alfonso irregular tissue fragments ranging fr om minute 0.25 cm, submitted in toto in a cassette labeled A. CEDS This case was review ed intradepartmentally. Copies To: Beck Reyna MD [address] [place] [address] [address] [place] [address] Duke Whitley MD [facility] [address] [place] [address] [address] [place], [place] [id number] Signed (si gnature on file) Harry Fox MD 12/07/24 1431 END OF REPORT Reason For Referral No Information Medications Medication SIG (Take, Route, Frequency, Duration) Notes Start Date End Date Status Magnesium 27 Active traMADol HCl 50 MG 1 tablet as needed Orally Once a day Active Centrum Adult - as directed Orally Active Betamethasone Dipropionate Active Breyna 80-4.5 MCG/ACT as directed Inhalation Active Gabapentin 300 MG 1 capsule Orally Onc e a day for 30 day(s) Active Montelukast Sodium 10 MG 1 tablet Orally Once a day for 30 day(s) Active ProAir HFA Active Spironolactone 50 MG 1 tablet Orally Onc e a day for 30 day(s) Active Furosemide 20 MG 1 tablet Orally Once a day for 30 day(s) Active Losartan Potassium-HCTZ 100-25 MG 1 tablet Orally Once a day for 30 day(s) Active Calcium & Vit D3 Bone Health - as directed Orally Active Advair Diskus 250/50 Active Calcium 600 MG 1 tablet with meals Orally Twice a day Active Immunizations Vaccine Route Administration Date Status Comme nts Influenza Unknown 07/24/2024 Administered Problems Problem Type SNOMED Code ICD Code Onset Dates Problem Status W/U Status Risk Notes Problem Rectal bleeding (35483575) Rectal bleeding (K62.5) Active confirmed Problem Fecal soiling (386515061) Fecal soiling (R15.1) Active confirmed Vital Signs Temperature 97.9 degrees Fahrenheit 11/07/2024 Blood pressure diastolic 00 mm Hg 11/07/2024 Height 59 in 11/07/2024 Blood pressure systolic 000 mm Hg 11/07/2024 Weight 156 lbs 11/07/2024 BMI 31.50 kg/m2 11/07/2024 Encounters Encounter Location Date Provider Diagnosis [facility] [address] [place], [place] [id number] 12/06/2024 Duke Whitley Rectal mass K62.9 an d Diverticulosis of large intestine without perforation or abscess without bleeding K57.30 [facility] [address] [place] [address] 11/07/2024 Duke Whitley Rectal bleeding K62. 5 and Fecal soiling R15.1 [facility] [address] [place] [address] 12/09/2024 Duke Whitley Assessments Encounter Date Diagnosis (ICD Code) Assessment Notes Treatment Notes Treatment Clinical Notes Section Notes 12/06/2024 Diverticulosis of large intestine without perforation or abscess without bleeding (ICD-10 - K57.30) 12/06/2024 Rectal mass (ICD-10 - K62.9) 11/07/2024 Rectal bleeding (ICD-10 - K62.5) Stop Xarelto for 2 days before the colonoscopy Do not take the Furosemide and Spironolactone the day before nor on the day of the ciolonoscopy Need clearance from your Special Class Welder, Dr. Cuello Overall, Jan appears quite well given her age. We did review that her current symptoms may very well be reflective of some perianal disease such as hemorrhoids. Nonetheless she is quite concerned about them, particularly in regard to the bleeding. Therefore, given the reported bleeding, her last colonoscopy being well over 10 years ago, and her good clinical appearance despite her age of 89 with some medical issues, I did recommend a colonoscopy for evaluation to rule out any other issues such as polyps or neoplasms. The procedure will be done with monitored anesthesia care. She was given the below instructions regarding the adjustment of her medications for the procedure. Given her upcoming cardiac tests we shall obtain clearance from her garage manager prior to the procedure. Jan was quite comfortable with this plan and was eager to find out the cause of her bleeding Thank you again for allowing me to participate in Jan'a care. I shall continue to keep you advised of her progress. 11/07/2024 Fecal soiling (ICD-10 - R15.1) Overall, Jan appears quite well given her age. We did review that her current symptoms may very well be reflective of some perianal disease such as hemorrhoids. Nonetheless she is quite concerned about them, particularly in regard to the bleeding. Therefore, given the reported bleeding, her last colonoscopy being well over 10 years ago, and her good clinical appearance despite her age of 89 with some medical issues, I did recommend a colonoscopy for evaluation to rule out any other issues such as polyps or neoplasms. The procedure will be done with monitored anesthesia care. She was given the below instructions regarding the adjustment of her medications for the procedure. Given her upcoming cardiac tests we shall obtain clearance from her garage manager prior to the procedure. Jan was quite comfortable with this plan and was eager to find out the cause of her bleeding Thank you again for allowing me to participate in Jan'a care. I shall continue to keep you advised of her progress. Plan Of Treatment Pending Test Test Name Order Date Pathology 12/06/2024 Future Test Test Name Order Date COLONOSCOPY 11/07/2024 Insurance Providers Payer Name Payer Address Payer Phone Subscriber Number Group Number Insured Name Patient Relationship to Insured Coverage Start Date Coverage End Date MEDICARE OF [place] [address] [place] [address] [id number] JAN BEVERLY Self - patient is the insured [employer] CLAIMS [address] [place] [address] [id number] JAN BEVERLY Self - patient is the insured Medical (General) History Medical History History ICD Code surveillance colonoscopy 03-04--no polyps, but did reveal moderate diverticulosis in the sigmoid and descending colon, as well as small internal hemorrhoids Tubular adenomas removed in 2005 GERD--EGD 01-14-2006-revealed a moderate size hiatal hernia, but no esophagitis nor Gardner's esophagus hypertension osteoporosis asthma Atrial fibrillation Denies [place],DM, CVA,renal disease she describes having been tr eated for diverticulitis with outpatient antibiotics June 2011 and in January of 2013--she did have a CAT scan of the abdomen in January 2013 at [facility]--the report describes some diverticulosis but without diverticulitis, but does describe some mild wall thickening with in a loop of small bowel in the right lower quadrant recurrent sigmoid diverticul itis seen on CAT scan in December of 2013-this was treated with outpatient Cipro and Flagyl with good results She sees her garage manager, Linda Cuello--- she is scheduled for an upcoming nuclear stress test and echocardiogram for November of 2024 Surgical History Surgery Date(Month/Year) EMBER total right knee replacement in 1996-going to have another right knee replacement on 01/01/[address] Gomez at [facility] foot surgery removal of 2/3 of her right lung in the s for for a blood clot. carpal tunnel release-both hands shoulder surgery cataract-lens implants-left Left knee replacement in 2004 blood clot surgery right lung 1973 partial right lung removal 1973 hysterectomy 1979 varicose veins left leg 1986 left foot bunion 2002 right foot bunion 2003 right hand carpal tunnel 2005 left hand carpal tunnel 2005 right shoulder repair 2006 left leg large lipoma removal 2006 hammer toe 2009 left eye cataract 2012 right knee implant revision 2014 left leg laser 2015 right leg laser 2015 wrist surgery 2014 right eye cataract and implant 2016 left arm 2018 broken arm 2020 laser both legs 2020
--- OUTSIDE RECORDS SUMMARY | 2025-02-11 10:16 | XMS_ITS ---
Author Organization [facility] Address [address] [place] [address] Care Team Providers Care Embedded Software Programmer Name Role Phone Axel JACOBO, Beck Primary Care Provider Unavailab [facility] [phone] REASON FOR VISIT INCONTINENCE, BLEEDING RECTALLY Encounters Encounter Location Date Provider Diagnosis [facility] [address] [place], [place] [address] [place] [address] 11/07/2024 Duke Whitley Plan Of Treatment No Information Progress Notes * JAN NAVARRETEDOB:[birth year] (89 yo F)Acc No.[id number]:11/07/2024 Progress Notes Patient:?JAN NAVARRETE Provider:?Duke Whitley MD :1935???Age:89 Y???Sex:Female D ate:11/07/2024 Address:[address] [place], [place] [address] Pcp:Beck Reyna MD Subjective: * Chief Complaints: * ???1. INCONTINENCE, BLEEDING RECTALLY. * Medical History:? Objective: * Vitals:? Assessment: Plan: * Treatment: * * The named appointment provid er may or may not be the originator of this progress note, and it is not deemed complete until electronically signed by the appointment provider. Sign off status: Pending * Provider:?Duke Whitley MD Date:? 025 Generated for Adam lux/Gregorio/eTransmitting on:?02/11/2025 10:15 AM EDT
--- OUTSIDE RECORDS SUMMARY | 2025-02-11 10:16 | XMS_ITS | Clinical Summary ---
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 Active butalbital-acet aminophen-caffe ine 50-300-40 mg capsule Take by mouth. Acti ve cholecalciferol (VITAMIN D-3) 25 mcg (1,000 unit) tablet Take by mouth. Ac tive gabapentin (NEURONTIN) 300 mg capsule Take 1 capsule (300 mg total) by mouth 2 (two) times a day. Active losartan (COZAAR) 100 mg tablet Take 1 tablet (100 mg total) by mouth 1 (one) time each day. 1 Active montelukast (SINGULAIR) 10 mg tablet Take 1 tablet (10 mg total) by mouth at bedtime. Active terazosin (HYTRIN) 5 mg capsule Take 1 capsule (5 mg total) by mouth at bedtime. Active traMADoL (ULTRAM) 50 mg tablet Take 1 tablet (50 mg total) by mouth every 6 (six) hours if needed. Active multivit-min/fo lic acid/lutein (CENTRUM SILVER ORAL) Take by mouth. Activ e magnesium 250 mg tablet Take 1 tablet by mouth 1 (one) time each day. Active calcium carbonate-vitam in D 500 mg-5 mcg (200 unit) per tablet Take by mouth 1 (one) time each day. 1200mg daily Active furosemide (LASIX) 20 mg tabletIndicatio ns:Chronic diastolic heart failure (CMS/HCC V24, CMS/HCC V28),Varicose veins of both legs with edema Take 1 tablet (20 mg total) by mouth 1 (one) time each day. Take an extra tablet once daily as needed for increased lower extremity swelling-pleas e notify the office first. 135 each 1 5 Active spironolactone (ALDACTONE) 25 mg tabletIndicatio ns:Chronic diastolic heart failure (CMS/HCC V24, CMS/HCC V28) Take 1 tablet (25 mg total) by mouth 1 (one) time each day. 90 each 1 5 Active rivaroxaban (Xarelto) 20 mg tablet TAKE 1 TABLET DAILY 90 tablet 2 5 Active Active Problems Problem Noted Date Diagnosed Date Atrial septal aneurysm 01/03/2025 Assessment & Plan (01/06/2025 7:44 PM EDT): Highly mobile atrial septal aneurysm noted on recent echocardiogram; she has no known history of PFO. Given her advanced age, she would not meet criteria for repair; the only management that would be indicated if this were present, would be consideration for anticoagulation which she is already on secondary to her history of paroxysmal atrial fibrillation. No further investigation warranted with bubble study at this time. Chest pain 10/26/2024 Assessment & Plan (10/26/2024 2:59 PM EST): The patient has had 2 episodes of somewhat atypical chest pain occurring at rest; she is able to exert herself without any exertional symptoms. These episodes were quite concerning to her. She has baseline shortness of breath that she believes is solely related to her underlying pulmonary disease and responds well to therapies prescribed for her asthma, but it is questionable whether there is a component of this that is an anginal equivalent. To be prudent, she is amenable to undergoing an ischemic workup with a regadenoson nuclear stress test for further evaluation. She does not have any wheezing on exam today and is aware to bring her as needed albuterol with her to the stress test. The patient was advised to seek emergent medical attention by calling 911 if they were to develop severe dyspnea, chest pain that did not resolve with rest, or if they were to faint. Orders: Nuclear stress test with myocardial perfusion; Future Displaced fracture of shaft of fifth metacarpal bone, left hand, initial encounter for closed fracture 02/29/2024 Asthma-COPD overlap syndrome ([facility] V24, CMS/H CC V28) 11/28/2023 Secondary hypercoagulable state ([facility] V24) Assessment & Plan (01/06/2025 7:44 PM EDT): Assessment & Plan (10/26/2024 8:30 AM EST): Absence of lobe of lung 11/28/2023 EGAN (dyspnea on exertion) 08/04/2022 Overview (08/28/2024): Last Assessment & Plan: As above; followed by pulmonology for history of COPD/asthma overlap syndrome. 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 Shortness of breath on exertion may be multifactorial including causes related to pulmonary and cardiac disease as well as deconditioning and obesity. We will continue to readdress this as needed. Assessment & Plan (10/26/2024 2:59 PM EST): As above; she is aware to seek urgent medical attention for any shortness of breath that does not resolve as she would typically expect or with her treatments prescribed for her underlying pulmonary disease. She will continue follow-up with Dr. Patel, her generator technician, as recommended. Diastolic heart failure ([facility] V24, [facility] V2 8) 07/13/2021 Overview (08/28/2024): Last Assessment & Plan: Patient presents today reporting shortness of breath on exertion as well as bilateral lower extremity edema; she does appear on exam today and has other causes that could be contributing to the symptoms. She reports chronic bilateral lower extremity swelling and she states this is unchanged today. She has a history of surgery on her varicose veins in the past by Dr. Russell; she was recently seen by vascular surgery again who offered no concerns. She normally wears compression stockings which do not provide much relief, but she states that in the morning her legs are much less swollen than they are by the end of the day. She does try to elevate them which she reports does help some. She reports a low-sodium diet typically; she has eaten things higher in sodium more recently and did not realize this until we had our discussion today. She will be more careful of this going forward, checking labels on preprepared foods for sodium content. We will continue with furosemide and spironolactone at this time; we will have her recheck a BNP today and if this is elevated we may need to increase her furosemide. She also reports shortness of breath with exertion; however, this is improved greatly since adding in nebulizer and at the direction of pulmonology given her history of lung disease. Most recent echocardiogram was just performed on 10/10/2023 showing stable diastolic dysfunction with normal systolic function, EF of 60 to 65%. Her pulmonary artery systolic pressures are mildly elevated; in review of pulmonology notes, it is thought that this may be related to her history of pulmonary embolism. We will continue with ARB and MRA; she previously trialed on SGLT2 inhibitor and did not tolerate this well, and as such does not want to trial it or any other medication in the same class again. Will also continue with loop diuretic, readjusting as needed based on updated labs. I've asked the patient to call if they develop worsening symptoms of heart failure such as increased shortness of breath, new or worsening cough, increased swelling in the legs or ankles, or weight gain of more than 2 pounds in one day or 4 pounds in one week. Assessment & Plan (01/06/2025 7:44 PM EDT): The patient's most recent echocardiogram was completed 11/26/2024 showing an LVEF of 60 to 65% with grade 2 diastolic dysfunction. She remains active at home and offers no symptoms to raise concern for overt heart failure; however, on exam she does have some recently and mildly increased peripheral edema. We did discuss her history of varicose veins of bilateral lower extremities and she is wearing compression stockings on a regular basis, following a low sodium diet, and elevating her legs as able. Given her upcoming surgery, she would like to try a short course of furosemide to see if this improves her swelling. I have requested that she call the office at the conclusion of these 3 days to let us know how her swelling is doing, sooner as needed for any adverse effects. Will update a metabolic panel at the conclusion of these 3 days. We discussed risk reduction through lifestyle modifications including healthy diet, routine exercise, and weight management as well . We reviewed heart failure management including low-sodium diet, symptom surveillance, daily weights, and medication compliance. I've asked the patient to call if they develop worsening symptoms of heart failure such as increased shortness of breath, new or worsening cough, increased swelling in the legs or ankles, or weight gain of more than 2 pounds in one day or 4 pounds in one week. Orders: ECG 12 lead furosemide (LASIX) 20 mg tablet; Take 1 tablet (20 mg total) by mouth 1 (one) time each day. Take an extra tablet once daily as needed for increased lower extremity swelling-please notify the office first. spironolactone (ALDACTONE) 25 mg tablet; Take 1 tablet (25 mg total) by mouth 1 (one) time each day. Basic metabolic panel; Future Magnesium; Future Assessment & Plan (10/26/2024 2:59 PM EST): The patient presents today reporting shortness of breath that is at baseline secondary to her underlying pulmonary disease as well as bilateral lower extremity edema which she reports is also at baseline for her as a result of her varicose veins. She states that she typically wears compression stockings which help her swelling significantly; she does did not wear them today because of our visit. We will have her update some labs today including a BNP; given that she reports that these things are at baseline, she otherwise has no other worrisome findings to suggest overt heart failure on exam today. We will continue to readdress this as needed; in the interim, continue furosemide and spironolactone. She previously did not tolerate an SGLT2 inhibitor due to various vague side effects; she had been requested to try it once again once her symptoms had resolved but did not do this. We may reconsider trialing this again in the future. I've asked the patient to call if they develop worsening symptoms of heart failure such as increased shortness of breath, new or worsening cough, increased swelling in the legs or ankles, or weight gain of more than 2 pounds in one day or 4 pounds in one week. Orders: Basic metabolic panel; Future CBC and differential; Future Magnesium; Future B-type natriuretic peptide; Future Lipid panel with reflex to direct LDL; Future Transthoracic echocardiogram (TTE) complete with PRN contrast, bubble, strain, and 3D order panel; Future Paroxysmal atrial fibrillation (CMS/HCC V24, CMS /HCC V28) 07/13/2021 Overview (08/28/2024): Last Assessment & Plan: Patient's rhythm is regular today, rate well-controlled; she is anticoagulated on Xarelto. We discussed the risks and benefits of continuing with Xarelto for cardioembolic prophylaxis and she verbalizes understanding of this and wishes to continue. She is aware to seek emergent medical attention for any uncontrolled bleeding, signs or symptoms of GI or other internal bleeding, or for any head injury. Assessment & Plan (01/06/2025 7:44 PM EDT): Rate is well controlled off AV robert blocking agents. She is anticoagulated on Xarelto 20 mg daily for cardioembolic prophylaxis which is the appropriate dose for a creatinine clearance of greater than 51 according to the [place] Gault equation; we discussed the risks and benefits of continuing with anticoagulation and the patient wishes to continue with the current plan. She is aware to seek urgent medical attention for any uncontrolled bleeding, signs or symptoms of GI or other internal bleeding, or for any head injuries. Orders: ECG 12 lead Assessment & Plan (10/26/2024 2:59 PM EST): In sinus rhythm on ECG today; rate is well-controlled off any AV robert blocking agents. She remains anticoagulated on full dose Xarelto for cardioembolic prophylaxis; we will update a metabolic panel today and readdress the need for adjustment to her dosing as indicated. We discussed the risks and benefits of continuing with anticoagulation and she wishes to continue with the current plan. She is aware to seek emergent medical attention for any uncontrolled bleeding, signs or symptoms of GI or other internal bleeding, or for any head injury. Orders: ECG 12 lead CBC and differential; Future Transthoracic echocardiogram (TTE) complete with PRN contrast, bubble, strain, and 3D order panel; Future Essential hypertension 11/25/2020 Overview (08/28/2024): Last Assessment & Plan: Blood pressure is well-controlled in office today; continue spironolactone, furosemide, losartan. Assessment & Plan (01/06/2025 7:44 PM EDT): Blood pressure is slightly elevated in office today; we are adding on a short- term course of diuretic as above and as such will not make any further changes to her antihypertensive regimen. We will continue to readdress this as indicated; however, given her advanced age and aortic stenosis, we may tolerate mildly elevated blood pressures within this range. We will update labs as above. Orders: ECG 12 lead Basic metabolic panel; Future Magnesium; Future Assessment & Plan (10/26/2024 2:59 PM EST): Blood pressure is reasonable on current medical therapies; continue losartan, spironolactone, and furosemide. Orders: Basic metabolic panel; Future CBC and differential; Future Magnesium; Future Lipid panel with reflex to direct LDL; Future Transthoracic echocardiogram (TTE) complete with PRN contrast, bubble, strain, and 3D order panel; Future Nuclear stress test with myocardial perfusion; Future Nonrheumatic aortic valve stenosis 11/25/2020 Overview (08/28/2024): Last Assessment & Plan: Most recent echocardiogram 10/10/2023 revealing mild aortic stenosis; not likely contributing to her symptoms. We reviewed signs and symptoms for which she should return to care. We will continue to monitor with serial echocardiograms. Assessment & Plan (01/06/2025 7:44 PM EDT): The patient's most recent echocardiogram revealed mild aortic valve regurgitation and mild to moderate aortic stenosis and moderate TR without stenosis; there was no significant change from September 2022. The patient offers no symptoms to raise concern for deteriorating valvular function and no worsening murmur noted on exam today. We will continue to monitor this with serial echocardiograms. Assessment & Plan (10/26/2024 2:59 PM EST): The patient's shortness of breath with exertion may be in part due to her aortic valve stenosis; her most recent echocardiogram was completed 10/10/2023 showing mild aortic stenosis. We will update this echocardiogram for reevaluation and continue to readdress as needed. Worrisome signs or symptoms for which she should return to care or seek urgent medical attention were reviewed and she verbalized understanding. Orders: Transthoracic echocardiogram (TTE) complete with PRN contrast, bubble, strain, and 3D order panel; Future Obstructive sleep apnea syndrome 11/25/2020 Overview (08/28/2024): Last Assessment & Plan: The patient remains compliant with CPAP; she continues to follow with pulmonology. Varicose veins of both legs with edema Overview (08/28/2024): Last Assessment & Plan: The patient has been seen by vascular surgery, no arterial disease suspected. She does have evidence of venous insufficiency with venous stasis dermatitis and a documented history of varicosities in both legs. It is unclear if her lower extremity edema is related to this alone or whether there is a component of heart failure. We will check a BNP and readdress this as needed as below. Assessment & Plan (01/06/2025 7:44 PM EDT): Continue with conservative measures including low-sodium diet, compression stockings daily, and elevation as able. Orders: furosemide (LASIX) 20 mg tablet; Take 1 tablet (20 mg total) by mouth 1 (one) time each day. Take an extra tablet once daily as needed for increased lower extremity swelling-please notify the office first. Basic metabolic panel; Future Magnesium; Future Assessment & Plan (10/26/2024 2:59 PM EST): Continue with conservative measures including compression, elevation, and low- sodium diet; continue spironolactone and furosemide. Encounters Date Type Department Care Team Description 01/07/2025 Telephone [facility] - [address] [place] [phone] Venecia Hardy NP Leg Swelling (Leg swelling ) 01/03/2025 12:40 PM EDT Consult [facility] - [address] [place] [phone] Venecia Hardy NP Chronic diastolic heart failure (CMS/HCC V24, CMS/HCC V28) (Primary Dx); Varicose veins of both legs with edema; Atrial septal aneurysm; Essential hypertension; Nonrheumatic aortic valve stenosis; Tricuspid valve insufficiency, unspecified etiology; Paroxysmal atrial fibrillation (CMS/HCC V24, CMS/HCC V28); Secondary hypercoagulable state (CMS/HCC V24); Preoperative cardiovascular examination 12/26/2024 Telephone [facility] - [address] [place] [phone] Bobby Cuello MD clearence 12/04/2024 Telephone [facility] [address] [place] [phone] Beck Reyna MD Medical Records 11/30/2024 Telephone [facility] - [address] [place] [phone] Bobby Cuello MD Procedure (Clearance needed ) 11/26/2024 3:30 PM EST Ancillary Procedure [facility] [address] [place] [phone] Chronic diastolic heart failure (CMS/HCC V24, CMS/HCC V28); Essential hypertension; Paroxysmal atrial fibrillation (CMS/HCC V24, CMS/HCC V28); Nonrheumatic aortic valve stenosis from Last 3 Months Social History Tobacco Use Types Packs/Day Years Used Date Smoking Tobacco: Never Smokeless Tobacco: Never Alcohol Use Standard Drinks/Week Comments Yes 0 (1 standard drink = 0.6 oz pur e alcohol) WINE Comments Unknown Sex and Gender Information Value Date Recorded Sex Assigned at Not on file Legal Sex Female 3:52 PM EST Gender Identity Not on file Sexual Orientation Not on file Obstetrics History Last Filed Vital Signs Vital Sign Reading Time Taken Comments Blood Pressure 143/72 01/03/2025 12:39 PM EDT Pulse 56 01/03/2025 12:39 PM EDT Temperature - - Respiratory Rate - - Oxygen Saturation 95% 01/03/2025 12:39 PM EDT Inhaled Oxygen Concentration - - Weight 72.1 kg (159 lb) 01/03/2025 12:39 PM EDT Height 149.9 cm (4' 11 ) 01/03/2025 12:39 PM EDT Body Mass Index 32.11 01/03/2025 12:39 PM EDT Plan of Treatment Upcoming Encounters Date Type Department Care Team (Late st Contact Info) Description 05/01/2025 1:00 PM EDT Office Visit [facility] [address] [phone] Bobyb Cuello MD [address] [address] Health Maintenance Due Date Last Done Comments Pneumococcal Vaccine: 50+ Years (1 of 2 - PCV) 1956 Zoster Vaccines (1 of 2) 1987 RSV Immunization Adult Patients (1 - 1-dose 75+ series) 2012 Depression Screening 09/11/2022 Falls Risk Assessment 09/11/2022 Medicare Annual Wellness Visit 09/11/2022 Social Influencers of Health Screening 09/11/2022 COVID-19 Vaccine ( season) 2024 05/12/2022, 08/23/2021, 12/18/2020, Additional history exists Hypertension/CHF/CAD Annual BMP Blood Test 01/15/2026 01/15/2025, 01/07/2025, 10/29/2024 Osteoporosis Screening (Bone Density Screening) 01/11/2028 01/10/2018 Cholesterol Screening (Lipid Panel) 10/29/2029 10/29/2024 DTaP,Tdap,and Td Vaccines (2 - Td or Tdap) 04/10/2034 04/10/2024 Influenza Vaccine Completed 07/26/2024, , 08/05/2022, Additional history exists HIB Vaccines Aged Out No longer eligi ble based on patient's age to complete this topic HPV Vaccines Aged Out No longer eligi ble based on patient's age to complete this topic Hepatitis A Vaccines Aged Out No long er eligible based on patient's age to complete this topic Hepatitis B Vaccines Aged Out No long er eligible based on patient's age to complete this topic IPV Vaccines Aged Out No longer eligi ble based on patient's age to complete this topic MMR Vaccines Aged Out No longer eligi ble based on patient's age to complete this topic Meningococcal ACWY Vaccine Aged Out N o longer eligible based on patient's age to complete this topic Meningococcal B Vaccine Aged Out No l onger eligible based on patient's age to complete this topic RSV Immunization Patients Under 20 months Aged Out No longer eligible based on patient's age to complete this topic Varicella Vaccines Aged Out No longer eligible based on patient's age to complete this topic Procedures Procedure Name Priority Date/Time Associated Diagnosis Comments MAGNESIUM Routine 01/15/2025 9:41 AM EDT Chronic diastolic heart failure (CMS/HCC V24, CMS/HCC V28) Paroxysmal atrial fibrillation (CMS/HCC V24, CMS/HCC V28) BASIC METABOLIC PANEL Routine 01/15/2025 9:41 AM EDT Chronic diastolic heart failure (CMS/HCC V24, CMS/HCC V28) Paroxysmal atrial fibrillation (CMS/HCC V24, CMS/HCC V28) MAGNESIUM Routine 01/07/2025 9:13 AM EDT Chronic diastolic heart failure (CMS/HCC V24, CMS/HCC V28) Varicose veins of both legs with edema Essential hypertension BASIC METABOLIC PANEL Routine 01/07/2025 9:13 AM EDT Chronic diastolic heart failure (CMS/HCC V24, CMS/HCC V28) Varicose veins of both legs with edema Essential hypertension ECG 12-LEAD Routine 01/06/2025 7:46 PM EDT Chronic diastolic heart failure (CMS/HCC V24, CMS/HCC V28) Essential hypertension Paroxysmal atrial fibrillation (CMS/HCC V24, CMS/HCC V28) Preoperative cardiovascular examination TRANSTHORACIC ECHOCARDIOGRAM (TTE) COMPLETE Routine 11/26/2024 3:53 PM EST Chronic diastolic heart failure (CMS/HCC V24, CMS/HCC V28) Essential hypertension Paroxysmal atrial fibrillation (CMS/HCC V24, CMS/HCC V28) Nonrheumatic aortic valve stenosis LIPID PANEL WITH REFLEX TO DIRECT LDL Routine 10/29/2024 7:55 AM EST Chronic diastolic heart failure (CMS/HCC V24, CMS/HCC V28) Essential hypertension DANYELL DEXA AXIAL SKELETON Routine 01/10/2018 9:59 AM EDT Other specified disorders of bone density and structure, unspecified site from Last 3 Months or Most Recently Relevant to Health Maintenance Results * Magnesium (01/15/2025 9:41 AM EDT) Only the most recent of2 resultswithin the time period is included. Pathologist [facility] Magnesium 2.5 1.9 - 2.6 mg/dL LAB CHEMISTRY METHOD 01/15/2025 11:08 AM EDT [facility] Blood Venous blood specimen / Unknown Venipuncture / Unknown 01/15/2025 9:41 AM EDT 01/15/2025 10:31 AM EDT Bobby Cuello MD LAB BLOOD ORDERABLES Final Resu lt [facility] [address] [place] [address], * (ABNORMAL) Basic metabolic panel (01/15/2025 9:41 AM EDT) Only the most recent of2 resultswithin the time period is included. Pathologist [facility] Sodium 134 133 - 145 mmol/L LAB CHEMISTRY METHOD 01/15/2025 11:08 AM EDT [facility] Potassium 4.3 3.5 - 5.5 mmol/L LAB CHEMISTRY METHOD 01/15/2025 11:08 AM [facility] Chloride 99 96 - 110 mmol/L LAB CHEMISTRY METHOD 01/15/2025 11:08 AM [facility] CO2 28 21 - 32 mmol/L LAB CHEMISTRY METHOD 01/15/2025 11:08 AM [facility] Anion Gap 7 3 - 11 LAB CHEMISTRY METHOD 01/15/2025 11:08 AM [facility] Glucose 92 70 - 100 mg/dL LAB CHEMISTRY METHOD 01/15/2025 11:08 AM [facility] BUN 33(H) 5 - 25 mg/dL LAB CHEMISTRY METHOD 01/15/2025 11:08 AM [facility] Creatinine 0.59 0.50 - 1.10 mg/dL LAB CHEMISTRY METHOD 01/15/2025 11:08 AM [facility] eGFR 87 >=60 mL/min/1. 73m2 LAB CHEMISTRY METHOD 01/15/2025 11:08 AM [facility] Comment:Calculation based on the??Chronic Kidney Disease Epidemiology Collaboration (CKD-EPI) equation refit??without adjustment for race. BUN/Creatinine Ratio 55.9 LAB CHEMISTRY METHOD 01/15/2025 11:08 AM [facility] Calcium 9.5 8.5 - 10.5 mg/dL LAB CHEMISTRY METHOD 01/15/2025 11:08 AM [facility] Blood Venous blood specimen / Unknown Venipuncture / Unknown 01/15/2025 9:41 AM EDT 01/15/2025 10:31 AM EDT us Bobby Cuello MD LAB BLOOD ORDERABLES Final Resu lt [facility] [address] [place] [address], * ECG 12 lead (01/06/2025 7:46 PM EDT) Ventricular Rate ECG 56 BPM GEMUSE Atrial Rate 56 BPM GEMUSE P-R Interval 164 ms GEMUSE QRS Duration 94 ms GEMUSE Q-T Interval 414 ms GEMUSE QTc 399 ms GEMUSE P Wave [place] 35 degrees GEMUSE R [place] -30 degrees GEMUSE T [place] 35 degrees GEMUSE ECG Interpretation Sinus bradycardia Left axis deviation Minimal voltage criteria for LVH, may be normal variant Cannot rule out Anterior infarct , age undetermined Abnormal ECG When compared with ECG of 26-OCT-2024 07:55, No significant change was found Confirmed by MD Eric, Lam ([id number]) on 01/21/2025 9:04:21 AM GEMUSE 01/03/2025 12:4 9 PM EDT 01/21/2025 9:04 AM EDT Venecia Hardy MANAGER QA ECG ORDERABLES Edite d Result - Final GEMUSE * (ABNORMAL) TRANSTHORACIC ECHOCARDIOGRAM (TTE) COMPLETE (11/26/2024 3:53 PM EST) Left Atrium Minor [place] 6.6 cm CV PACS Left Atrium Major [place] 6.8 cm CV PACS LA Area Sys (A2C) 24 cm2 CV PACS LA Area Sys (A4C) 24 cm2 CV PACS LA Volume (BP) 71 mL CV PACS LA Size 4.6 cm CV PACS RA Area 12.9 cm2 CV PACS RA 2D Volume 28 mL CV PACS AV Regurgitation PHT 408 ms CV PACS AR Max Velocity 4.0 m/s CV PACS AV Peak Brandon 3.2 m/s CV PACS AV Peak Gradient 42 mmHg CV PACS AV Mean Gradient 18 mmHg CV PACS AV Mean Gradient 18 mmHg CV PACS AV Mean Gradient 18 mmHg CV PACS Ao VTI 76.4 cm CV PACS AV Area Continuity Equation 1.1 cm2 CV PACS AV Area Peak Velocity 1.1 cm2 CV PACS Aortic Arch 2.3 cm CV PACS Ascending Aorta 3.8 cm CV PACS Aortic Sinus Valsalva 3.3 cm CV PACS IVC Proximal 1.9 cm CV PACS IVSD 1.2(A) 0.6 - 0.9 cm CV PACS LVIDD 4.6 3.8 - 5.2 cm CV PACS LVIDS 3.0 2.2 - 3.5 cm CV PACS LVOT Diameter 1.8 cm CV PACS LVOT Mean Brandon 0.8 m/s CV PACS LVOT Mean Grad 3 mmHg CV PACS LVOT Mean Grad 3 mmHg CV PACS LVOT Mean Grad 3 mmHg CV PACS LVOT Mean Grad 3 mmHg CV PACS LVOT Peak VTI 32.4 cm CV PACS LVOT Peak Brandon 1.4 m/s CV PACS LVOT Peak Gradient 8 mmHg CV PACS LVPWD 1.2(A) 0.6 - 0.9 cm CV PACS MV E' Tissue Velocity Lateral 7 cm/s CV PACS MV E' Tissue Velocity Septal 6 cm/s CV PACS LVOT Area 2.5 cm2 CV PACS LVOT Stroke Volume 82 mL CV PACS MV Deceleration Graham 6.9 m/s2 CV PACS E Wave Deceleration Time 139 119 - 242 ms CV PACS MV PHT 53 ms CV PACS MV Peak A Brandon 1.36 m/s CV PACS MV Peak E Brandon 1.10 m/s CV PACS MV Mean Gradient 3 mmHg CV PACS MV Mean Gradient 3 mmHg CV PACS MV Mean Gradient 3 mmHg CV PACS MV Mean Gradient 3 mmHg CV PACS MV Mean Gradient 3 mmHg CV PACS MV VTI 41.8 cm CV PACS Mitral Valve Max Velocity 1.5 m/s CV PACS MV Peak Gradient 9 mmHg CV PACS MV Area PHT 4.2 cm2 CV PACS MV Area Continuity Equation 2.0 cm2 CV PACS PV Acceleration Time 115 ms CV PACS PV Mean Gradient 3 mmHg CV PACS PV Mean Gradient 3 mmHg CV PACS PV VTI 19.8 cm CV PACS PV Peak Velocity 1.3 m/s CV PACS PV Peak Gradient 7 mmHg CV PACS RV Diastolic Basal Dimension 3.5 2.5 - 4.1 cm CV PACS RV S' 9 cm/s CV PACS TAPSE 28 mm CV PACS TR Peak Velocity 3.26 m/s CV PACS TR Peak Gradient 43 mmHg CV PACS E/E' Ratio Septal 18 CV PACS E/E' Ratio Averaged 17 CV PACS Relative Wall Thickness ratio 0.52 CV PACS LVOT:AV VTI Index 0.42 CV PACS FS 35 % CV PACS LV Mass 2D 205 g CV PACS MV VTI:LVOT VTI ratio 1.3 CV PACS LVOT flow 203 mL/s CV PACS AV Velocity Ratio 0.44 CV PACS E/A Ratio 0.8 CV PACS E/E' Ratio Lateral 16 CV PACS BSA 1.73 m2 CV PACS LA Volume Index (BP) 43 mL/m2 CV PACS LVIDD Index 2.75 cm/m2 CV PACS LVIDS Index 1.80 cm/m2 CV PACS LV Mass Index 2D 123(A) 44 - 88 g/m2 CV PACS LVOT Stroke Index 49 mL/m2 CV PACS LA Dimension Index 2D 2.8 cm/m2 CV PACS RA 2D Volume Index 17 15 - 27 mL/m2 CV PACS MIRIAN Index (VTI) 0.65 cm2/m2 CV PACS MIRIAN Index (Pk Brandon) 0.66 cm2/m2 CV PACS Ascending Aorta Index 2.28 cm/m2 CV PACS Anatomical Region Laterality Modality Ultrasound Narrative 11/29/2024 12:04 PM EST ?Image quality is good. ??LV function and size is normal. ??Borderline LVH. ??EF in the range of 60%. ??Moderate diastolic dysfunction. ?RV size and function is normal. ?The left atrium is moderately dilated. ??The right atrium is normal. ?? There is a highly mobile interatrial septum that qualifies for the definition of an atrial septal aneurysm. ?There is mild to moderate aortic valve stenosis with a mean gradient of 17 mmHg and a VTI ratio of 0.44 ?No other significant valvular abnormalities. ?No significant change from September 2022 when the mean aortic gradient was 13 mmHg. ??The ascending aorta was measured at 3.5 and is now 3.8 cm in diameter. Left Ventricle Left ventricle cavity size is normal. There is mild concentric hypertrophy. Systolic function is normal with an ejection fraction of 60-65%. There are no regional LV wall motion abnormalities. There is Grade II (moderate) diastolic dysfunction. Right Ventricle Right ventricle cavity appears normal. Systolic function is normal. Left Atrium Left atrium cavity is moderately dilated. There is an atrial septal aneurysm that is highly mobile. Right Atrium Right atrium cavity is normal. IVC/SVC Inferior vena cava structure is normal. RA pressures is estimated to be 3 mmHg (IVC diameter <21 mm and decreases >50% during inspiration). Mitral Valve The leaflets are mildly thickened. There is mild annular calcification. There is trace regurgitation. There is no evidence of mitral valve stenosis. Tricuspid Valve Tricuspid valve structure is normal. There is moderate regurgitation with a central jet. There is no evidence of tricuspid valve stenosis. The right ventricular systolic pressure is moderately elevated. Aortic Valve The aortic valve is trileaflet. There is mild regurgitation with a centrally directed jet. There is mild-moderate stenosis. Mean gradient of 17 to 18 mmHg with a VTI ratio of 0.44 Pulmonic Valve There is trace pulmonic valve regurgitation. There is no evidence of pulmonic valve stenosis. Ascending Aorta The ascending aorta is (3.8 cm). This is just above the upper limits of normal. Pericardium Pericardium appears normal. There is no pericardial effusion. Study Details Overall the study quality was adequate. Venecia Hardy MANAGER QA CV ECHO PROCEDURES Fi nal Result * Lipid panel with reflex to direct LDL (10/29/2024 7:55 AM EST) Cholesterol 182 0 - 200 mg/dL LAB CHEMISTRY METHOD 10/29/2024 9:55 AM [facility] Triglycerides 43 0 - 150 mg/dL LAB CHEMISTRY METHOD 10/29/2024 9:55 AM [facility] HDL 89 >=40 mg/dL LAB CHEMISTRY METHOD 10/29/2024 9:55 AM [facility] LDL Calculated 84 0 - 100 mg/dL LAB CHEMISTRY METHOD 10/29/2024 9:55 AM [facility] VLDL Cholesterol Nael 8.6 mg/dL LAB CHEMISTRY METHOD 10/29/2024 9:55 AM [facility] Non HDL Chol. (LDL+VLDL) 93 <145 mg/dL LAB CHEMISTRY METHOD 10/29/2024 9:55 AM [facility] Chol/HDL Ratio 2.0 0.0 - 4.4 LAB CHEMISTRY METHOD 10/29/2024 9:55 AM EST [facility] Blood Venous blood specimen / Unknown Venipuncture / Unknown 10/29/2024 7:55 AM EST 10/29/2024 8:57 AM EST Venecia Hardy MANAGER QA LAB BLOOD ORDERABLES Final Result [facility] [address] [place] [address], * DANYELL DEXA AXIAL SKELETON (01/10/2018 9:59 AM EDT) Anatomical Region Laterality Modality Mammography 01/10/2018 9:00 AM EDT Narrative 01/10/2018 9:59 AM EDT [facility] Diagnostic Imaging Department [address] [place] [address] Patient: ??LANDON,JAN ?/Age/Sex: 1935 - 82 - F Unit#: ??[id number] ? Location/Status: ??SPDIMAM/REG CLI ? Mnemonic/Ordering Site: ??[facility] Ordering Physician: ??CHAR PRADO MD Danyell Dexa Axial Skeleton - 01/10/18953 HISTORY: ??The patient is an 82-year-old postmenopausal female with clinical concern for metabolic bone disease. FINDINGS: ??Dual energy x-ray absorptiometry of the lumbar spine and femurs is performed. The mean bone mineral density at L1-L4 is 1.125 gm/cm2 which is 95% of that of young normals and 111% of that of age matched controls. This yields a T-score of -0.5 and a Z-score of 0.9 and there is therefore no evidence of osteoporosis or osteopenia here. The mean bone mineral density of the femurs bilaterally is 0.755 gm/cm2 which is 75% of that of young normals and 95% of that of age matched controls. ??This yields a T-score of -2.0 and a Z-score of -0.3 which is diagnostic of osteopenia. IMPRESSION: 1. Osteopenia. ??There has been an increase of 1.0% in bone mineral density in the lumbar spine since the prior examination of 04/23/2014. ??There has been a decrease of 3.1% in bone mineral density in the right femur and a decrease of 3.4% in bone mineral density in the left femur. 2. FRAX analysis yields a 10-year probability of major osteoporotic fracture of 14.0% and a 10-year probability of hip fracture of 3.8%. Code 47827 Dictating Physician: ??SALLY VARGAS MD Electronically Signed by: ??SALLY VARGAS MD Dic Date/Time: ??01/10/1856 Sign date/Time: ??01/10/1859 Procedure Note Sally Vargas MD - 09/21/2022 [facility] Diagnostic Imaging Department [address] [place] [address] Patient: JAN BEVERLY /Age/Sex: 1935 - 82 - F Unit#: [id number] Location/Status: SPDIMAM/REG CLI [facility] Ordering Physician: CHAR PRADO MD [facility] Dexa Axial Skeleton - 01/10/18953 HISTORY: The patient is an 82-year-old postmenopausal female withclinical concern for metabolic bone disease. FINDINGS: Dual energy x-ray absorptiometry of the lumbar spine and femursis performed. The mean bone mineral density at L1-L4 is 1.125 gm/cm2 which is95% of that of young normals and 111% of that of age matched controls. Thisyields a T-score of -0.5 and a Z-score of 0.9 and there is therefore no evidenceof osteoporosis or osteopenia here. The mean bone mineral density of the femurs bilaterally is 0.755 gm/fo8glhnh is 75% of that of young normals and 95% of that of age matched controls.This yields a T-score of -2.0 and a Z-score of -0.3 which is diagnostic of osteopenia. IMPRESSION: 1. Osteopenia. There has been an increase of 1.0% in bone mineral densityin the lumbar spine since the prior examination of 04/23/2014. There has flakita decrease of 3.1% in bone mineral density in the right femur and a decreaseof 3.4% in bone mineral density in the left femur. 2. FRAX analysis yields a 10-year probability of major osteoporoticfracture of 14.0% and a 10-year probability of hip fracture of 3.8%. 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
== END 2025-02-11 10:26 | disposition home or self-care (01) ==
LOC: HO.HGS 09:53
PROVIDERS: PCP Family Medicine; Visit Provider Surgery
DX: K62.1 Rectal polyp (principal)
CPT/HCPCS: 99024

== ENCOUNTER → 2025-02-11 09:53 | Outpatient (BNVA) | payer MEDICARE, SELFPAY | PROVIDERS: PCP Family Medicine; Visit Provider Surgery | DX: K62.1 Rectal polyp (principal) | CPT/HCPCS: 99212 ==

== ENCOUNTER 2025-04-17 08:45 | Outpatient (AMB) | payer MEDICARE, SELFPAY ==
--- OUTSIDE RECORDS SUMMARY | 2024-12-06 03:30 | XMS_ITS ---
Author Organization [facility] Address [address] [place] [address] Care Team Providers Care Detail Maker And Fitter Name Role Phone Axel (RETIRED) , Beck Primary Care Provider Unavailable Duke Whitley Unavailable [phone] REASON FOR VISIT rectal bleeding,fecal soiling Encounters Encounter Location Date Provider Diagnosis [facility] [place] Outpatient [address] [place], [place] [id number] 12/06/2024 Duke Whitley Rectal mass K62.9 and [...] Notes * JAN NAVARRETEDOB:[birth year] (89 yo F)Acc No.[id number]:12/06/2024 COLON WITH MAC Patient: JAN CAMPBELL Provider: Jose Whitley MD :1935 A ge:89 Y S ex:Female Date:12/06/2024 Address:[address] [place], [place] [id number] Pcp:Beck Reyna (RETIRED) MD Subjective: * Chief [...] 12/06/2024 Generated for Adam lux/Gregorio/Joseitting on: 0 04/17/2025 08:53 AM EDT
[2025-04-17 08:52] VITALS: BP 140/63; PULSE 72
--- NOTE | 2025-04-17 08:52 | A.OFFVIS_ITS ---
Vital Signs 04/17/25 08:52 Weight 163 lb BP 140/63 H Blood Pressure Location Rt brachial Position Sitting Pulse 72 Intake Visit Reasons: S/P EUA, exc. rectal lesion Intake Note: Patient here 3m s/p transanal excision. Reports incision healed well. Patient c/o: no concerns. Denies constipation, diarrhea. Photograph Mounter Required: No Accompanied by: daughter Sandar Allergies latex Allergy (Intermediate, Verified 04/17/25 08:53) Itching prednisone Adverse Reaction (Severe, Verified 04/17/25 08:53) mouth sores benzoin Adverse Reaction (Intermediate, Verified 04/17/25 08:53) rash Medication List - Last Reconciled 04/17/25 by Jorge L Arias MD albuterol sulfate 90 mcg/actuation 1 puff inhalation QID PRN betamethasone dipropionate 0.05% 1 appl topical BID PRN budesonide-formoterol 160-4.5 mcg/actuation (Breyna) 2 inhalations inhalation BID hxhfdncprb-[id number]-kjnx 50-300-40 mg 1 cap PO Q12H PRN calcium carbonate (Calcium 600) 1,200 mg PO DAILY cholecalciferol (vitamin D3) 25 mcg PO DAILY docusate sodium (Colace) 100 mg PO BID furosemide 20 mg PO DAILY furosemide 20 mg PO DAILY PRN gabapentin 300 mg PO BEDTIME ipratropium-albuterol 0.5 mg-3 mg(2.5 mg base)/3 mL 3 mL inhalation QID losartan 100 mg DAILY magnesium 250 mg PO DAILY montelukast 10 mg PO BEDTIME multivit with min-folic acid 80 mcg (Centrum Adult 50 Plus) 1 tab PO DAILY rivaroxaban (Xarelto) 20 mg DAILY Held on 02/08/25. Instructions: Resume on 02/11/25. spironolactone 25 mg PO DAILY terazosin 5 mg BEDTIME tramadol 50 mg PO DAILY PRN HPI HPI S/P EUA, exc. rectal lesion: Details: She is here for follow-up after excision of a rectal polyp last January,. This had shown a tubulo villous adenoma She currently denies any significant complaints. She feels well overall. She denies any rectal bleeding. 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 Osteoarthritis Sciatica Pneumonia Venous insufficiency Diverticulitis COPD (chronic obstructive pulmonary disease) Leg cramps Insomnia Sinusitis GERD (gastroesophageal reflux disease) Hypertension Surgical History History of surgery on arm History of surgery on wrist History of bilateral cataract extraction Hx of shoulder surgery History of left knee replacement History of carpal tunnel release History of lobectomy of lung Hx of foot surgery Hx of section History of esophagogastroduodenoscopy (EGD) H/O colonoscopy Status post revision of total knee replacement History of total knee replacement (TKR) H/O total hysterectomy H/O vein stripping Social History Household Members: Spouse Housing: House Are you a primary resident care aid to a significant other at home: No Do you presently have visiting nurse or other home services: No Alcohol intake: current Alcohol intake frequency: holidays/special occasions only Patient Tobacco Use Status: Never used Tobacco service: No Review of Systems Const Denies chills and Denies fever(s) Card Denies chest pain at rest Resp Denies cough GI Denies abdominal pain Physical Exam Vital Signs: Last Vital Signs Pulse 72 04/17/25 08:52 BP 140/63 H 04/17/25 08:52 Const General: comfortable and no acute distress Resp Effort & Inspection: normal respiratory effort GI Other: Rectal exam does not reveal any lesions except for external hemorrhoids Palpation (GI): Soft to palpation Office Procedures Anoscopy She was in prone sanket-knife position. The anoscope was gently inserted. A full examination of the anal canal was done. There were no lesions seen. There was no evidence of any recurrent rectal polyp or residual rectal polyp. There was no bleeding. There was note of some internal external hemorrhoids There was no induration on digital exam [id number] Assessment & Plan Assessment & Plan (1) Rectal polyp: Code(s): K62.1 - Rectal polyp Category: Medical Plan: This was excised transanally in January. Her path report had shown a tubulovillous adenoma. Current physical exam and anoscopy does not suggest any recurrent or residual lesion She was instructed to see me if she notices any new bleeding or any problems with her anus Her daughter was with her during the visit. Coding Level of Care Code Est Pt Level 2 (59171) Diagnoses Rectal polyp K62.1 CPT Codes Details - CPT: 91646-Ppeoowcg ([id number])
--- OUTSIDE RECORDS SUMMARY | 2025-04-17 08:54 | XMS_ITS | Clinical Summary ---
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 Diastolic heart failure ([facility] V24, [facility] V2 8) 07/13/2021 Overview (08/28/2024): Last Assessment [...] EDT): Rate is well controlled off AV robret blocking agents. She is anticoagulated on Xarelto [...] low- sodium diet; continue spironolactone and furosemide. Social History Tobacco Use Types Packs/Day Years [...] Description 05/01/2025 1:00 PM EDT Office Visit [facility] [address] [facility] 101 [place] [address] Bobby Cuello MD [address] [address] 05/24/2025 9:00 AM EDT Office Visit [facility] [place] 160 175 [facility] 160 [place] [phone] Catrachita Lay PA [address] [address] Health Maintenance Due Date Last Done Comments Pneumococcal Vaccine: 50+ Years (1 of 2 - PCV) 1954 Zoster Vaccines (1 of 2) 1954 RSV Immunization Adult Patients (1 - 1-dose 75+ series) 2012 Depression Screening 09/11/2022 Falls Risk Assessment 09/11/2022 Medicare Annual Wellness Visit 09/11/2022 Social Influencers of Health Screening 09/11/2022 COVID-19 Vaccine ( season) 2024 05/12/2022, 08/23/2021, 12/18/2020, Additional history exists Influenza Vaccine (#1) 2025 , 07/18/2023, 08/05/2022, Additional history exists Hypertension/CHF/CAD Annual BMP Blood Test 02/18/2026 02/18/2025, 01/15/2025, 01/07/2025, Additional history exists Osteoporosis Screening (Bone Density Screening) 01/11/2028 01/10/2018 Cholesterol Screening (Lipid Panel) 10/29/2029 10/29/2024 DTaP,Tdap,and Td Vaccines (2 - Td or Tdap) 04/10/2034 04/10/2024 HIB Vaccines Aged Out No longer eligi [...] Procedure Name Priority Date/Time Associated Diagnosis Comments CBC WITH AUTO DIFFERENTIAL Routine 02/18/2025 8:50 AM EDT Essential hypertension, benign Anemia CBC AND DIFFERENTIAL Routine 02/18/2025 8:50 AM EDT Essential hypertension, benign Anemia CREATININE, SERUM Routine 02/18/2025 8:5 0 AM EDT Essential hypertension, benign Anemia BUN Routine 02/18/2025 8:50 AM EDT Essential hypertension, benign Anemia ELECTROLYTE PANEL Routine 02/18/2025 8:5 0 AM EDT Essential hypertension, benign Anemia LIPID PANEL WITH REFLEX TO DIRECT LDL Routine 10/29/2024 7:55 AM EST Chronic diastolic heart failure (CMS/HCC V24, CMS/HCC V28) Essential hypertension [facility] DEXA AXIAL SKELETON Routine 01/10/2018 9:59 AM EDT Other specified disorders of bone density and structure, unspecified site from Last 3 Months or Most Recently Relevant to Health Maintenance Results * (ABNORMAL) CBC auto differential (02/18/2025 8:50 AM EDT) [facility] Signature WBC 7.5 4.8 - 10.8 K/mcL LAB HEMETOLOGY METHOD 02/18/2025 10:54 AM [facility] RBC 3.00(L) 3.80 - 4.80 M/mcL LAB HEMETOLOGY METHOD 02/18/2025 10:54 AM [facility] Hemoglobin 9.7(L) 11.5 - 16.0 g/dL LAB HEMETOLOGY METHOD 02/18/2025 10:54 AM [facility] Hematocrit 29.9(L) 35.0 - 47.0 % LAB HEMETOLOGY METHOD 02/18/2025 10:54 AM [facility] MCV 99.3(H) 79.0 - 98.0 FL LAB HEMETOLOGY METHOD 02/18/2025 10:54 AM [facility] MCH 32.2(H) 27.0 - 32.0 pcg LAB HEMETOLOGY METHOD 02/18/2025 10:54 AM [facility] MCHC 32.4 32.0 - 37.0 g/dL LAB HEMETOLOGY METHOD 02/18/2025 10:54 AM [facility] RDW 14.0 11.0 - 15.0 % LAB HEMETOLOGY METHOD 02/18/2025 10:54 AM [facility] Platelets 271 130 - 400 K/mcL LAB HEMETOLOGY METHOD 02/18/2025 10:54 AM [facility] MPV 9.5 7.0 - 11.0 FL LAB HEMETOLOGY METHOD 02/18/2025 10:54 AM [facility] NRBC 0.0 <1.0 % LAB HEMETOLOGY METHOD 02/18/2025 10:54 AM [facility] NRBC Absolute 0.00 <0.10 K/mcL LAB HEMETOLOGY METHOD 02/18/2025 10:54 AM [facility] Neutrophils Relative 79.1 % LAB HEMETOLOGY METHOD 02/18/2025 10:54 AM [facility] Lymphocytes Relative 12.1 % LAB HEMETOLOGY METHOD 02/18/2025 10:54 AM [facility] Monocytes Relative 7.0 % LAB HEMETOLOGY METHOD 02/18/2025 10:54 AM [facility] Eosinophils Relative 0.7 % LAB HEMETOLOGY METHOD 02/18/2025 10:54 AM [facility] Basophils Relative 0.4 % LAB HEMETOLOGY METHOD 02/18/2025 10:54 AM [facility] Immature Granulocytes Relative 0.7 % LAB HEMETOLOGY METHOD 02/18/2025 10:54 AM [facility] Neutrophils Absolute 5.91 1.50 - 7.00 K/mcL LAB HEMETOLOGY METHOD 02/18/2025 10:54 AM [facility] Lymphocytes Absolute 0.90(L) 1.00 - 5.00 K/mcL LAB HEMETOLOGY METHOD 02/18/2025 10:54 AM [facility] Monocytes Absolute 0.52 0.20 - 1.00 K/mcL LAB HEMETOLOGY METHOD 02/18/2025 10:54 AM EDT [facility] Eosinophils Absolute 0.05 0.00 - 0.50 K/[facility] LAB HEMETOLOGY METHOD 02/18/2025 10:54 AM EDT [facility] Basophils Absolute 0.03 0.00 - 0.20 K/[facility] LAB HEMETOLOGY METHOD 02/18/2025 10:54 AM EDT [facility] Immature Granulocytes Absolute 0.05(H) 0.00 - 0.03 K/[facility] LAB HEMETOLOGY METHOD 02/18/2025 10:54 AM EDT [facility] Blood Venous blood specimen / Unknown Venipuncture / Unknown 02/18/2025 8:50 AM EDT 02/18/2025 9:56 AM EDT us Beck Reyna MD LAB BLOOD ORDERABLES Final Res ult Performing Organization Address City/[facility]/ZIP Co de Phone Number [facility] [address] [place] [address], * Creatinine (02/18/2025 8:50 AM EDT) Creatinine 0.52 0.50 - 1.10 mg/dL LAB CHEMISTRY METHOD 02/18/2025 10:51 AM EDT [facility] eGFR 90 >=60 mL/min/1. 73m2 LAB CHEMISTRY METHOD 02/18/2025 10:51 AM EDT [facility] Comment:Calculation based on the Chronic Kidney Disease Epidemiology Collaboration (CKD-EPI) equation refit without adjustment for race. Blood Venous blood specimen / Unknown Venipuncture / Unknown 02/18/2025 8:50 AM EDT 02/18/2025 9:52 AM EDT us Beck Reyna MD LAB BLOOD ORDERABLES Final Res ult [facility] [address] [place] [address], [place] [phone] * BUN (02/18/2025 8:50 AM EDT) BUN 24 5 - 25 mg/dL LAB CHEMISTRY METHOD 02/18/2025 10:51 AM EDT [facility] Blood Venous blood specimen / Unknown Venipuncture / Unknown 02/18/2025 8:50 AM EDT 02/18/2025 9:52 AM EDT us Beck Reyna MD LAB BLOOD ORDERABLES Final Res ult [facility] [address] [place] [address], * Electrolyte panel (02/18/2025 8:50 AM EDT) Sodium 135 133 - 145 mmol/L LAB CHEMISTRY METHOD 02/18/2025 10:54 AM EDT [facility] Potassium 4.2 3.5 - 5.5 mmol/L LAB CHEMISTRY METHOD 02/18/2025 10:54 AM EDT [facility] Chloride 101 96 - 110 mmol/L LAB CHEMISTRY METHOD 02/18/2025 10:54 AM EDT [facility] CO2 27 21 - 32 mmol/L LAB CHEMISTRY METHOD 02/18/2025 10:54 AM EDT [facility] Anion Gap 7 3 - 11 LAB CHEMISTRY METHOD 02/18/2025 10:54 AM EDT [facility] Blood Venous blood specimen / Unknown Venipuncture / Unknown 02/18/2025 8:50 AM EDT 02/18/2025 9:52 AM EDT us Beck Reyna MD LAB BLOOD ORDERABLES Final Res ult [facility] [address] [place] [address], [place] [phone] * Lipid panel with reflex to direct LDL (10/29/2024 7:55 AM EST) Cholesterol 182 0 - 200 mg/dL LAB CHEMISTRY METHOD 10/29/2024 9:55 AM EST [facility] Triglycerides 43 0 - 150 mg/dL LAB CHEMISTRY METHOD 10/29/2024 9:55 AM EST [facility] HDL 89 >=40 mg/dL LAB CHEMISTRY METHOD 10/29/2024 9:55 AM EST [facility] LDL Calculated 84 0 - 100 mg/dL LAB CHEMISTRY METHOD 10/29/2024 9:55 AM EST [facility] VLDL Cholesterol Nael 8.6 mg/dL LAB CHEMISTRY METHOD 10/29/2024 9:55 AM EST [facility] Non HDL Chol. (LDL+VLDL) 93 <145 mg/dL LAB CHEMISTRY METHOD 10/29/2024 9:55 AM EST [facility] Chol/HDL Ratio 2.0 0.0 - 4.4 LAB CHEMISTRY METHOD 10/29/2024 9:55 AM EST [facility] Blood Venous blood specimen / Unknown Venipuncture / Unknown 10/29/2024 7:55 AM EST 10/29/2024 8:57 AM EST Venecia Hardy [employer]PER[employer] LAB BLOOD ORDERABLES Final Result [facility] [address] [place] [address], [place] [phone] * DANYELL DEXA AXIAL SKELETON (01/10/2018 9:59 AM EDT) Anatomical Region Laterality Modality Mammography 01/10/2018 9:00 AM EDT Narrative 01/10/2018 9:[address] [facility] Diagnostic Imaging Department [address] [place] [address] Patient: NATALIA BEVERLY /Age/Sex: 1935 - 82 - F Unit#: [id number] Location/Status: SPDIMAM/REG CLI Mnemonic/Ordering Site: MAMDEXAAX/SPMAM Ordering Physician: PORTER PRADO MD Danyell Dexa Axial Skeleton - 01/10/18953 HISTORY: The patient is an 82-year-old postmenopausal female with clinical concern for metabolic bone disease. FINDINGS: Dual [...] 95% of that of age matched controls. This yields a T-score of -2.0 and a Z-score of -0.3 which is diagnostic of osteopenia. IMPRESSION: 1. Osteopenia. There has been an increase of 1.0% in bone mineral density in the lumbar spine since the prior examination of 04/23/2014. There has been a decrease of 3.1% in bone mineral density in the right femur and a decrease of 3.4% in bone mineral density in the left femur. 2. FRAX analysis yields a 10-year probability of major osteoporotic fracture of 14.0% and a 10-year probability of hip fracture of 3.8%. Code 64389 Dictating Physician: SALLY VARGAS MD Electronically Signed by: SALLY VARGAS MD Dic Date/Time: 01/10/18955 Sign date/Time: 01/10/18958 Procedure Note Sally Vargas MD - 09/21/[address] [facility] Diagnostic Imaging Department [address] [place] [address] Patient: LANDONNATALIA /Age/Sex: 1935 - 82 - F Unit#: [id number] Location/Status: [facility] Ordering Physician: PORTER PRADO MD Danyell Dexa Axial Skeleton - 01/10/18953 HISTORY: The [...] density of the femurs bilaterally is 0.755 gm/aw3jhmwu is 75% of that of young normals [...] probability of hip fracture of 3.8%. Code 60484 Dictating Physician: SALLY VARGAS MD Electronically Signed by: SALLY VARGAS MD Dic Date/Time: 01/10/1856 Sign date/Time: 01/10/1859 Porter Prado MD IMG BI PROCEDURES Final Resu lt from Last 3 Months or Most Recently Relevant to Health Maintenance Insurance MEDICARE [facility] Care Teams Skate Shop Attendant Relationship Specialty Start Date End Date Beck Reyna MD [address] [place] [address] [place] [address] PCP - General Internal Medicine 09/01/12
--- OUTSIDE RECORDS SUMMARY | 2025-04-17 08:54 | XMS_ITS | Patient Health Record ---
Author Organization [facility] Address [address] [place] [address] Care Team Providers Care Hand Stamper Name Role Phone Axel JACOBO, Beck Primary Care Provider Unavailab Bon Meza Unavailable [phone] Allergies Allergen (clinical drug ingredient) Drug/Non Drug Allergy documented on EMR Reaction Allergy Type Onset Date Status Benzoin Unknown Drug Allergy Active Latex Latex Unknown Allergy Active prednisone Prednisone Unknown Drug Allergy Activ e Reason For Referral No Information Medications Medication SIG (Take, Route, Frequency, Duration) Notes Start Date End Date Status Calcium + D Active Terazosin HCl 5 MG 1 capsule at bedtime Orally Once a day; Duration: 30 day(s) Active Fioricet prn Active traMADol HCl 50 MG 1 tablet as needed Orally Once a day prn Active Breyna 160-4.5 MCG/ACT as directed Inhalation Active ProAir HFA Active Betamethasone Active Spironolactone 25 MG 1 tablet Orally; Duration: 30 day(s) Active Nebulizer Active Montelukast Sodium A ctive Losartan Potassium 100 MG 1 tablet Orall y Once a day; Duration: 30 day(s) Active Symbicort 160-4.5 MCG/ACT 2 puffs Inhala tion Twice a day Not-Taking Magnesium Active Ciclopirox Olamine 0.77 % 1 application Externally Twice a day; Duration: 30 days Active Gabapentin 300 MG 1 capsule Orally 3 times a day; Duration: 30 days Active Furosemide 20 MG 1 tablet Orally Once a day; Duration: 30 day(s) Active Vitamin D Active Centrum Silver Activ e Xarelto 20 MG 1 tablet with food Orally Once a day; Duration: 30 day(s) Active Social History Tobacco Use: Social History [...] W/U Status Risk Notes Problem Plantar wart (18867483) Plantar wart (B07.0) Active confirmed Problem Bilateral atherosclerosis of arteries of lower limbs (disorder) ([id number] ) Atherosclerosis of [place] artery of both lower extremities, with unspecified presence of clinical manifestation (I70.203) Active confirmed Vital Signs Blood pressure diastolic 70 mm Hg 01/23/2025 Height 4ft 11in in 02/28/2025 Blood pressure systolic 129 mm Hg 01/23/2025 Weight 153 lbs 02/28/2025 BMI 30.9 kg/m2 02/28/2025 Procedures Procedure Date Ordered Date Performed Result Body Sit e 64732-Cpup Destruction, 1-14 05/23/2024 N/A 62462-MKILPVR NAIL, 6 OR MORE 07/23/2024 N/A 07064-Mjza Destruction, -07/23/2024 N/A 32734-QMAS SKIN LESIONS, OVER 4 07/23/2024 N/A 24379-Hvmb Destruction, 1-14 08/29/2024 N/A 61664-NBMIGMQ NAIL, 6 OR MORE 10/08/2024 N/A 58517-Trdq Destruction, -14 10/08/2024 N/A 03908-LAYH SKIN LESIONS, OVER 4 10/08/2024 N/A 98979-Bytm Destruction, -14 11/12/2024 N/A 86029-NPPVNVL NAIL, 6 OR MORE 12/17/2024 N/A 70715-Hjed Destruction, 1-14 12/17/2024 N/A 56587-MVPM SKIN LESIONS, OVER 4 12/17/2024 N/A 25577-Cgro Destruction, 1-01/23/2025 N/A 79926-WCBTBJZ NAIL, 6 OR MORE 02/28/2025 N/A 29053-Jnhk Destruction, 1-02/28/2025 N/A 99138-SLHP SKIN LESIONS, OVER 4 02/28/2025 N/A Encounters Encounter Location Date Provider Diagnosis [facility] [address] [place] [phone] 05/23/2024 Bon Michelle Plantar wart B07.0 ; Right foot pain M79.671 and Tinea pedis of both feet B35.[address] [address] 07/23/2024 Bon Michelle Atherosclerosis of [place] artery of both lower extremities, with unspecified presence of clinical manifestation I70.203 ; Plantar wart B07.0 ; Tinea unguium B35.1 ; Pain in right toe(s) M79.674 ; Pain in left toe(s) M79.675 and Right foot pain M79.[address] [address] 08/29/2024 Bon Michelle Plantar wart B07.0 a nd Right foot pain M79.[address] [address] 10/08/2024 Bon Michelle Atherosclerosis of [place] artery of both lower extremities, with unspecified presence of clinical manifestation I70.203 ; Plantar wart B07.0 ; Tinea unguium B35.1 ; Pain in right toe(s) M79.674 ; Pain in left toe(s) M79.675 and Right foot pain M79.[address] [address] 11/12/2024 Bon Michelle Plantar wart B07.0 a nd Right foot pain M79.[address] [address] 12/17/2024 Bon Martinez Atherosclerosis of [place] artery of both lower extremities, with unspecified presence of clinical manifestation I70.203 ; Plantar wart B07.0 ; Tinea unguium B35.1 ; Pain in right toe(s) M79.674 ; Pain in left toe(s) M79.675 and Right foot pain M79.[address] [address] 01/23/2025 Bon Michelle Plantar wart B07.0 a nd Right foot pain M79.[address] [address] 02/28/2025 Bon Martinez Atherosclerosis of [place] artery of both lower extremities, with unspecified presence of clinical manifestation I70.203 ; Plantar wart B07.0 ; Tinea unguium B35.1 ; Pain in right toe(s) M79.674 ; Pain in left toe(s) M79.675 and Right foot pain M79.[address] [address] 11/12/2024 Bon Martinez [address] [address] 12/17/2024 Bon Michelle Assessments Encounter Date Diagnosis (ICD Code) Assessment Notes Treatment Notes Treatment Clinical Notes Section Notes 05/23/2024 Plantar wart (ICD-10 - B07.0) 05/23/2024 Right foot pain (ICD-10 - M79.671) 07/23/2024 Plantar wart (ICD-10 - B07.0) 07/23/2024 Atherosclerosis of [place] artery of both lower extremities, with unspecified presence of clinical manifestation (ICD-10 - I70.203) 08/29/2024 Plantar wart (ICD-10 - B07.0) 08/29/2024 Right foot pain (ICD-10 - M79.671) 10/08/2024 Plantar wart (ICD-10 - B07.0) 10/08/2024 Atherosclerosis of ak[place] artery of both lower extremities, with unspecified presence of clinical manifestation (ICD-10 - I70.203) 11/12/2024 Plantar wart (ICD-10 - B07.0) 11/12/2024 Right foot pain (ICD-10 - M79.671) 12/17/2024 Plantar wart (ICD-10 - B07.0) 12/17/2024 Atherosclerosis of [place] artery of both lower extremities, with unspecified presence of clinical manifestation (ICD-10 - I70.203) 01/23/2025 Plantar wart (ICD-10 - B07.0) 01/23/2025 Right foot pain (ICD-10 - M79.671) 02/28/2025 Plantar wart (ICD-10 - B07.0) 02/28/2025 Atherosclerosis of [place] artery of both lower extremities, with unspecified presence of clinical manifestation (ICD-10 - I70.203) 02/28/2025 Tinea unguium (ICD-10 - B35.1) 12/17/2024 Tinea unguium (ICD-10 - B35.1) 10/08/2024 Tinea unguium (ICD-10 - B35.1) 07/23/2024 Tinea unguium (ICD-10 - B35.1) 05/23/2024 Tinea pedis of both feet (ICD-10 - B35.3) 07/23/2024 Pain in right toe(s) (ICD-10 - M79.674) 10/08/2024 Pain in right toe(s) (ICD-10 - M79.674) 12/17/2024 Pain in right toe(s) (ICD-10 - M79.674) 02/28/2025 Pain in right toe(s) (ICD-10 - M79.674) 02/28/2025 Pain in left toe(s) (ICD-10 - M79.675) 10/08/2024 Pain in left toe(s) (ICD-10 - M79.675) 12/17/2024 Pain in left toe(s) (ICD-10 - M79.675) 07/23/2024 Pain in left toe(s) (ICD-10 - M79.675) 07/23/2024 Right foot pain (ICD-10 - M79.671) 12/17/2024 Right foot pain (ICD-10 - M79.671) 10/08/2024 Right foot pain (ICD-10 - M79.671) 02/28/2025 Right foot pain (ICD-10 - M79.671) Plan Of Treatment Pending Test Test Name Order Date 16751-BDNPCYY NAIL, 6 OR MORE 10/20/2023 43592-DDPQBJQ NAIL, 6 OR MORE 01/11/2024 23835-NNDDBMV NAIL, 6 OR MORE 04/11/2024 58797-NCAPQQU NAIL, 6 OR MORE 07/23/2024 59762-IQVVBCN NAIL, 6 OR MORE 10/08/2024 90570-ONEGUIG NAIL, 6 OR MORE 12/17/2024 84990-DMBNKRC NAIL, 6 OR MORE 02/28/2025 75912-Qwgl Destruction, 1-14 02/28/2025 71602-Qnwr Destruction, 1-14 01/23/2025 31214-Rjey Destruction, 1-14 12/17/2024 27753-Lsri Destruction, 1-14 08/29/2024 63573-Wxvt Destruction, 1-14 11/12/2024 30069-Yfkh Destruction, 1-14 10/08/2024 67199-Cnlx Destruction, -14 07/23/2024 10992-Ysug Destruction, -14 04/11/2024 41859-Seee Destruction, 1-14 11/30/2023 55363-Iyyw Destruction, 1-14 05/23/2024 15393-Voiz Destruction, -14 01/11/2024 07104-Bsrn Destruction, 1-14 10/20/2023 92070-HHDP SKIN LESIONS, OVER 4 10/20/19 24 13959-AIFM SKIN LESIONS, OVER 4 01/11/20 24 44646-QZXM SKIN LESIONS, OVER 4 04/11/20 24 63455-OYMB SKIN LESIONS, OVER 4 07/23/20 24 21018-EUQX SKIN LESIONS, OVER 4 10/08/19 61745-LSQT SKIN LESIONS, OVER 4 12/18/19 25 61508-XRZA SKIN LESIONS, OVER 4 02/29/20 Next Appt Details Provider Name:Bon Martinez , 04/18/2025 03:45:00 PM, [address] [facility], [address], [place], [address], Insurance Providers Payer Name Payer Address Payer Phone Subscriber Number Group Number Insured Name Patient Relationship to Insured Coverage Start Date Coverage End Date Medicare [employer] [address] [place] [address] [id number] [employer] Natalia Self - patient is the insured [employer] [address] [place] [address] [id number] [employer], Natalia Self - patient is [...] 1986 right knee replacement 1997 bunionectomy 2001, 2002 left knee replacement 2002, 2004 carpal tunnel surgery 2005 shoulder surgery 2006 Lipoma 2009 hammer toe 2010 cataract surgery 2012, 2016 knee surgery, right 2014 vascular surgery 2015 wrist surgery 2014 Hand Surgery 2016 arm 2018 laser surgery, vascular 2019 tooth implant, 2 11/2023 colon polyps 12/29/24 Hospitalization History Reason Date(Month/Year) Keiry- missed step, fell, stitches on el bow 04/10/24
== END 2025-04-17 09:37 | disposition home or self-care (01) ==
LOC: HO.HGS 08:46
PROVIDERS: PCP Family Medicine; Visit Provider Surgery
DX: K62.1 Rectal polyp (principal)
CPT/HCPCS: 99024

== ENCOUNTER → 2025-04-17 08:45 | Outpatient (BNVA) | payer MEDICARE, SELFPAY | PROVIDERS: PCP Family Medicine; Visit Provider Surgery | DX: K62.1 Rectal polyp (principal) | CPT/HCPCS: 99212 ==

== ENCOUNTER 2025-05-27 10:32 | Outpatient (AMB) | payer MEDICARE, SELFPAY ==
--- OUTSIDE RECORDS SUMMARY | 2024-12-06 03:30 | XMS_ITS ---
Author Organization [facility] Address [address] [place] [address] Care Team Providers Care Deputy County Attorney Name Role Phone Axel (RETIRED) , Beck Primary Care Provider Unavailable Duke Whitley Unavailable [phone] REASON FOR VISIT rectal bleeding,fecal soiling Encounters Encounter Location Date Provider Diagnosis [facility] [place] Outpatient [address] [place], [place] [id number] 12/06/2024 Duke Whitley Rectal mass K62.9 and Diverticulosis of large intestine without perforation or abscess without bleeding K57.30 Assessments Encounter Date Diagnosis (ICD Code) Assessment Notes Treatment Notes Treatment Clinical Notes Section Notes 12/06/2024 Rectal mass (ICD-10 - K62.9) 12/06/2024 Diverticulosis of large intestine without perforation or abscess without bleeding (ICD-10 - K57.30) Plan Of Treatment No Information Progress Notes * JAN NAVARRETEDOB:[birth year] (89 yo F)Acc No.[id number]:12/06/2024 COLON WITH MAC Patient: JAN CAMPBELL Provider: Jose Whitley MD :1935 A ge:89 Y S ex:Female Date:12/06/2024 Address:[address] [place], [place] [id number] Pcp:Beck Reyna (RETIRED) MD Subjective: * Chief Complaints: * 1 . Rectal bleeding,fecal soiling. * Medical History: Objective: * Vitals: Assessment: * Assessment: 1. R ectal mass - K62.9 (Primary) 2 . D iverticulosis of large intestine without perforation or abscess without bleeding - K57.30 Plan: * Treatment: * Procedure Codes: 4 5380 COLONOSCOPY AND BIOPSY, 0529F INTRVL 3+YRS PTS CLNSCP DOCD, 0528F RCMND FLW-UP 10 YRS DOCD, Modifiers: 1P * * The named appointment provid er may or may not be the originator of this progress note, and it is not deemed complete until electronically signed by the appointment provider. Sign off status: Pending * Provider: Jose Whitley MD Date: 0 12/06/2024 Generated for Adam lux/Gregorio/Joseitting on: 0 05/27/2025 11:43 AM EDT
--- OUTSIDE RECORDS SUMMARY | 2025-05-23 07:00 | XMS_ITS ---
Author Organization [facility] sabina Como Address [address] [place] [address] Care Team Providers Care Commission Associate Name Role Phone Ingrid Jaffe Primary Care Provider Bon Palumbo Unavailable [phone] Allergies Allergen (clinical drug ingredient) Drug/Non Drug Allergy documented on EMR Reaction Allergy Type Onset Date Status Benzoin Unknown Drug Allergy Active Latex Latex Unknown Allergy Active prednisone Prednisone Unknown Drug Allergy Activ e REASON FOR VISIT At Risk Footcare, Painful Nail(s) aggrevated by shoes and causing difficulty standing/walking., Wart(s), Skin Problem Medications Medication SIG (Take, Route, Frequency, Duration) Notes Start Date End Date Status Xarelto 20 MG 1 tablet with food Orally Once a day; Duration: 30 day(s) Active Vitamin D Active traMADol HCl 50 MG 1 tablet as needed Orally Once a day prn Active Symbicort 160-4.5 MCG/ACT 2 puffs Inhala tion Twice a day Not-Taking Ketoconazole 2 % 1 application Apply a thin layer to externally to feet, even between toes Twice a day; Duration: 30 days Active Terazosin HCl 5 MG 1 capsule at bedtime Orally Once a day; Duration: 30 day(s) Active Spironolactone 25 MG 1 tablet Orally; Duration: 30 day(s) Active ProAir HFA Active Montelukast Sodium A ctive Nebulizer Active Centrum Silver Activ e Furosemide 20 MG 1 tablet Orally Once a day; Duration: 30 day(s) Active Magnesium Active Losartan Potassium 100 MG 1 tablet Orall y Once a day; Duration: 30 day(s) Active Gabapentin 300 MG 1 capsule Orally 3 times a day; Duration: 30 days Active Fioricet prn Active Calcium + D [...] Negative Vital Signs Height 4ft 11in in 05/23/2025 Weight 163 lbs 05/23/2025 BMI 32.92 kg/m2 05/23/2025 Blood pressure systolic 129 mm Hg 05/23/20 25 Blood pressure diastolic 70 mm Hg 025 Procedures Procedure Date Ordered Date Performed Result Body Sit e 79852-IFYBLKA NAIL, 6 OR MORE 05/23/2025 N/A 39250-Fcuh Destruction, 1-14 05/23/2025 N/A 71371-XWHB SKIN LESIONS, OVER 4 05/23/2025 N/A Encounters Encounter Location Date Provider Diagnosis [facility] [address] [address] 05/23/2025 Bon Martinez Atherosclerosis of [place] artery of both lower extremities, with unspecified presence of clinical manifestation I70.203 ; Plantar wart B07.0 ; Tinea unguium B35.1 ; Pain in right toe(s) M79.674 ; Pain in left toe(s) M79.675 ; Right foot pain M79.671 and Tinea pedis of both feet B35.3 Assessments Encounter Date Diagnosis (ICD Code) Assessment Notes Treatment Notes Treatment Clinical Notes Section Notes 05/23/2025 Atherosclerosis of [place] artery of both lower extremities, with unspecified presence of clinical manifestation (ICD-10 - I70.203) 05/23/2025 Plantar wart (ICD-10 - B07.0) 05/23/2025 Tinea unguium (ICD-10 - B35.1) 05/23/2025 Pain in right toe(s) (ICD-10 - M79.674) 05/23/2025 Pain in left toe(s) (ICD-10 - M79.675) 05/23/2025 Right foot pain (ICD-10 - M79.671) 05/23/2025 Tinea pedis of both feet (ICD-10 - B35.3) Plan Of Treatment Pending Test Test Name Order Date 71155-HFTXGFG NAIL, 6 OR MORE 05/23/2025 24454-Pyrp Destruction, 1-14 05/23/2025 62725-LUBG SKIN LESIONS, OVER 4 05/23/20 25 Next Appt Details Follow Up: prn, Reason: Provider Name:Bon Martinez , 09/04/2025 09:15:00 AM, [address] [facility], [address], [place], [address], Procedure Notes * Category Sub-Category Detail Notes Wart Treatment Procedure Verruca, as desc ribed in exam, were debrided to pin-point bleeding margins with sterile 15 surgical blade, silver nitrate chemocautery applied, recomm. immune-boosting meds such as zinc, recomm. follow up with topical chemosurgical agents, Pt defers any other forms of tx - 31854 Debride Nail 6-10 Nail debridement Due to [...] use of a nail nipper and/or dremel-type precision jig grinder, to a more viable healthy nail [...] to maintain effectiveness in symptomatic relief - 62931 Keratoma Treatment Parring or Cutting o f Benign Hyperkeratotic Lesion(s) (-57) More than 4 Lesions - Due to the at risk nature of the patients medical condition as documented in the exam findings, performance of this keratoderma treatment is medically necessary as its management by an unskilled/untrained nonprofessional would put this patients foot and overall health at risk. Therefore, the benign hyperkeratotic lesions, (9) in total, locations as stated and described in the exam ( Dorsal, PIPJ, T9, SUB MTH (s) , 1 , B/L , SUB MTH (s) , 2 , B/L , SUB MTH (s) , 3 , B/L , Plantar, Heel(s) , B/L ), were pared, and/or cut utilizing a sterile 15 blade, tissue nippers, and/or power dremel instrumentation by the physician of record - 50961, Q8 Progress Notes * TALI NataliaDOB:1934 (89 yo F)Acc No.[id number]:05/23/2025 Progress Notes Patient: Natalia DOS SANTOS Provider: Emmie Martinez DPM :1935 A ge:89 Y S ex:Female Date:05/23/2025 Address:[address] [place], [place] [id number] Pcp:Ingrid Jaffe Subjective: * Chief Complaints: * A t Risk FootcarePainful Nail(s) aggrevated by shoes and causing difficulty standing/walking.Wart(s)Skin Problem * HPI: A t Risk footcare: Pt States Last PCP Visit: D ate 0 03/20/2025 Misc S tates traveling to [place] next month. S kin problems: Treatments: M edication ( Ketoconazole 2 percent cream ), states adherence to recommended treatment application. * ROS: G eneral/Constitutional: Nausea a dmits. V omiting d enies. H radha Thirst d enies. L oss appetite d enies. C hills a dmits. F atigue a dmits.?Fever d enies. N ight Sweats a dmits. U nexplained weight loss d enies. U nexplained weight gain d enies. H EENTM: Dentures a dmits. D izziness a dmits. G lasses/contacts d enies. R etinopathy d enies. B lurred/double vision d enies. T MJ?denies. D ischarge/drainage d enies. I mplants d enies. S ore throat d enies. D ental implants d enies. H heather of hearing d enies. D ifficulty chewing/swallowing/speaking d enies. N ose bleeds d enies. S ore mouth d enies. ? R espiratory: On Oxygen d enies. P neumonia/pleurisy a dmits.?Bronchitis a dmits. E mphysema d enies. C oughing d enies. C ough blood?denies. S hortness of breath a dmits. W heezing a dmits. C ardiovascular: Pacemaker d enies. M WARP SPLITTER d enies. W PW d enies. C HF d enies. H eart attack d enies. S eptal defect d enies. R apid beat d enies. C hest pain d enies. A trial Fib. a dmits. M urmur/Palpitations a dmits. G astrointestinal: Hemorrhoids a dmits. S tomach/Abdominal pain d enies. D ark blood stool d enies. I rritable bowel d enies. C onstipation d enies. D iarrhea a dmits. H ematology: Swelling a dmits. C lots A dmits. V aricose Veins a dmits. B ruising a dmits. B leeding problem d enies. G enitourinary: Blood urine d enies. F requent/Painfu/urination/bladder control d enies. K idney stones d enies. I nfection (UTI) d enies. N ephropathy d enies. s ex trans dis (STD) d enies. P rostate d enies. M usculoskeletal: Hammertoes a dmits. B unions a dmits. B ack Pain a dmits. M uscle Cramps/ Resting a dmits. M uscle cramps / walking a dmits.?Generalized aches and pains a dmits. W eakness d enies. I nteg.: Hale d enies. S cars a dmits. C orns/calluses?admits. I ngrown nails a dmits. P ainful nails a dmits. O pen Sores d enies. R ashes d enies. N eurologic: Difficulty sleeping a dmits. B rain disorder d enies. N umbness a dmits. B alance trouble a dmits. C onfusion d enies. F ainting/blackouts d enies. T ingling a dmits. T remors d enies. * Medical History: * Surgical History: C -Section 1971lung surgery, blood clot, partial removal 1973hysterectomy 1979varicose veins 1986right knee replacement 1997bunionectomy 2001, 2003left knee replacement 2002, 2004carpal tunnel surgery 2005shoulder surgery 2006Lipoma 2009hammer toe 2010cataract surgery 2012, 2016knee surgery, right 2014vascular surgery 2015wrist surgery 2014Hand Surgery 2017arm 2018laser surgery, vascular 2020tooth implant, 2 4colon polyps 12/29/24 * Hospitalization/Major Diagno stic Procedure: M ercy- missed step, fell, stitches on elbow 04/10/24 * Family History: M other: , diagnosed with Unspecified essential hypertension, Unspecified heart disease, Family history of arthritis. F ather: , diagnosed with Other malignant neoplasm of unspecified site, Unspecified cerebral artery occlusion with cerebral infarction, Family history of arthritis. * Social History: T obacco Use: T obacco use other than smoking A re you an other tobacco user? N o Tobacco Control (Standard) T obacco use: N onsmoker A dditional Findings: Tobacco non-user C urrent nonsmoker M iscellaneous: C affeine: yes, 1-2 cups per day. Children: yes, 1. Marital status: . Occupation: Retired. D rug/Alcohol: A MARIO-C (Standard) D id you have a drink containing alcohol in the past year? Y es H ow often did you have a drink containing alcohol in the past year? M onthly or less (1 point) H ow many drinks did you have on a typical day when you were drinking in the past year? D eclined to specify (0 point) H ow often did you have six or more drinks on one occasion in the past year? D eclined to specify (0 point) P oints 1 I nterpretation N egative * Medications: T akingBreyna 160-4.5 MCG/ACT Aerosol as directed Inhalation Betamethasone Calcium [...] tablet with food Orally Once a day Ketoconazole 2 % Cream 1 application Apply a thin layer to externally to feet, even between toes Twice a day Taking Breyna 160-4.5 MCG/ACT [...] with food Orally Once a day Taking Ketoconazole 2 % Cream 1 application Apply a thin layer to externally to feet, even between toes Twice a day Not-Taking/PRNSymbicort 160-4.5 MCG/ACT Aerosol 2 puffs Inhalation Twice a day Medication List reviewed and reconciled with the patientNot-Taking/PRN Symbicort 160-4.5 MCG/ACT Aerosol 2 puffs Inhalation Twice a day Medication List reviewed and reconciled with the patient * Allergies: L atexPrednisoneBenzoinyes[Allergies Verified] Objective: * Vitals: H t: 4ft 11in, Wt: 163, BMI: 32.92, Shoe size: 7W, BP: 129/70 mm Hg, Wt-k.94 kg. * Examination: V ascular: DP PULSES (B): 0 /4 , RIGHT , 1/4 , LEFT. PT PULSES (B): 0/4, B/L. CAPILLARY FILL TIME: delayed, all digits, B/L. TROPHIC CONDITION-TEXTURE/ELASTICITY/TURGOR/HAIR GROWTH (B):? decreased, B/L. TEMPERTURE GRADIENT (C): decreased, cool to cool, proximal to distal, B/L. PIGMENTATION: r ubrous, B/L. EDEMA (C): 4 /4 , pitting , without aching pain , Leg(s) , Ankle(s) , Foot , B/L - Pt states normally wears compression stockings but refrained today due to appt. CLAUDICATION (C): d enies, B/L. REST PAIN: d enies, B/L. N ails: NAILS are: Elongated, overgrown, dystrophic, lytic, greater than 3mm thick, discolored and friable with crumbly malodorous subungual debris, with pain on palpation, T A, T1, T2, T3, T4, T5, T6, T7, T8, T9. D ermatologic: SKIN FINDINGS: S kin exam reveals Keratotic lesion(s) located at , Dorsal, PIPJ, T9, SUB MTH (s) , 1 , B/L , SUB MTH (s) , 2 , B/L , SUB MTH (s) , 3 , B/L , Plantar, Heel(s) , B/L , Skin shows approximately 50-60 percent LESS, sign(s) of, erythema, scaling, in a moccasin fashion, no fissure(s) present, B/L. VERRUCA: R eveals a Single , multi-loculated , mosaic-patterned, round, raised, flat- topped, petechial bleeding papule(s), with cauliflower appearance and interruption of skin lines, pain to lateral compression, and size estimated at 4mm diameter, plantar Forefoot , RIGHT. Assessment: * Assessment: 1. P koffi leost - B07.0 S pecify :RIGHT 2 . A therosclerosis of [place] artery of both lower extremities, with unspecified presence of clinical manifestation - I70.203 (Primary) S pecify :Q8 3 . T inea unguium - B35.1 4 . P ain in right toe(s) - M79.674 5 . P ain in left toe(s) - M79.675 6 . R ight foot pain - M79.671 7 . T inea pedis of both feet - B35.3 S pecify :Acute problem, Stable, Response to treatment - Improvement Plan: * Treatment: 2. P koffi leost P rocedure: 90426-Wvbc Destruction, 1-14 3. T inea unguium P rocedure: 31594-LUBIWRB NAIL, 6 OR MORE * Procedures: D ebride Nail 6-10: Nail debridement D ue to the clinical pathology outlined in the exam findings, performance of this nail treatment is medically necessary as its management by an unskilled/untrained nonprofessional would put this patients foot and overall health at risk. Therefore, debridement to affected nail(s), as described in exam ( T A, T1, T2, T3, T4, T5, T6, T7, T8, T9 ) , was performed exclusively by the physician of record to reduce/remove overall nail length, girth, thickness, subungual debris, and necrotic tissue, by manual and/or electrical means through the use of a nail nipper and/or dremel-type precision jig grinder, to a more viable healthy nail [...] to maintain effectiveness in symptomatic relief - 76900. K eratoma Treatment: Parring or Cutting of Benign Hyperkeratotic Lesion(s) ( -57) More than 4 Lesions - Due to the at risk nature of the patients medical condition as documented in the exam findings, performance of this keratoderma treatment is medically necessary as its management by an unskilled/untrained nonprofessional would put this patients foot and overall health at risk. Therefore, the benign hyperkeratotic lesions, (9) in total, locations as stated and described in the exam ( D orsal, P IPJ, T 9, S UB MTH (s) , 1 , B /L , S UB MTH (s) , 2 , B /L , S UB MTH (s) , 3 , B /L , P lantar, H eel(s) , B /L ) , were pared, and/or cut utilizing a sterile 15 blade, tissue nippers, and/or power dremel instrumentation by the physician of record - 69389, Q8. W art Treatment: Procedure V erruca, as described in exam, were debrided to pin-point bleeding margins with sterile 15 surgical blade, silver nitrate chemocautery applied, recomm. immune-boosting meds such as zinc, recomm. follow up with topical chemosurgical agents, Pt defers any other forms of tx - 21453. * Procedure Codes: 1 1721 DEBRIDE NAIL, 6 OR MORE, Modifiers: XS 95402 Wart Destruction, 1-14, Modifiers: XS 95901 TRIM SKIN LESIONS, OVER 4, Modifiers: XS , Q8 * Preventive Medicine: Counseling: D iscussion: - 12: Office or other outpatient visit for the evaluation and management of an established patient, which required a medically appropriate history and/or examination and STRAIGHTFORWARD level of MEDICAL DECISION MAKING, 1 SELF-LIMITED OR MINOR PROBLEM, MINIMAL- NO AMOUNT/COMPLEXITY OF DATA TO BE REVIEWED/ANALYZED, AND MINIMAL RISK OF COMPLICATION/MORBIDITY. The visit on the day of the encounter encompassed interpreting the data and educating the patient as to the nature of their condition, treatment options available according to their individual PMH, meds, allergies, and overall health/living conditions, as well as any potential risks or complications that may occur from a failure to adhere to, and participate in, the recommended course of therapy. The discussion included a complete verbal, and/or written explanation of the examination results, any x-rays taken, the proposed diagnosis, and outline of the treatment plan. A schedule for future care needs was also explained. The patient verbalized an understanding of the instructions at this time and agreed to be an active participant in their treatment. If the patient should think of any questions or concerns after the visit, I have encouraged the patient to call the office. Salazar Cunningham: Eleonora linares recent successful results to treatment, The patient is to cont the rx cream as directed. Screening/Special Tests: F all Risk Screening: N o falls in the past year F ALLS: Screening for Future Fall Risk Have you had any falls with injury in the past year? N o * Follow Up: p rn * Images: * Sign off status: Completed true * Provider: Emmie Martinez DPM Date: 05/23/2025 Generated for Adam lux/Gregorio/Molly on: 05/27/2025 11:43 AM EDT History and Physical Notes * HPI (History of Present Illness) Category Sub-Category Detail Notes Category Not es Skin problems Treatments: Medication ( Ket oconazole 2 percent cream ), states adherence to recommended treatment application At Risk footcare Pt States Last PCP Visit: Date: 03/20/2025 [facility] States traveling to [facility] next month Examination Category Sub-Category Detail Notes Category Not es Dermatologic SKIN FINDINGS: Skin exam reveal s Keratotic lesion(s) located at , Dorsal, PIPJ, T9, SUB MTH (s) , 1 , B/L , SUB MTH (s) , 2 , B/L , SUB MTH (s) , 3 , B/L , Plantar, Heel(s) , B/L , Skin shows approximately 50-60 percent LESS, sign(s) of, erythema, scaling, in a moccasin fashion, no fissure(s) present, B/L VERRUCA: Reveals a Single , m [...]
--- OUTSIDE RECORDS SUMMARY | 2025-05-24 09:00 | XMS_ITS | Encounter Summary ---
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 Name Role Phone Bcek Reyna MD Primary Care Provider [phone] Reason for Referral * Orthopedic (Routine) - Authorized Specialty Diagnoses / Procedures Referred By Roque osegeura Referred To Contact Orthopedic Surgery / Orthopaedic Surgery Diagnoses Rotator cuff arthropathy of left shoulder Chronic left shoulder pain Procedures L Inj/Asp: L subacromial bursa Catrachita Lay PA [address] [address] Phone: tel: fax: Referral ID Status Reason Start Date Expiration Date V isits Requested Visits Authorized [id number] Authorized 05/24/2025 05/24/2026 1 1 Reason for Visit * Reason Comments Follow-up Left shoulder pain. Encounter Details Date Type Department Care Team (Late st Contact Info) Description 05/24/2025 9:00 AM EDT Office Visit Orthopedic Surgery - [place] [address] [address] Catrachita Lay PA [address] [address] Rotator cuff arthropathy of left shoulder (Primary Dx); Chronic left shoulder pain Social History Tobacco Use Types Packs/Day Years Used Date Smoking Tobacco: Never Smokeless Tobacco: Never Alcohol Use Standard Drinks/Week Comments Yes 0 (1 standard drink = 0.6 oz pur e alcohol) WINE Comments Unknown Sex and Gender Information Value Date Recorded Sex Assigned at Not on file Legal Sex Female 3:52 PM EST Gender Identity Not on file Sexual Orientation Not on file documented as of this encounter Last Filed Vital Signs Vital Sign Reading Time Taken Comments Blood Pressure - - Pulse - - Temperature - - Respiratory Rate - - Oxygen Saturation - - Inhaled Oxygen Concentration - - Weight 73 kg (161 lb) 05/24/2025 8:58 AM EDT Height 149.9 cm (4' 11 ) 05/24/2025 8:58 AM EDT Body Mass Index 32.52 05/24/2025 8:58 AM EDT documented in this encounter Progress Notes * NIDIA Langford - 05/24/2025 9:00 AM EDTAssociated Order(s): L Inj/Asp: L subacromial bursa Post-Procedure Diagnose(s): Chronic left shoulder pain; Rotator cuff arthropathy of left shoulder Patient: Natalia Beverly : 1935 Date: 05/24/2025 Reason For Visit: Chief Complaint Patient presents with Follow-up Left shoulder pain. Natalia Beverly is a 89 y.o. year old right handed female who presents for follow-up evaluation regarding Chief Complaint Patient presents with Follow-up Left shoulder pain. Significant past history: Occupation: retired Previous surgeries/injuries to affected shoulder: none Previous surgeries/injuries to neck. 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 I have advised Natalia Beverly that she may refuse the recording and require the recording to be turned off at any time during this encounter. HPI: History of Present Illness The patient presents with left shoulder pain. Left Shoulder Pain - She is right-handed and reports experiencing anterior and superior shoulder pain in her left shoulder, which does not extend distal to the elbow. - The pain intensity varies, with a rating of 8/10 at rest and 10/10 nocturnally, significantly disrupting her sleep. - Activities such as hair grooming exacerbate the pain, fluctuating between 6 and 8/10. - She finds dressing and performing hygiene tasks challenging. - Despite occasional improvement, the pain persists. - She has not participated in physical therapy since her arm surgery but adheres to a home exerciseregimen utilizing a all system. - Pain management includes acetaminophen 500 mg, two tablets up to three times daily, and tramadol. - She is unable to take arthritis medications due to her use of Xarelto. - Approximately one year ago, she received an intra-articular injection in her left shoulder, whichprovided symptomatic relief. - Her right shoulder remains asymptomatic. Cervical Pain - She reports chronic and stable cervical pain, accompanied by numbness and paresthesia in all fingers bilaterally, with greater severity on the left side. - The previous shoulder injection did not alleviate her cervical pain. SOCIAL HISTORY . Uses a all for home exercise. Ongoing treatments: PT: formal PT in past HEP: Home exercise program previously reviewed with the patient to maintain motion Medication management: Tylenol: 1000 mg TIDPRN NSAIDs: Contraindicated maintained on Xarelto Injection therapy: Left subacromial Kenalog injection: 05/16/2024: excellent relief for about 6 months Diagnostic studies previously performed: Xray shoulder: 05/16/2024 CT scan Shoulder: None to date MRI scan Shoulder: None to date Other studies: None to date ACTIVE MEDICATIONS: Current Outpatient Medications Medication Instructions albuterol HFA (PROAIR HFA ; PROVENTIL HFA ; VENTOLIN HFA) 90 mcg/actuation inhaler 2 puffs, Every 4hours PRN jyiofbhaxf-idvepykbdeekb-sxpcmfry 50-300-40 mg capsule Take by mouth. calcium carbonate-vitamin D 500 mg-5 mcg (200 unit) per tablet Daily cholecalciferol (VITAMIN D-3) 25 mcg (1,000 unit) tablet Take by mouth. furosemide (LASIX) 20 mg, oral, Daily, Take an extra tablet once daily as needed for increased lower extremity swelling-please notify the office first. gabapentin (NEURONTIN) 300 mg capsule 1 capsule, 2 times daily losartan (COZAAR) 100 mg tablet 1 tablet, Daily magnesium 250 mg tablet 1 tablet, Daily montelukast (SINGULAIR) 10 mg, Nightly multivit-min/folic acid/lutein (CENTRUM SILVER ORAL) Take by mouth. spironolactone (ALDACTONE) 25 mg, oral, Daily terazosin (HYTRIN) 5 mg, Nightly traMADoL (ULTRAM) 50 mg, Every 6 hours PRN Xarelto 20 mg, oral, Daily ALLERGIES: Allergies Allergen Reactions Benzoin Latex Prednisone Physical Exam: Estimated body mass index is 32.52 kg/m?? as calculated from the following: Height as of this encounter: 1.499 m (59 ). Weight as of this encounter: 73 kg (161 lb). Physical Exam APPEARANCE: Alert and in no acute distress Shoulder: Left Inspection: No bony abnormalities, normal muscle bulk symmetry Vascular: Warm and well perfused in the affected extremity Palpation: AC joint/distal clavicle region: None anterior shoulder /proximal biceps region: Pain posterior periscapular region: Mild pain lateral acromial /greater tuberosity region: None Range of motion: Abduction: 160 degrees Forward Flexion: 160 degrees External Rotation: No active external rotation, 10 degrees with a soft endpoint limited by pain Internal Rotation: Internal rotation at L2 Muscle strength: Supraspinatus (empty can test): 4/5 with pain infraspinatus (external rotation strength with arm at the side): 3/5 with pain subscapularis (belly press test): 5/5 with pain Special tests: Painful arc test: Positive painful arc starting at 80 degrees Impingement Test: Positive Cotton: Positive Gates's: Pain with Gates's Additional exam details: None Labs: Lab Results Component Value Date CREATININE 0.52 02/18/2025 No results found for: HGBA1C Imaging: ORTHO X-RAY EXAM OF SHOULDER (2 VIEWS) Date of Visit: 05/16/24 Reason for visit: left shoulder pain Views: A/P, grashey, Y-view, axillary left shoulder Comparison: none Findings: No acute fracture or dislocation is seen. There is no evidence of malalignment. Scapular Y shows the humeral head to be centered. Significant degenerative changes noted. Moderate narrowing of the acromioclavicular joint. Humeral head appears smooth. On the true AP view the glenohumeral space is narrowed with periarticular osteophytes noted. High riding humeral head with almost complete loss of subacromial space. Sclerosing of under surface of acromion ans superior humeral head Impression: Advanced degenerative changes of left Shoulder with rotator cuff arthropathy findings and moderate glenohumeral degenerative changes. Read by: Catrachita Lay PA-C Diagnosis: 1. Rotator cuff arthropathy of left shoulder 2. Chronic left shoulder pain Assessment & Plan Left shoulder pain Persistent pain rated 8/10 at rest and 10/10 at night. Exacerbated by activities like doing her hair and dressing, with functional pain levels 6-8/10. Pain management includes Tylenol 1000 mg up to three times a day and tramadol. Administered subacromial injection today, resulting in 30% improvement. Numbing medicine may wear off by tomorrow, potentially causing increased soreness, manageable with ice and Tylenol. Full effect of cortisone may take up to two weeks. -Activity: proceed with activity as tolerated. stay below pain threshold. -Pain Management: Tylenol 1000 mg up to three times a day, tramadol, subacromial injection. Follow-up: Scheduled for 6 months for another injection in the left shoulder. - Post-Procedural Discussion: Patient reported 30% improvement immediately after injection. Advisednumbing medicine would make the patient feel good today, but might have more pain tomorrow. Cortisone may take up to 2 weeks to fully take effect. Recommended ice and Tylenol if sore tomorrow. Diagnostic studies: Shoulder X-rays: 05/16/2024 Shoulder MRI: not indicated at this time Rehabilitation: Continue HEP and Recommend bed bug exterminator No orders of the defined types were placed in this encounter. Follow up in about 6 months (around 11/24/2025) for Injection, Left, Shoulder. Future appointments: Visit date not found Procedure: L Inj/Asp: L subacromial bursa Indications: pain Details: 22 G needle, posterior approach Medications: 3 mL BUPivacaine HCl 0.5 %; 3 mL lidocaine 1 %; 40 mg triamcinolone acetonide 40 mg/mL Informed Consent: Laterality: Left Relevant images/test results available and reviewed: no Health status cleared: N/A Procedure/treatment, purpose, treatment alternatives, risks/potential complications and benefits explained: yes Risk/complications/benefits details: Risks and benefits associated with the injection reviewed which can include but not limited to infection, bleeding, bruising, transient synovitis, no improvement in symptoms. Patient questions answered: yes Patient agrees, verbalizes understanding, and wants to proceed: yes Consent given by: Patient Informed consent discussion completed by Physician/JAYCE with patient: Verbal Pre-procedure timeout performed: yes Post injection instructions given and patient advised to ice the area tonight. Questions answered. Patient tolerated procedure well. No complications encountered. Post injection examination revealed: 30 percent improvement in clinical exam and pain ROM ER increased to 40 degrees Today's documentation was made using voice recognition software.This note may contain grammatical errors secondary to this software. NIDIA Langford documented in this encounter Plan of Treatment Upcoming Encounters Date Type Department Care Team (Late st Contact Info) Description 08/05/2025 9:00 AM EST Appointment [facility] [address] [place] [address] 08/05/2025 9:30 AM EST Appointment [facility] [address] [place] [address] 11/27/2025 9:00 AM EST Office Visit Orthopedic Surgery - [place] [address] [facility] [address] [place] [address] Catrachita Lay PA [address] [facility] [address] [place] [address] documented as of this encounter Procedures Procedure Name Priority Date/Time Associated Diagnosis Comments WI ARTHROCENTESIS/ASPI RATION/INJECTION MAJOR JOINT/BURSA W/O U/S GUIDANCE Routine 05/24/2025 9:00 AM EDT Rotator cuff arthropathy of left shoulder Chronic left shoulder pain documented in this encounter Results * WI ARTHROCENTESIS/ASPIRATION/INJECTION MAJOR JOINT/BURSA W/O U/S GUIDANCE (05/24/2025 9:00 AM EDT) Narrative Catrachita Lay PA - 05/24/2025 9:00 AM EDT NIDIA Langford 05/24/2025 9:39 AM L Inj/Asp: L subacromial bursa Indications: pain Details: 22 G needle, posterior approach Medications: 3 mL BUPivacaine HCl 0.5 %; 3 mL lidocaine 1 %; 40 mg triamcinolone acetonide 40 mg/mL Informed Consent: Laterality: Left Relevant images/test results available and reviewed: no Health status cleared: N/A Procedure/treatment, purpose, treatment alternatives, risks/potential complications and benefits explained: yes Risk/complications/benefits details: Risks and benefits associated with the injection reviewed which can include but not limited to infection, bleeding, bruising, transient synovitis, no improvement in symptoms. Patient questions answered: yes Patient agrees, verbalizes understanding, and wants to proceed: yes Consent given by: Patient Informed consent discussion completed by Physician/JAYCE with patient: Verbal Pre-procedure timeout performed: yes us Catrachita JACOB IN CLINIC/BEDSIDE ORDERABLES Final Result documented in this encounter Visit Diagnoses Diagnosis Rotator cuff arthropathy of left shoulder- Primary Chronic left shoulder pain Pain in joint, shoulder region Encounter for screening mammogram for breast cancer documented in this encounter Administered Medications Inactive Administered Medications - up to 3 most recent administrations Medication Order MAR Action Action Date Dose Rate Site BUPivacaine HCl (MARCAINE) 0.5 % injection 3 mL 3 mL, injection, Once PRN Procedure, Starting on Tue05/24/25 at 0900, For 1 doseIndications:Rotator cuff arthropathy of left shoulder,Chronic left shoulder pain Given 05/24/2025 9:00 AM EDT 3 mL lidocaine (XYLOCAINE) 1 % injection 3 mL 3 mL, injection, Once PRN Procedure, Starting on Tue05/24/25 at 0900, For 1 doseIndications:Rotator cuff arthropathy of left shoulder,Chronic left shoulder pain Given 05/24/2025 9:00 AM EDT 3 mL triamcinolone acetonide (KENALOG-40) 40 mg/mL injection 40 mg 40 mg, intra-articular, Once PRN Procedure, Starting on Tue05/24/25 at 0900, For 1 doseIndications:Rotator cuff arthropathy of left shoulder,Chronic left shoulder pain Given 05/24/2025 9:00 AM EDT 40 mg documented in this encounter Care Teams Chef Broiler Or Fry Relationship Specialty Start Date End Date Beck Reyna MD [address] [place] [address] Dr Mena, [place] [address] PCP - General Internal Medicine 09/01/12 documented as of this encounter
--- NOTE | 2025-05-27 10:50 | A.OFFPC_ITS ---
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 Accompanied by: Spouse Allergies latex Allergy (Intermediate, Verified 05/27/25 10:50) Itching prednisone Adverse Reaction (Severe, Verified 05/27/25 10:50) mouth sores benzoin Adverse Reaction (Intermediate, Verified 05/27/25 10:50) rash HPI HPI Comments History of Present Illness Details 89-year-old female with history of hyper tension, GERD, asthma, venous insufficiency, osteoporosis, paroxysmal atrial fibrillation, heart failure preserved ejection fraction, and multifocal osteoarthritis presenting to the office today accompanied by her for management of chronic conditions and to establish care. Paroxysmal atrial fibrillation-following with [facility], Dr. Cuello. Reports 2 separate episodes about 10 years ago, unprovoked per her report. On Xarelto for anticoagulation. Denies any bleeding episodes. Not on rate control. Hypertension-blood pressure on recheck 140/72. Compliant with losartan 100 mg daily, furosemide 20 mg daily, spironolactone 25 mg daily. History bilateral pulmonary embolism-provoked following surgery 1976. Per Card iology, indefinite anticoagulation with Xarelto Asthma-stable, no recent exacerbation. Compliant with maintenance inhalers, rare use of rescue Osteoporosis-on calcium and vitamin-D. DEXA scan schedule afib- last episode twice, last episode [address] Cuello, [facility] Bilateral PE- 1972, but lifelong AC. On Xarelto Osteoarthritis-tramadol Concerns: None Health maintenance: Mammograms-next scheduled in 2 months-[facility] DEXA scan-next scheduled in 2 months-[facility] ROS: General: No fevers, malaise, unintentional weight loss HEENT: No blurred vision, diplopia. No sore throat, nasal congestion, rhinorrhea, sinus pain, ear pain Cardiovascular: No chest pain, palpitations, or leg edema Respiratory: No shortness of breath, wheezing, cough GI: No abdominal pain, nausea, vomiting, diarrhea, constipation, melena, hematochezia : No dysuria, hematuria, increased urinary frequency, decreased urinary output MSK: No myalgia, back pain Neuro: No headaches, weakness, paresthesias Skin: No rashes or lesions EXAM: Constitutional - Awake and Alert, No apparent distress Eyes - PERRL Cardiovascular - S1S2, RRR, No edema Respiratory - Normal lung expansion, Normal respiratory effort, No respiratory distress, CTA bilaterally Extremities - no calf tenderness bilaterally, no swelling Skin - Warm/Dry Neurological - Alert & oriented x3 Psychological - Appropriate affect [facility] Medical History (Updated 05/27/25 @ 11:33 by NIDIA Hankins) Bilateral pulmonary embolism Rectal polyp Atrial septal aneurysm Chest pain Absence of lobe of lung Secondary hypercoagulable state Nonrheumatic aortic (valve) stenosis Dyspnea on exertion Diastolic heart failure Rectal mass Hammer toe Hx of lipoma Atrial fibrillation Asthma Hiatal hernia Left shoulder pain Headache, cervicogenic Osteoporosis 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 Osteoarthritis Sciatica Pneumonia Venous insufficiency Diverticulitis COPD (chronic obstructive pulmonary disease) Leg cramps Insomnia Sinusitis GERD (gastroesophageal reflux disease) Hypertension Surgical History (Updated 05/23/25 @ 16:47 by Ellen Flower) History of surgery on arm History of surgery on wrist History of bilateral cataract extraction Hx of shoulder surgery History of left knee replacement History of carpal tunnel release History of lobectomy of lung Hx of foot surgery Hx of section History of esophagogastroduodenoscopy (EGD) (~12/06/24) H/O colonoscopy Status post revision of total knee replacement History of total knee replacement (TKR) H/O total hysterectomy H/O vein stripping Social History Household Members: Spouse Housing: House Are you a primary critical care nurse specialist to a significant other at home: No Do you presently have visiting nurse or other home services: No Alcohol intake: current Alcohol intake frequency: holidays/special occasions only Patient Tobacco Use Status: Never used Tobacco service: No Questionnaire PHQ-9 Over the last 2 weeks, how often have you been bothered by any of the following problems? 1. Little interest or pleasure in doing things: not at all 2. Feeling down, depressed, or hopeless: not at all 3. Trouble falling or staying asleep, or sleeping too much: not at all 4. Feeling tired or having little energy: not at all 5. Poor appetite or overeating: not at all 6. Feeling bad about yourself - or that you are a failure or have let yourself or your family down: not at all 7. Trouble concentrating on things, such as reading the newspaper or watching television: not at all 8. Moving or speaking so slowly that other people could have noticed. Or the opposite - being so fidgety or restless that you have been moving around a lot more than usual: not at all 9. Thoughts that you would be better off or of hurting yourself in some way: not at all Total score: 0 Source: Developed by Drs. Duke Zhao, Francoise Baeza, Arturo Mcneill and colleagues, with an educational aria from [employer]. Thrive Questionnaire Date Thrive assessed: 02/07/25 Physical exam (Primary Care) Vital Signs: Last Vital Signs Temp 98.3 F 05/27/25 10:57 Pulse 62 05/27/25 10:57 Resp 18 05/27/25 10:57 BP 160/72 H 05/27/25 10:57 Pulse Ox 95 05/27/25 10:57 BMI result Body Mass Index 69.9 Tobacco/Smoking Status: Tobacco use Status Patient Tobacco Use Status Never used Tobacco 05/27/25 10:51 PHQ-9: PHQ-9 Score PHQ-9: Total score 0 05/27/25 11:15 Thrive Assessment: Date of Thrive Assessment Date Thrive assessed 02/07/25 05/27/25 10:51 Coding Level of Care Code New Pt Level 4 (00445) Complex EM visit Add On G2211 Diagnoses Hypertension I10 Asthma J45.909 Osteoarthritis M19.90 Atrial fibrillation I48.91 Bilateral pulmonary embolism I26.99 Assessment & Plan Assessment & Plan (1) Hypertension: Code(s): I10 - Essential (primary) hypertension Category: Medical Plan: Improved, borderline. Continue losartan 100 mg daily, furosemide, spironolactone. Counseled on low-sodium diet. (2) Asthma: Code(s): J45.909 - Unspecified asthma, uncomplicated Category: Medical Plan: Stable. Continue maintenance inhalers, albuterol as needed (3) Osteoarthritis: Code(s): M19.90 - Unspecified osteoarthritis, unspecified site Category: Medical Plan: Continue tramadol. Two month supply requested (4) Atrial fibrillation: Code(s): I48.91 - Unspecified atrial fibrillation Category: Medical Plan: Rate controlled. Continue Xarelto for anticoagulation. Continue following with [facility] (5) Bilateral pulmonary embolism: Comment: indefinite ac Code(s): I26.99 - Other pulmonary embolism without acute cor pulmonale Category: Medical Plan: Continue Xarelto Plan Follow-up in 3 months. Labs to be completed following visit today. Orders: Orders Basic Metabolic Panel Today I10 - Essential (primary) hypertension, J44.9 - Chronic obstructive pulmonary disease, unspecified, K21.9 - Gastro-esophageal reflux disease without esophagitis, M81.0 - Age-related osteoporosis without c urrent pathological fracture Hemoglobin A1c Today I10 - Essential (primary) hypertension, J44.9 - Chronic obstructive pulmonary disease, unspecified, K21.9 - Gastro-esophageal reflux disease without esophagitis, M81.0 - Age-related osteoporosis without current pathological fracture Lipid Panel Today I10 - Essential (primary) hypertension, J44.9 - Chronic obstructive pulmonary disease, unspecified, K21.9 - Gastro-esophageal reflux disease without esophagitis, M81.0 - Age-related osteoporosis without current pathological fracture Complete Blood Count Auto Diff Today I10 - Essential (primary) hypertension, J44.9 - Chronic obstructive pulmonary disease, unspecified, K21.9 - Gastro- esophageal reflux disease without esophagitis, M81.0 - Age-related osteoporosis without current pathological fracture Medications: Changed From tramadol 50 mg PO DAILY PRN 30 tabs 0RF Pain To tramadol 50 mg PO BID PRN 60 tabs 0RF Pain
[2025-05-27 10:57] VITALS: BP 160/72; PULSE 62; RESP 18; TEMP 36.8; O2SAT 95; BMI 69.9
[2025-05-27 11:33] VITALS: BP 140/72
== END 2025-05-27 11:22 | disposition home or self-care (01) ==
LOC: HO.HMCHD 10:34
PROVIDERS: PCP Family Medicine; Visit Provider Physician Assistant
DX: I10 Essential (primary) hypertension (principal); J45.909 Unspecified asthma, uncomplicated; M19.90 Unspecified osteoarthritis, unspecified site; I48.91 Unspecified atrial fibrillation; I26.99 Other pulmonary embolism without acute cor pulmonale

== ENCOUNTER → 2025-05-27 10:32 | Outpatient (BNVA) | payer MEDICARE, SELFPAY | PROVIDERS: PCP Family Medicine; Visit Provider Physician Assistant | DX: I10 Essential (primary) hypertension (principal); J45.909 Unspecified asthma, uncomplicated; M19.90 Unspecified osteoarthritis, unspecified site; I48.91 Unspecified atrial fibrillation; I26.99 Other pulmonary embolism without acute cor pulmonale; Z79.01 Long term (current) use of anticoagulants; Z79.891 Long term (current) use of opiate analgesic; Z79.899 Other long term (current) drug therapy; Z13.30 Encounter for screening examination for mental health and behavioral disorders, unspecified | CPT/HCPCS: 96127; 99202 ==

== ENCOUNTER 2025-05-27 11:32 | Outpatient (REF) | payer MEDICARE, SELFPAY ==
[2025-05-27 13:19] LABS: MANUAL DIFF FLAG NO
[2025-05-27 13:31] LABS: Hematocrit 31.4 % (37.0-47.0); Hemoglobin 10.5 g/dl (12.0-16.0); Imm Gran Abs Auto 0.04 X10*3/uL (0.00-0.03); Imm Gran Pct Auto 0.5 % (0.0-0.4); Lymphocytes Absolute Auto 0.9 X10*3/uL (1.2-4.9); Mean Corpuscular HGB Conc 33.4 g/dl (31.0-35.0); Mean Corpuscular Hemoglobin 32.2 pg (27.0-33.0); Mean Corpuscular Volume 96.3 fL (80.0-98.0); NRBC Abs Auto 0.000 X10*3/uL (0.0-0.012); NRBC Pct Auto 0.0 /100WBC (0.0-0.2); Platelet Count 210 X10*3/uL (160-400); Red Blood Count 3.26 X10*6/uL (4.20-5.50); White Blood Count 7.4 X10*3/uL (4.8-10.8)
[2025-05-27 13:36] LABS: Hemoglobin A1C 102.9306 umol/L; Total Hemoglobin (HGBA1C) 2810.4990 umol/L
[2025-05-27 13:48] LABS: Anion Gap 12 (12-20); Blood Urea Nitrogen 27 mg/dL (9-16); Calcium 9.3 mg/dL (8.4-10.2); Carbon Dioxide 28 mmol/L (22-29); Chloride 101 mmol/L (96-108); Cholesterol 188 mg/dL (<200); Estimated Glomerular Filt Rate > 60; HDL Cholesterol 75 mg/dL (>40); Potassium 4.4 mmol/L (3.3-5.1); Sodium 137 mmol/L (135-145); Triglycerides 53 mg/dL (<150)
== END 2025-05-27 11:33 | disposition home or self-care (01) ==
LOC: HO.10HDL 11:32
PROVIDERS: Visit Provider Physician Assistant
DX: Z13.1 Encounter for screening for diabetes mellitus (principal); I10 Essential (primary) hypertension; M81.0 Age-related osteoporosis without current pathological fracture; K21.9 Gastro-esophageal reflux disease without esophagitis; J44.9 Chronic obstructive pulmonary disease, unspecified
CPT/HCPCS: 36415; 80048; 80061; 83036; 85025

== ENCOUNTER 2025-08-27 09:30 | Outpatient (AMB) | payer MEDICARE, SELFPAY ==
--- NOTE | 2025-08-27 09:32 | A.OFFPC_ITS ---
Vital Signs 08/27/25 09:42 Height 4 ft 10.27 in Weight 71.668 kg BMI 32.7 BP 126/62 Blood Pressure Location Rt brachial Position Sitting Respiration 20 Pulse 67 Pulse Source Pulse Oximeter Temp 97.8 F Temp Source Temporal Artery Scan Pulse Oximetry (%) 94 Oxygen Delivery Method Room Air Intake Visit Reasons: 3 month f/u Hand Cooper Helper Required: No Accompanied by: Spouse Allergies latex Allergy (Intermediate, Verified 08/27/25 09:33) Itching prednisone Adverse Reaction (Severe, Verified 08/27/25 09:33) mouth sores benzoin Adverse Reaction (Intermediate, Verified 08/27/25 09:33) rash Medication List - Last Reconciled 08/27/25 by NIDIA Hankins albuterol sulfate 90 mcg/actuation 1 puff inhalation QID PRN betamethasone dipropionate 0.05% 1 appl topical BID PRN betamethasone, augmented 0.05 % appl topical budesonide-formoterol 160-4.5 mcg/actuation (Breyna) 2 inhalations inhalation BID xyrjztktmq-axpcskmvfonke-nqjp 50-300-40 mg 1 cap PO Q12H PRN calcium carbonate (Calcium 600) 1,200 mg PO DAILY cholecalciferol (vitamin D3) 25 mcg PO DAILY furosemide 20 mg PO DAILY gabapentin 300 mg PO BEDTIME ipratropium-albuterol 0.5 mg-3 mg(2.5 mg base)/3 mL 3 mL inhalation QID ketoconazole 2% appl topical BID losartan 100 mg DAILY magnesium 250 mg PO DAILY montelukast 10 mg PO BEDTIME multivit with min-folic acid 80 mcg (Centrum Adult 50 Plus) 1 tab PO DAILY rivaroxaban (Xarelto) 20 mg DAILY Held on 02/08/25. Instructions: Resume on 02/11/25. spironolactone 25 mg PO DAILY terazosin 5 mg BEDTIME tramadol 50 mg PO BID PRN Tobacco use date assessed: 08/27/25 Fall risk assessment: No Falls in past year Last assessed Fall Risk: 08/27/25 Dental Screening Dental Screen Date: 08/27/25 Did you have a dental visit in the last 12 months?: Yes Did you have a dental problem in the last 6 months where you did not have access to dental care?: No Was dental information given to patient?: Patient has dentist HPI HPI Comments History of Present Illness Details 89-year-old female with history of hyper tension, GERD, asthma, venous insufficiency, osteoporosis, paroxysmal atrial fibrillation, heart failure preserved ejection fraction, and multifocal osteoarthritis presenting to the office today accompanied by her for management of chronic conditions. Paroxysmal atrial fibrillation-following with [facility], Dr. Cuello, will see next month. No chest pain, palpitations, lightheadedness, shortness of breath. On Xarelto for anticoagulation. Denies any bleeding episodes. Not on rate control. Hypertension-blood pressure on recheck 140/72. Compliant with losartan 100 mg daily, furosemide 20 mg daily, spironolactone 25 mg daily. History bilateral pulmonary embolism-provoked following surgery 1976. Per Cardiology, indefinite anticoagulation with Xarelto Asthma-stable, no recent exacerbation. Compliant with maintenance inhalers, rare use of rescue Osteoporosis-on calcium and vitamin-D. DEXA scan up-to-date but unavailable for review. Will request records. She is taking calcium and vitamin-D and participating in weight-bearing exercise. She did take Fosamax years ago, stopped about 5 years ago. No adverse side effects Bilateral PE- 1972, but lifelong AC. On Xarelto Osteoarthritis- Chronic pain- shoulder neck, back. Worse. Tramadol is helpful. No falls. Nocturnal leg- on gabapentin but not helpful ?Dexa- taking multivitamin and calcium/vitamin D. Previously on fosamax, was on for 5 years. Dexa scan not available, but will request. Does home exercises Health maintenance: Mammograms- 08/05, category B fibrodensity, no malignancy DEXA scan-08/05- will request records FLu shot UTD ROS: General: No fevers, malaise, unintentional weight loss HEENT: No blurred vision, diplopia. No sore throat, nasal congestion, rhinorrhea, sinus pain, ear pain Cardiovascular: No chest pain, palpitations, or leg edema Respiratory: No shortness of breath, wheezing, cough GI: No abdominal pain, nausea, vomiting, diarrhea, constipation, melena, hematochezia : No dysuria, hematuria, increased urinary frequency, decreased urinary output MSK: No myalgia. see hpi Neuro: No headaches, weakness, paresthesias Skin: No rashes or lesions EXAM: Constitutional - Awake and Alert, No apparent distress Eyes - PERRL Cardiovascular - S1S2, RRR, No edema Respiratory - Normal lung expansion, Normal respiratory effort, No respiratory distress, CTA bilaterally Extremities - no calf tenderness bilaterally, no swelling Skin - Warm/Dry Neurological - Alert & oriented x3 Psychological - Appropriate affect [facility] Medical History (Updated 08/27/25 @ 10:02 by NIDIA Hankins) Bilateral pulmonary embolism Rectal polyp Atrial septal aneurysm Chest pain Absence of lobe of lung Secondary hypercoagulable state Nonrheumatic aortic (valve) stenosis Dyspnea on exertion Diastolic heart failure Rectal mass Hammer toe Hx of lipoma Atrial fibrillation Asthma Hiatal hernia Left shoulder pain Headache, cervicogenic Osteoporosis 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 Osteoarthritis Sciatica Pneumonia Venous insufficiency Diverticulitis COPD (chronic obstructive pulmonary disease) Leg cramps Insomnia Sinusitis GERD (gastroesophageal reflux disease) Hypertension Surgical History (Updated 05/23/25 @ 16:47 by Ellen Flower) History of surgery on arm History of surgery on wrist History of bilateral cataract extraction Hx of shoulder surgery History of left knee replacement History of carpal tunnel release History of lobectomy of lung Hx of foot surgery Hx of section History of esophagogastroduodenoscopy (EGD) (~12/06/24) H/O colonoscopy Status post revision of total knee replacement History of total knee replacement (TKR) H/O total hysterectomy H/O vein stripping Social History Household Members: Spouse Housing: House Are you a primary palliative care specialist to a significant other at home: No Do you presently have visiting nurse or other home services: No Alcohol intake: current Alcohol intake frequency: holidays/special occasions only Patient Tobacco Use Status: Never used Tobacco e-Cigarette/Vaping Use: Never Used service: No Current occupational status: retired Questionnaire PHQ-9 Over the last 2 weeks, how often have you been bothered by any of the following problems? 1. Little interest or pleasure in doing things: not at all 2. Feeling down, depressed, or hopeless: not at all 3. Trouble falling or staying asleep, or sleeping too much: not at all 4. Feeling tired or having little energy: not at all 5. Poor appetite or overeating: not at all 6. Feeling bad about yourself - or that you are a failure or have let yourself or your family down: not at all 7. Trouble concentrating on things, such as reading the newspaper or watching television: not at all 8. Moving or speaking so slowly that other people could have noticed. Or the opposite - being so fidgety or restless that you have been moving around a lot more than usual: not at all 9. Thoughts that you would be better off or of hurting yourself in some way: not at all Total score: 0 Source: Developed by Drs. Duke Zhao, Francoise Baeza, Arturo Mcneill and colleagues, with an educational aria from [employer]. Thrive Questionnaire Date Thrive assessed: 02/07/25 I am a: Patient What is your living situation today?: I have a steady place to live Within the past 12 months, did the food you bought not last and you didn't have the money to get more?: Never true Within the past 12 months, did you worry whether your food would run out before you got money to buy more?: Never true Do you have trouble paying for medicines?: No Do you have trouble getting transportation to medical appointments?: No Do you have trouble paying your heating and electricity bill?: No Do you have trouble taking care of your child, family member or friend?: No Do you have trouble with day-to-day activities such as bathing, preparing meals, shopping, managing finances, etc.?: No Are you currently unemployed and looking for a job?: No Are you interested in more education?: No THRIVE Score: 0 AUDIT C Alcohol Use Questionnaire (AUDIT-C) 1. How often do you have a drink containing alcohol?: 2-4 times a month 2. How many drinks containing alcohol do you have on a typical day when you are drinking?: 1 or 2 3. How often do you have six or more drinks on one occasion?: Never Total Score: 2 KIKO-7 AMB Questionnaire KIKO-7 Date KIKO - 7 assessed: 08/27/25 Feeling nervous, anxious, or on edge: 0 = Not at all Not being able to stop or control worryin = Not at all Worrying too much about different things: 0 = Not at all Trouble relaxin = Not at all Being so restless that it is hard to sit still: 0 = Not at all Becoming easily annoyed or irritable: 0 = Not at all Feeling afraid as if something awful might happen: 0 = Not at all Total KIKO-7 score (0-4 normal; 5-9 mild; 10-14 moderate; 15-21 severe): 0 Source: Developed by Drs. Duke Zhao, Francoise Baeza, Arturo Mcneill and colleagues, with an educational aria from [employer]. Physical exam (Primary Care) Vital Signs: Last Vital Signs Temp 97.8 F 08/27/25 09:42 Pulse 67 08/27/25 09:42 Resp 20 08/27/25 09:42 BP 126/62 08/27/25 09:42 Pulse Ox 94 08/27/25 09:42 Oxygen Delivery Method Room Air 08/27/25 09:42 BMI result Body Mass Index 32.7 Tobacco/Smoking Status: Tobacco use Status Tobacco use date assessed 08/27/25 08/27/25 09:33 Patient Tobacco Use Status Never used Tobacco 08/27/25 09:33 e-Cigarette/Vaping Use Never Used 08/27/25 09:45 PHQ-9: PHQ-9 Score PHQ-9: Total score 0 08/27/25 09:54 Thrive Assessment: Date of Thrive Assessment Date Thrive assessed 02/07/25 08/27/25 09:33 Coding Level of Care Code Est Pt Level 4 (02813) Complex visit Add On G2211 Diagnoses Hypertension I10 Asthma J45.909 Osteoarthritis M19.90 Atrial fibrillation I48.91 Bilateral pulmonary embolism I26.99 Assessment & Plan Assessment & Plan (1) Hypertension: Code(s): I10 - Essential (primary) hypertension Category: Medical Plan: Controlled Continue losartan 100 mg daily, furosemide, spironolactone. Counseled on low-sodium diet. (2) Asthma: Code(s): J45.909 - Unspecified asthma, uncomplicated Category: Medical Plan: Stable. Continue maintenance inhalers, albuterol as needed (3) Osteoarthritis: Code(s): M19.90 - Unspecified osteoarthritis, unspecified site Category: Medical Plan: Continue tramadol. Refill provided (4) Atrial fibrillation: Code(s): I48.91 - Unspecified atrial fibrillation Category: Medical Plan: Rate controlled. Continue Xarelto for anticoagulation. Continue following with [facility] (5) Bilateral pulmonary embolism: Comment: indefinite ac Code(s): I26.99 - Other pulmonary embolism without acute cor pulmonale Category: Medical Plan: Continue Xarelto Plan Follow-up in 3 months. Labs to be completed several days prior to visit and today for evaluation of fatigue Orders: Orders Basic Metabolic Panel 3 Months I10 - Essential (primary) hypertension, I48.91 - Unspecified atrial fibrillation, M19.90 - Unspecified osteoarthritis, unspecified site TSH reflex Free T4 Today I10 - Essential (primary) hypertension, I48.91 - Unspecified atrial fibrillation, M19.90 - Unspecified osteoarthritis, unspecified site, R53.83 - Other fatigue IRON PROFILE Today I10 - Essential (primary) hypertension, I48.91 - Unspecified atrial fibrillation, M19.90 - Unspecified osteoarthritis, unspecified site, R53.83 - Other fatigue Vitamin B12 Today I10 - Essential (primary) hypertension, I48.91 - Unspecified atrial fibrillation, M19.90 - Unspecified osteoarthritis, unspecified site, R53.83 - Other fatigue Complete Blood Count Auto Diff 3 Months I10 - Essential (primary) hypertension, I48.91 - Unspecified atrial fibrillation, M19.90 - Unspecified osteoarthritis, unspecified site, R53.83 - Other fatigue Vitamin D 25-OH Total Today I10 - Essential (primary) hypertension, I48.91 - Unspecified atrial fibrillation, M19.90 - Unspecified osteoarthritis, unspecified site, R53.83 - Other fatigue Medications: New gabapentin 600 mg (2 x 300 mg) PO BEDTIME 180 caps 1RF Refilled tramadol 50 mg PO BID PRN 60 tabs 0RF Pain
[2025-08-27 09:42] VITALS: BP 126/62; PULSE 67; RESP 20; TEMP 36.6; O2SAT 94; BMI 32.7
--- OUTSIDE RECORDS SUMMARY | 2025-08-27 10:58 | XMS_ITS | Clinical Summary ---
Author Organization [address] [place] [address] [place] [phone] Phone Care Team Providers Care Platen Drier Operator Name Role Phone Ingrid Jaffe MD Primary Care Provider [phone] Allergies Active Allergy Reactions Criticality Noted Date [...] mouth 1 (one) time each day. Active montelukast (SINGULAIR) 10 mg tablet Take [...] (one) time each day. 1200mg daily Active rivaroxaban (Xarelto) 20 mg tablet TAKE 1 TABLET DAILY 90 tablet 2 5 Active spironolactone (ALDACTONE) 25 mg tabletIndicatio ns:Chronic diastolic heart failure (CMS/HCC V24, CMS/HCC V28) TAKE 1 TABLET ONCE DAILY 90 tablet 3 5 Active furosemide (LASIX) 20 mg tabletIndicatio ns:Chronic diastolic heart failure (CMS/HCC V24, CMS/HCC V28),Varicose veins of both legs with edema Take 1 tablet (20 mg total) by mouth 1 (one) time each day. Take an extra tablet once daily as needed for increased lower extremity swelling-pleas e notify the office first. 135 each 2 5 Active Active Problems Problem Noted [...] for closed fracture 02/29/2024 Asthma-COPD overlap syndrome ([facility] V24, CMS/H CC V28) 11/28/2023 Secondary hypercoagulable state ([facility] V24) Assessment & Plan (01/06/2025 [...] will continue follow-up with Dr. Patel, her sales technician, as recommended. Diastolic heart failure ([facility] V24, [facility] V2 8) 07/13/2021 Overview (08/28/2024): [...] Encounters Date Type Department Care Team Description 08/05/2025 8:44 AM EST - 08/05/2025 11:59 PM EST [facility] [address] [phone] Encounter for screening mammogram for breast cancer Discharge Disposition: Home or Self Care 08/05/2025 8:43 AM EST - 08/05/2025 11:59 PM EST Hospital Encounter [facility] Bone Density [address] [place] [phone] Asymptomatic menopausal state Discharge Disposition: Home or Self Care from Last 3 Months Surgical History Surgery Date Site/Laterality Comments HYSTERECTOMY Social History Tobacco Use Types Packs/Day Years Used Date Smoking Tobacco: Never Smokeless Tobacco: Never Alcohol Use Standard Drinks/Week Comments Yes 0 (1 standard drink = 0.6 oz pur e alcohol) WINE Comments No Sex and Gender Information Value Date Recorded Sex Assigned at Not on file Legal Sex Female 3:52 PM EST Gender Identity Not on file Sexual Orientation Not on file Obstetrics History Para Term AB IAB SAB Ectopic Multiple Livin g Live Births 1 Last Filed Vital Signs Vital Sign Reading Time Taken Comments Blood Pressure 143/72 01/03/2025 12:39 PM EDT Pulse 56 01/03/2025 12:39 PM EDT Temperature - - Respiratory Rate - - Oxygen Saturation 95% 01/03/2025 12:39 PM EDT Inhaled Oxygen Concentration - - Weight 69.4 kg (153 lb) 08/05/2025 9:23 AM EST Height 149.9 cm (4' 11 ) 08/05/2025 9:23 AM EST Body Mass Index 30.9 08/05/2025 9:23 AM EST Plan of Treatment Upcoming Encounters Date Type Department Care Team (Late st Contact Info) Description 10/01/2025 9:50 AM EST Office Visit [facility] [address] [facility] [address] [place] [phone] Bobby Cuello MD [facility] [address] [place] [phone] 11/27/2025 9:00 AM EST Office Visit [facility] - [place] [address] [facility] [address] [place] [phone] Catrachita Lay PA 175 [facility] [address] [place] [address] Health Maintenance Due Date Last Done Comments Pneumococcal Vaccine: 50+ Years (1 of 2 - PCV) 1956 Zoster Vaccines (1 of 2) 1987 RSV Immunization Adult Patients (1 - 1-dose 75+ series) 2012 Falls Risk Assessment 09/11/2022 Medicare Annual Wellness Visit 09/11/2022 Social Influencers of Health Screening 09/11/2022 Depression Screening 10/03/2024 COVID-19 Vaccine ( season) 2025 05/12/2022, 08/23/2021, 12/18/2020, Additional history exists Influenza Vaccine (#1) 2025 , 07/03/2024, 07/18/2023, Additional history exists Hypertension/CHF/CAD Annual BMP Blood Test 02/18/2026 02/18/2025, 01/15/2025, 01/07/2025, Additional history exists Cholesterol Screening (Lipid Panel) 10/29/2029 10/29/2024 DTaP,Tdap,and Td Vaccines (2 - Td or Tdap) 04/10/2034 04/10/2024 Osteoporosis Screening (Bone Density Screening) 08/05/2035 08/05/2025, 01/10/2018 HIB Vaccines Aged Out No longer eligi [...] Procedure Name Priority Date/Time Associated Diagnosis Comments MG MAMMO DIGITAL SCREENING W JERSON BILAT Routine 08/05/2025 9:36 AM EST Encounter for screening mammogram for breast cancer BD BONE DENSITY DXA AXIAL SKELETON Routine 08/05/2025 9:31 AM EST Asymptomatic menopausal state CREATININE, SERUM Routine 02/18/2025 8:5 0 AM EDT Essential hypertension, benign Anemia LIPID PANEL WITH REFLEX TO DIRECT LDL Routine 10/29/2024 7:55 AM EST Chronic diastolic heart failure (CMS/HCC V24, CMS/HCC V28) Essential hypertension from Last 3 Months or Most Recently Relevant to Health Maintenance Results * MG Mammo Digital Screening w Jerson bilat (08/05/2025 9:36 AM EST) Anatomical Region Laterality Modality Breast Bilateral Mammography 08/05/2025 10:5 1 AM EST Impressions 08/05/2025 10:57 AM EST No evidence of breast malignancy. BI-RADS CATEGORY: 1 - NEGATIVE RECOMMENDATION: Screening bilateral mammogram is recommended in 1 year. Mammo Location: [facility], [address] [place] [address], [address], . -------- FINAL REPORT -------- Dictated By: Kacey Mcfadden Dictated Date: 08/05/2025 10:51 ET Assigned Physician: Kacey Mcfadden Reviewed and Electronically Signed By: Kacey Mcfadden Signed Date: 08/05/2025 10:57 ET Workstation ID: [id number] Transcribed By: Self Edit Transcribed Date: 08/05/2025 10:51 ET Narrative 08/05/2025 10:57 AM EST CLINICAL: 89 years old, Female, routine annual exam. COMPARISON: Double prior studies dating back to 2019 TECHNIQUE: Bilateral MLO and CC views were obtained digitally with 3-D mammogram (digital breast tomosynthesis). Computer-aided detection was utilized in evaluation of this exam (CAD). FINDINGS: There is no evidence of suspicious mass or architectural distortion. No worrisome calcifications are evident. There has been no significant change from prior exam(s). BREAST DENSITY: B - There are scattered areas of fibroglandular density. Procedure Note Kacey Mcfadden MD - 08/05/2025 CLINICAL: 89 years old, Female, routine annual exam. COMPARISON: Double prior studies dating back to 2019 TECHNIQUE: Bilateral MLO and CC views were obtained digitally with 3-Dmammogram (digital breast tomosynthesis). Computer-aided detection wasutilized in evaluation of this exam (CAD). FINDINGS: There is no evidence of suspicious mass or architectural distortion. Noworrisome calcifications are evident. There has been no significantchange from prior exam(s). BREAST DENSITY: B - There are scattered areas of fibroglandular density. IMPRESSION: No evidence of breast malignancy. BI-RADS CATEGORY: 1 - NEGATIVE RECOMMENDATION: Screening bilateral mammogram is recommended in 1 year. Mammo Location: [facility], [address] [place] [address], [address], . -------- FINAL REPORT -------- Dictated By: Kacey Mcfadden Dictated Date: 08/05/2025 10:51 ET Assigned Physician: Kacey Mcfadden Reviewed and Electronically Signed By: Kacey Mcfadden Signed Date: 08/05/2025 10:57 ET Workstation ID: [id number] Transcribed By: Self Edit Transcribed Date: 08/05/2025 10:51 ET us Self Referral Sppl IMG BI PROCEDURES Final Resul t * BD Bone Density DXA Axial Skeleton (08/05/2025 9:31 AM EST) Anatomical Region Laterality Modality Wrist, Hip, L-spine Bone Densito metry 08/12/2025 7:58 AM EST Impressions 08/12/2025 8:00 AM EST 1. Osteopenia. There has been an increase of 6.3% in bone mineral density in the lumbar spine since the prior examination of 01/10/2018. There has been a decrease of 3.1% in bone mineral density in the right femur and a decrease of 2.8% in bone mineral density in the left femur. 2. FRAX analysis yields a 10-year probability of major osteoporotic fracture of 26.4% and a 10-year probability of hip fracture of 9.0%. Code 01120 -------- FINAL REPORT -------- Dictated By: Zelalem Vargas Dictated Date: 08/12/2025 07:58 ET Assigned Physician: Zelalem Vargas Reviewed and Electronically Signed By: Zelalem Vargas Signed Date: 08/12/2025 08:00 ET Workstation ID: [id number] Transcribed By: Self Edit Transcribed Date: 08/12/2025 07:58 ET Narrative 08/12/2025 8:00 AM EST HISTORY: The patient is an 82-year-old postmenopausal female with clinical concern for metabolic bone disease. FINDINGS: Dual energy x-ray absorptiometry of the lumbar spine and femurs is performed. The mean bone mineral density at L1-3 is 1.177 gm/cm2 which is 107% of that of young normals and 124% of that of age matched controls. This yields a T-score of 0.1 and a Z-score of 1.9 and there is therefore no evidence of osteoporosis or osteopenia here. The mean bone mineral density of the femurs bilaterally is 0.733 gm/cm2 which is 73% of that of young normals and 103% of that of age matched controls. This yields a T-score of -2.2 and a Z-score of 0.2 which is diagnostic of osteopenia. Procedure Note Zelalem Vargas MD - 08/12/2025 HISTORY: The patient is an 82-year-old postmenopausal female withclinical concern for metabolic bone disease. FINDINGS: Dual energy x-ray absorptiometry of the lumbar spine and femursis performed. The mean bone mineral density at L1-3 is 1.177 gm/cm2 whichis 107% of that of young normals and 124% of that of age matched controls.This yields a T-score of 0.1 and a Z-score of 1.9 and there is thereforeno evidence of osteoporosis or osteopenia here. The mean bone mineral density of the femurs bilaterally is 0.733 gm/mv7ocwhu is 73% of that of young normals and 103% of that of age matchedcontrols. This yields a T-score of -2.2 and a Z-score of 0.2 which isdiagnostic of osteopenia. IMPRESSION: 1. Osteopenia. There has been an increase of 6.3% in bone mineral densityin the lumbar spine since the prior examination of 01/10/2018. There hasbeen a decrease of 3.1% in bone mineral density in the right femur and adecrease of 2.8% in bone mineral density in the left femur. 2. FRAX analysis yields a 10-year probability of major osteoporoticfracture of 26.4% and a 10-year probability of hip fracture of 9.0%. Code 12280 -------- FINAL REPORT -------- Dictated By: Zelalem Vargas Dictated Date: 08/12/2025 07:58 ET Assigned Physician: Zelalem Vargas Reviewed and Electronically Signed By: Zelalem Vargas Signed Date: 08/12/2025 08:00 ET Workstation ID: [id number] Transcribed By: Self Edit Transcribed Date: 08/12/2025 07:58 ET us Patience Assobmo FINANCE EFFECTIVENESS MANAGER IMG DXA PROCEDURES Final Res ult * Creatinine (02/18/2025 8:50 AM EDT) Creatinine [...] Res ult [facility] [address] [place] [address], [place] [phone] * Lipid panel with reflex to direct [...] 4.4 LAB CHEMISTRY METHOD 10/29/2024 9:55 AM [facility] Blood Venous blood specimen / Unknown Venipuncture / Unknown 10/29/2024 7:55 AM EST 10/29/2024 8:57 AM EST Venecia Hardy FINANCE EFFECTIVENESS MANAGER LAB BLOOD ORDERABLES Final Result [facility] [address] [place] [address], [place] [phone] from Last 3 Months or Most Recently Relevant to Health Maintenance Insurance MEDICARE [facility] Care Teams Platen Drier Operator Relationship Specialty [place] [address] [place] [phone] PCP - General Internal Medicine 08/05/25
--- OUTSIDE RECORDS SUMMARY | 2025-08-27 10:58 | XMS_ITS ---
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 Name Role Phone Unavailable Primary Care Physician Unavailab le History Of Present Illness No Data Allergies, Adverse Reactions, Alerts Substance RxNorm Reaction(s) Severity Status Start Da te latex [id number] unspecified active prednisone 8640 unspecified active Medications Medication Generic Name RxNorm Strength Strength Unit Route Dose Dose Form Frequency Date Started Date Ended Status Indication Sig betamethaso ne, augmented betameth asone, augmente d 644725 0.05 % Topica l apply thin layer to skin cream daily 06/17/20 21 active Appl y spar ingl y to rash on leg twic e chidi y for two week s, then stop for one week . Repe at cycl e as dire cted . ProAir HFA albutero l sulfate 90 mcg/actua tion Inhala tion 2 HFA aeros ol inhal er prn active Symbicort budesoni de-formo terol 160-4.5 mcg/actua tion Inhala tion 2 HFA aeros ol inhal er prn active Fioricet butalbit al-aceta minophen -caff 4680342 50-300-40 mg Oral 1 capsu le daily 08/07/20 14 active gabapentin gabapent in 749733 300 mg Oral 1 capsu le daily 08/07/20 14 active montelukast monteluk ast 471835 10 mg Oral 1 table t daily 01/12/20 16 active terazosin terazosi n 1 mg Oral 1 capsu le daily active tramadol tramadol 50 mg Oral 1 table t daily active Xarelto rivaroxa ban 6388293 15 mg Oral 1 table t daily 08/07/20 14 active Acetaminoph en-Codeine #3 NULL 03/13/20 14 active Advair Diskus NULL 03/13/20 14 active Advair Diskus NULL 03/13/20 14 active Advair Diskus NULL 03/13/20 14 active Amoxicillin NULL 03/13/20 14 active Amoxicillin NULL 03/13/20 14 active Avelox NULL 03/13/20 14 active Azithromyci n NULL 02/06/20 15 active Betamethaso ne Dipropionat e Aug NULL 03/13/20 14 active Biafine NULL 01/14/20 09 active Butalbital- APAP-Caffei ne NULL 04/15/20 17 suspend ed Butalbital- APAP-Caffei ne NULL 03/13/20 14 active Carisoprodo l NULL 03/13/20 14 active Cephalexin NULL 03/13/20 14 active Chlorzoxazo ne NULL 03/13/20 14 active Clindamycin HCl NULL 03/13/20 14 active Cyclobenzap rine HCl NULL 0 16 suspend ed Diclofenac Sodium NULL 09/01/20 17 suspend ed Diovan NULL 03/13/20 14 suspend ed Diprolene AF NULL 07/31/20 09 suspend ed Enoxaparin Sodium NULL 02/06/20 15 suspend ed Fluocinonid e-E NULL 08/05/20 08 active Fluzone High-Dose NULL 14 suspend ed Furosemide NULL 03/13/20 14 active Gabapentin NULL 06/06/20 14 suspend ed Guaifenesin -Codeine NULL 0 17 active HalfLytely with Flavor Packs NULL 03/13/20 14 active Hydrocodone -Acetaminop hen NULL 03/13/20 14 active Hydrocodone -Acetaminop hen NULL 03/13/20 14 active HYDROmorpho ne HCl NULL 03/13/20 14 suspend ed HydrOXYzine Pamoate NULL 03/13/20 14 active Ibuprofen NULL 03/13/20 14 active Iophen C-NR NULL 03/13/20 14 active Lidocaine-P rilocaine NULL 15 suspend ed Losartan Potassium NULL 19 active Nitroglycer in NULL 03/03/20 18 suspend ed Olux-E NULL 01/14/20 09 active Omeprazole NULL 03/13/20 14 suspend ed OxyCODONE HCl NULL 10/17/19 15 suspend ed Oxycodone-A cetaminophe n NULL 03/13/20 14 active PredniSONE NULL 09/01/20 17 active Prevnar 13 NULL 01/12/20 16 active ProAir HFA NULL 03/13/20 14 suspend ed Singulair NULL 03/13/20 14 active Symbicort NULL 06/06/20 14 suspend ed Terazosin HCl NULL 03/13/20 14 suspend ed Tobramycin- Dexamethaso ne NULL 04/15/20 17 active Topiramate NULL 01/21/20 18 suspend ed Torsemide NULL 12/08/19 19 active traMADol HCl NULL 12/08/19 19 active TRENtal NULL 02/28/20 09 active Tubigrip Elastic Support NULL 08/22/20 13 suspend ed Valsartan NULL 08/07/20 14 suspend ed Vasculera NULL 11/14/19 14 active Warfarin Sodium NULL 03/13/20 14 suspend ed Zolpidem Tartrate NULL 0 14 active Problems Problem Code Type Status Date of Diagnosis Date of Resolution Other specified health status Z78.9(ICD- 10) Diagnosis active 10/13/2017 History of pneumonia (situation) 848699446( SNOMED) Diagnosis active 10/13/2017 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) 81768024(S NOMED) Diagnosis active 10/13/2017 Encounter for immunization Z23(ICD-10 ) Diagnosis active 09/01/2017 Personal history of other drug therapy Z92.29(ICD -10) Diagnosis active 09/01/2017 Lipodermatosclerosis (disorder) 227015026( SNOMED) Problem active Senile hyperkeratosis (disorder) 944809396( SNOMED) Diagnosis active 06/02/2017 Other specified health status Z78.9(ICD- 10) Diagnosis active 04/15/2017 Disorder of skin and/or subcutaneous tissue (disorder) 33324080(S NOMED) Diagnosis active 03/03/2016 Senile hyperkeratosis (disorder) 673767991( SNOMED) Diagnosis active 01/08/2016 Disorder of skin pigmentation (disorder) 18840060(S NOMED) Diagnosis active 02/05/2015 Disorder of skin pigmentation (disorder) 49831560(S NOMED) Diagnosis active 10/16/2014 Disorder of skin and/or subcutaneous tissue (disorder) 98494437(S NOMED) Diagnosis active 03/13/2014 Varicose veins of unspecified lower extremity with inflammation I83.10(ICD -10) Diagnosis active 08/29/2019 Arthritis (disorder) 1765974(SN OMED) Problem active Asthma (disorder) 797473834( SNOMED) Problem active Atrial fibrillation (disorder) 73100561(S NOMED) Problem active Increased blood pressure (finding) 27979461(S NOMED) Problem active Hyperthyroidism (disorder) 12219102(S NOMED) Problem active Malignant neoplasm of prostate (disorder) 280444487( SNOMED) Problem active Varicose veins of unspecified lower extremity with inflammation I83.10(ICD -10) Diagnosis active 12/12/2020 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) 19447731(S NOMED) Diagnosis active 06/17/2021 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) 68096469(S NOMED) Diagnosis active 08/05/2021 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) 49569669(S NOMED) Diagnosis active 12/07/2021 Disorder of skin and/or subcutaneous tissue (disorder) 19521115(S NOMED) Diagnosis active 12/07/2021 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) 82519162(S NOMED) Diagnosis active 03/15/2022 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) 86986231(S NOMED) Diagnosis active 05/14/2022 Varicose vein of lower limb with phlebitis (disorder) 004651052( SNOMED) Diagnosis active 08/16/2022 Varicose vein of lower limb with phlebitis (disorder) 943382612( SNOMED) Diagnosis active 12/01/2022 Atopic dermatitis (disorder) 66039149(S NOMED) Diagnosis active 12/01/2022 Varicose vein of lower limb with phlebitis (disorder) 359907808( SNOMED) Diagnosis active 03/11/2023 Varicose vein of lower limb with phlebitis (disorder) 223839950( SNOMED) Diagnosis active 08/08/2023 Panniculitis (disorder) 43245526(S NOMED) Diagnosis active 11/16/2023 Panniculitis (disorder) 02169450(S NOMED) Diagnosis active 03/30/2024 Seborrheic keratosis (disorder) 304986782( SNOMED) Diagnosis active 03/30/2024 Panniculitis (disorder) 06514843(S NOMED) Diagnosis active 07/23/2024 Panniculitis (disorder) 90886917(S NOMED) Diagnosis active 10/24/2024 Panniculitis (disorder) 96124896(S NOMED) Diagnosis active 01/25/2025 Disorder of pigmentation (disorder) 064468047( SNOMED) Diagnosis active 01/25/2025 Localized edema (finding) 972059810( SNOMED) Diagnosis active 01/25/2025 Allergic rhinitis (disorder) 14526228(S NOMED) Problem active History of migraine (situation) 052638289( SNOMED) Problem active Neuralgia (finding) 66124166(S NOMED) Problem active Neuropathy (disorder) 527935963( SNOMED) Problem active Eczema (disorder) 29031256(S NOMED) Problem active Seborrheic keratosis (disorder) 070846769( SNOMED) Problem active Panniculitis (disorder) 47076216(S NOMED) Diagnosis active 05/20/2025 Panniculitis (disorder) 97227887(S NOMED) Diagnosis active 08/21/2025 Panniculitis (disorder) 43526183(S NOMED) Diagnosis active 08/22/2025 Results No data Encounters Service provided at [facility], [address] [place] [address], [address], [place], [place] [id number]. Office phonenumber is [phone]. Office fax number is [phone]. Encounter Diagnosis Location Date / Time Type Disc harge Status Lipodermatosclerosis (M79.3) [facility] 21:08:52 UTC Reason For Referral No data Procedures Procedure Date Documentation of current medications (pr ocedure) 08/22/2025 12:00 am UTC Documentation of current medications (pr ocedure) 08/21/2025 12:00 am UTC Documentation of current medications (pr ocedure) 05/20/2025 12:00 am UTC Documentation of current medications (pr ocedure) 01/25/2025 12:00 am UTC Documentation of current medications (pr ocedure) 10/24/2024 12:00 am UTC Documentation of current medications (pr ocedure) 07/23/2024 12:00 am UTC Documentation of current medications (pr ocedure) 03/31/2024 12:00 am UTC Documentation of current medications (pr ocedure) 11/16/2023 12:00 am UTC Documentation of current medications (pr ocedure) 08/08/2023 12:00 am UTC Documentation of current medications (pr ocedure) 03/11/2023 12:00 am UTC Documentation of current medications (pr ocedure) 12/01/2022 12:00 am UTC Documentation of current medications (pr ocedure) 08/16/2022 12:00 am UTC Documentation of current medications (pr ocedure) 05/14/2022 12:00 am [place] Documentation of past medical history (p rocedure) Documentation of past medical history (p rocedure) Documentation of past medical history (p rocedure) Documentation of past medical history (p rocedure) Documentation of past medical history (p rocedure) Documentation of past medical history (p rocedure) Documentation of past medical history (p rocedure) Documentation of past medical history (p rocedure) Documentation of past medical history (p rocedure) Documentation of past medical history (p rocedure) Documentation of past medical history (p rocedure) Documentation of past medical history (p rocedure) Documentation of past medical history (p rocedure) Documentation of past medical history (p rocedure) Documentation of past medical history (p rocedure) Total replacement of left knee joint (pr ocedure) Total replacement of right knee joint (p rocedure) Total replacement of right knee joint (p rocedure) Total replacement of left knee joint (pr ocedure) Total replacement of right knee joint (p rocedure) Total replacement of left knee joint (pr ocedure) Total replacement of right knee joint (p rocedure) Total replacement of left knee joint (pr ocedure) Total replacement of left knee joint (pr ocedure) 20 years ago Total replacement of right k nee joint (procedure) 17 years ago Review Of Systems No Data Assessment 1.LipodermatosclerosisOrder Ultrasound:.Order Ultrasound:. Plan of Care Future visit for 08/22/2026 - Follow up in 1 year Code Detail Instructions [id number] betamethasone, augme nted 0.05 % topical cream Apply sparingly to rash on leg twice daily for three weeks, then stop for one week. Repeat cycle as directed. 508343 betamethasone, augme nted 0.05 % topical cream Apply sparingly to rash on leg twice daily for two weeks, then stop for one week. Repeat cycle as directed. 860905 betamethasone, augme nted 0.05 % topical cream Apply sparingly to rash on leg twice daily for two weeks, then stop for one week. Repeat cycle as directed. 339769 betamethasone, augme nted 0.05 % topical cream Apply sparingly to rash on leg twice daily for two weeks, then stop for one week. Repeat cycle as directed. Instructions No Data Social History Code Activity Start Date End Date [id number] (SnapNames) Never smoker Sex Female Sexual orientation Unspecified Gender identity Unspecified Vital Signs No data Insurances Coverage Status Coverage Type Relationship to Subscriber Member Identifier Subscriber Identifier Group Identifier Payer Identifier Active 1 Self [id number] 2 Self [id number]
== END 2025-08-27 10:18 | disposition home or self-care (01) ==
LOC: HO.HMCHD 09:30
PROVIDERS: PCP Family Medicine; Visit Provider Physician Assistant
DX: I10 Essential (primary) hypertension (principal); J45.909 Unspecified asthma, uncomplicated; M19.90 Unspecified osteoarthritis, unspecified site; I48.91 Unspecified atrial fibrillation; I26.99 Other pulmonary embolism without acute cor pulmonale

== ENCOUNTER → 2025-08-27 09:30 | Outpatient (BNVA) | payer MEDICARE, SELFPAY | PROVIDERS: PCP Family Medicine; Visit Provider Physician Assistant | DX: I10 Essential (primary) hypertension (principal); I48.91 Unspecified atrial fibrillation; I26.99 Other pulmonary embolism without acute cor pulmonale; J45.909 Unspecified asthma, uncomplicated; M19.90 Unspecified osteoarthritis, unspecified site; M81.0 Age-related osteoporosis without current pathological fracture; R53.83 Other fatigue; Z79.01 Long term (current) use of anticoagulants; Z13.30 Encounter for screening examination for mental health and behavioral disorders, unspecified | CPT/HCPCS: 96127; 99212 ==